=== PATIENT | male | born 1995 | race African-American/Black ===

== ENCOUNTER 2016-09-28 08:32 | Emergency (ER) | payer MEDICAID ==
[~2016-09-28] VITALS: Ht 177.8 cm; Wt 63.5 kg
[~2016-09-28 08:32] MED LIST: CARI-316 PO; HYDROCODONE/ACETAMINOPHEN PO; RANI-229 PO; TRAZ150T79 PO
[2016-09-28] MEDS ORDERED: SODIUM CHLORIDE 0.9% 1,000 ML IVB ONE (09:19)
[2016-09-28] MEDS ORDERED: MORPHINE SULF INJ 2 MG/ML SYRINGE 1ML IV PRN (09:30)
[2016-09-28] MEDS ORDERED: ONDANSETRON HCL 4 MG/2 ML VIAL IV ONE (09:30)
[2016-09-28] MEDS ORDERED: KETOROLAC TROMETH 30 MG/ML 1ML VIAL IV ONE (09:30)
[2016-09-28 09:36] LABS: Basophils # (auto) 0 uL; Basophils % (auto) 0.4 % (0.0-2.0); CONDITION Y; Eosinophils # (auto) 0.1 uL; Eosinophils % (auto) 1.9 % (0.0-7.0); Hematocrit 43.4 % (41.0-53.0); Hemoglobin 14.5 g/dL (13.5-17.5); Lymphocytes # (auto) 1.7 uL; Lymphocytes % (auto) 37.2 % (10.0-50.0); Mean Corpuscular Hemoglobin 30.6 pg (28.0-32.0); Mean Corpuscular Hgb Conc. 33.4 g/dL (32.0-36.0); Mean Corpuscular Volume 91.8 fL (80.0-100.0); Mean Platelet Volume 7.5 fL (7.4-10.4); Monocytes # (auto) 0.3 uL; Monocytes % (auto) 7.1 % (0.0-12.0); Neutrophils # (auto) 2.5 uL; Neutrophils % (auto) 53.4 % (37.0-80.0); Platelet Count (auto) 260 10^3/uL (140-450); Red Cell Distribution Width 13.4 % (11.6-16.0); White Blood Cell 4.7 10^3/uL (4.4-10.8)
[2016-09-28 09:50] VITALS: BP 144/63
[2016-09-28 10:04] LABS: Albumin 4.1 g/dL (3.4-5.0); BUN/Creatinine Ratio 9.8; Bilirubin, Total 1.5 mg/dL (0.2-1.0); Calcium 8.8 mg/dL (8.5-10.1); Potassium 3.7 mmol/L (3.5-5.1); Total Protein 7.4 g/dL (6.4-8.2)
[2016-09-28 10:13] LABS: Urine Bilirubin Negative (Negative); Urine Blood Negative /uL (Negative); Urine Color Yellow (Yellow); Urine Glucose Normal (Normal); Urine Ketone Negative (Negative); Urine Mucus FEW (None Seen); Urine Nitrite Negative (Negative); Urine RBC <1 /hpf (0 - 3); Urine pH 6.5 (5.0-8.0)
[2016-09-28] MEDS ORDERED: HYDROmorphone HCL 2 MG/ML VL IV ONE (10:15)
[2016-09-28] MEDS ORDERED: PANTOPRAZOLE 40 MG/10 ML VIAL IV ONE (11:00)
== END 2016-09-28 12:10 | disposition home or self-care (01) ==
LOC: ER 08:32
DX: R10.9 Unspecified abdominal pain (principal); R11.2 Nausea with vomiting, unspecified; R31.9 Hematuria, unspecified; M19.90 Unspecified osteoarthritis, unspecified site; K21.9 Gastro-esophageal reflux disease without esophagitis; Z79.899 Other long term (current) drug therapy; Z87.442 Personal history of urinary calculi
CPT/HCPCS: 36415; 74176; 80053; 81001; 83690; 85025; 94761; 96361; 96374; 96375; 99285; C9113; J1170; J1885; J2270; J2405; J7030

== ENCOUNTER 2017-04-23 14:49 | Emergency (ER) | payer MEDICAID ==
[~2017-04-23] VITALS: Ht 177.8 cm; Wt 65.8 kg
[2017-04-23] MEDS ORDERED: SODIUM CHLORIDE 0.9% 1,000 ML IV ONE ×2 (15:04)
[2017-04-23] MEDS ORDERED: ONDANSETRON HCL 4 MG/2 ML VIAL IV ONE (15:15)
[2017-04-23 15:20] LABS: Basophils # (auto) 0.1 uL; Basophils % (auto) 0.7 % (0.0-2.0); Eosinophils # (auto) 0 uL; Eosinophils % (auto) 0.3 % (0.0-7.0); Hematocrit 43.7 % (41.0-53.0); Hemoglobin 14.6 g/dL (13.5-17.5); Lymphocytes # (auto) 1.2 uL; Lymphocytes % (auto) 11.8 % (10.0-50.0); Mean Corpuscular Hemoglobin 30.6 pg (28.0-32.0); Mean Corpuscular Hgb Conc. 33.4 g/dL (32.0-36.0); Mean Corpuscular Volume 91.4 fL (80.0-100.0); Monocytes # (auto) 0.4 uL; Monocytes % (auto) 3.9 % (0.0-12.0); Neutrophils # (auto) 8.8 uL; Neutrophils % (auto) 83.3 % (37.0-80.0); Nucleated Red Blood Cells % 0.1 %; Platelet Count (auto) 276 10^3/uL (140-450); Red Blood Cells 4.78 10^6/uL (4.5-5.90); Red Cell Distribution Width 13.7 % (11.8-14.3); White Blood Cell 10.6 10^3/uL (4.4-10.8)
[2017-04-23 15:49] VITALS: BP 141/78
[2017-04-23 16:12] LABS: Alanine Aminotransferase 16 U/L (16-61); Albumin 4.4 g/dL (3.4-5.0); Alkaline Phosphatase 53 U/L (45-117); Anion Gap 11 (5-15); Aspartate Aminotransferase 13 U/L (15-37); BUN/Creatinine Ratio 5.4; Bilirubin, Total 1.4 mg/dL (0.2-1.0); Blood Urea Nitrogen 5 mg/dL (7-18); Calcium 9.2 mg/dL (8.5-10.1); Carbon Dioxide 22 mmol/L (21-32); Chloride 108 mmol/L (98-107); GFR African American 131 mL/min; GFR Non-African American 108 mL/min; Glucose 102 mg/dL (74-106); Potassium 3.9 mmol/L (3.5-5.1); Sodium 141 mmol/L (136-145); Total Protein 8.2 g/dL (6.4-8.2)
[2017-04-23 17:36] LABS: Urine Bacteria NONE SEEN /hpf (None Seen); Urine Blood Negative /uL (Negative); Urine Mucus FEW (None Seen); Urine Specific Gravity 1.018 (1.001-1.035); Urine WBC <1 /hpf (0 - 3)
== END 2017-04-23 17:43 | disposition home or self-care (01) ==
LOC: EDBD 14:49 → ER 14:49
DX: K52.9 Noninfective gastroenteritis and colitis, unspecified (principal); K21.9 Gastro-esophageal reflux disease without esophagitis; Z87.442 Personal history of urinary calculi
CPT/HCPCS: 36415; 74176; 80053; 81001; 84484; 85025; 96361; 96374; 99285; J2405; J7030

== ENCOUNTER 2017-04-25 07:13 | Inpatient (IN) | payer MEDICAID ==
[~2017-04-25] VITALS: Ht 180.3 cm; Wt 62.0 kg
[2017-04-25] MEDS ORDERED: ONDANSETRON HCL 4 MG/2 ML VIAL IV ONE (08:00)
[2017-04-25] MEDS ORDERED: SODIUM CHLORIDE 0.9% 1,000 ML IV ONE ×3 (08:00→08:37)
[2017-04-25] MEDS ORDERED: ONDANSETRON HCL 4 MG/2 ML VIAL ONE (08:01)
[2017-04-25 08:18] LABS: Basophils # (auto) 0.1 uL; Basophils % (auto) 1.2 % (0.0-2.0); Eosinophils # (auto) 0 uL; Eosinophils % (auto) 0.2 % (0.0-7.0); Hematocrit 42.9 % (41.0-53.0); Hemoglobin 14.5 g/dL (13.5-17.5); Lymphocytes % (auto) 12.5 % (10.0-50.0); Mean Corpuscular Hemoglobin 30.6 pg (28.0-32.0); Mean Corpuscular Hgb Conc. 33.7 g/dL (32.0-36.0); Mean Corpuscular Volume 90.9 fL (80.0-100.0); Monocytes # (auto) 0.4 uL; Monocytes % (auto) 4.6 % (0.0-12.0); Neutrophils # (auto) 6.8 uL; Neutrophils % (auto) 81.5 % (37.0-80.0); Nucleated Red Blood Cells % 0.1 %; Platelet Count (auto) 252 10^3/uL (140-450); Red Blood Cells 4.73 10^6/uL (4.5-5.90); Red Cell Distribution Width 13.8 % (11.8-14.3); White Blood Cell 8.3 10^3/uL (4.4-10.8)
[2017-04-25] MEDS ORDERED: PROMETHAZINE HCL 25 MG/ML 1ML ONE (08:20)
[2017-04-25] MEDS ORDERED: PROMETHAZINE HCL 25 MG/ML 1ML IV ONE (08:30)
[2017-04-25 08:32] LABS: Albumin 4.6 g/dL (3.4-5.0); BUN/Creatinine Ratio 5.8; Bilirubin, Total 2.2 mg/dL (0.2-1.0); Calcium 9.3 mg/dL (8.5-10.1); Potassium 3.2 mmol/L (3.5-5.1); Total Protein 8.2 g/dL (6.4-8.2)
[2017-04-25] MEDS ORDERED: DIAZEPAM 5 MG/ML 2ML SYRG IV ONE (08:45)
[2017-04-25] MEDS ORDERED: NITROGLYCERIN 0.4 MG SL TAB SL PRN (11:15)
[2017-04-25] MEDS ORDERED: ACETAMINOPHEN 500 MG TAB PO PRN (11:15)
[2017-04-25] MEDS ORDERED: FAMOTIDINE (10MG/ML) 2ML VL IV SCH (11:15)
[2017-04-25] MEDS ORDERED: TEMAZEPAM 15 MG CAP PO PRN (11:15)
[2017-04-25] MEDS ORDERED: MORPHINE SULFATE 4 MG/ML SYR/VIAL IV PRN (11:15)
[2017-04-25] MEDS ORDERED: LORazepam 0.5 MG TAB PO PRN (11:15)
[2017-04-25] MEDS ORDERED: HYDROcodone-ACET 5/325MG TAB PO PRN (11:15)
[2017-04-25] MEDS ORDERED: GASTROGRAFIN 30 ML SOL ONE (11:22)
[2017-04-25] MEDS: PROMETHAZINE HCL 25 MG/ML 1ML IV PRN ×2 (11:32→20:41)
[2017-04-25 11:46] LABS: Amylase 110 U/L (25-115); Lipase 124 U/L (73-393)
[2017-04-25] MEDS: SOD CHL 0.9%/ KCL 20MEQ 1,000 ML IV SCH ×2 (11:49→20:43)
[2017-04-25 12:54] LABS: Urine Bacteria NONE SEEN /hpf (None Seen); Urine Blood Negative /uL (Negative); Urine Specific Gravity 1.013 (1.001-1.035); Urine WBC <1 /hpf (0 - 3)
[2017-04-25] MEDS ORDERED: IOHEXOL 300 MG/ML 100ML BOTTLE IJ ONE (13:52)
[2017-04-25 16:12] LABS: Alcohol, Urine < 3.0 mg/dL (0-5); Amphetamine Screen, Urine NEGATIVE (NEGATIVE); Barbiturate Scree,Urine NEGATIVE (NEGATIVE); Benzodiazephine Screen, Urine NEGATIVE (NEGATIVE); Cannabinoid Screen, Urine POSITIVE (NEGATIVE); Cocaine Screen, Urine NEGATIVE (NEGATIVE); Opiate Scree,Urine NEGATIVE (NEGATIVE); Phencyclidine Screen, Urine NEGATIVE (NEGATIVE)
[2017-04-25] MEDS: MORPHINE SULFATE 4 MG/ML SYR/VIAL IV PRN (20:42)
[2017-04-25 22:03] VITALS: BP 152/82
[2017-04-25] MEDS: PANTOPRAZOLE 40 MG TAB PO SCH (22:48)
[2017-04-26] MEDS: PROMETHAZINE HCL 25 MG/ML 1ML IV PRN ×3 (00:49→09:25)
[2017-04-26] MEDS: MORPHINE SULFATE 4 MG/ML SYR/VIAL IV PRN ×3 (00:49→09:26)
[2017-04-26] MEDS: SOD CHL 0.9%/ KCL 20MEQ 1,000 ML IV SCH (03:55)
[2017-04-26 05:08] VITALS: BP 133/73
[2017-04-26] MEDS ORDERED: LIDOCAINE VISCOUS 2% 15ML UD ONE (07:52)
[2017-04-26] MEDS ORDERED: diphenhdrAMINE HCL 50 MG/1 ML VL ONE (07:53)
[2017-04-26 08:30] VITALS: BP 131/75
[2017-04-26] MEDS: PANTOPRAZOLE 40 MG TAB PO SCH ×2 (09:32→09:40)
[2017-04-26 09:35] LABS: INR 1.16 (0.9-1.15); Partial Thromboplastin Time 27.5 sec (22.64-33.71); Prothrombin Time 12.7 sec (9.37-12.3)
[2017-04-26 11:47] VITALS: BP 122/70
[2017-04-26] MEDS: MIDAZOLAM HCL 5 MG/ML-1ML VIAL ONE ×2 (12:18→12:21)
[2017-04-26] MEDS: fentaNYL CITRATE 100 MCG/2 ML VL ONE ×2 (12:18→12:21)
[2017-04-26] MEDS ORDERED: PANT40T PO (13:44)
[2017-04-26] MEDS ORDERED: SUCR1TAB38 PO (13:44)
[2017-04-26 16:56] VITALS: BP 129/82
== END 2017-04-26 19:10 | disposition home or self-care (01) | DRG 241 ==
LOC: EDBD 07:13 → ER 07:17 → TELE 07:18 → TELE-EAST 20:00
PROVIDERS: ADMIT Internal Medicine; ATTEND Hospitalist
PROC: 0DB68ZX Excision of Stomach, Via Natural or Artificial Opening Endoscopic, Diagnostic (ICD-10-PCS; principal; 2017-04-26 12:16)
DX: K29.00 Acute gastritis without bleeding (principal); E87.6 Hypokalemia; K52.9 Noninfective gastroenteritis and colitis, unspecified; F12.90 Cannabis use, unspecified, uncomplicated; K21.9 Gastro-esophageal reflux disease without esophagitis; G47.00 Insomnia, unspecified; Z80.9 Family history of malignant neoplasm, unspecified; Z82.49 Family history of ischemic heart disease and other diseases of the circulatory system; Z87.442 Personal history of urinary calculi; Z79.899 Other long term (current) drug therapy; Z71.51 Drug abuse counseling and surveillance of drug abuser
CPT/HCPCS: 36415; 43239; 71045; 74177; 76705; 80053; 80307; 81001; 82150; 83690; 85025; 85610; 85652; 85730; 96361; 96374; 96375; J2250; J2405; J3490

== ENCOUNTER 2018-03-04 15:28 | Emergency (ER) | payer MEDICAID ==
[~2018-03-04] VITALS: Ht 177.8 cm; Wt 63.5 kg
[~2018-03-04 15:28] MED LIST changes: -CARI-316 PO; +CARI350T22 PO; +PANT40T PO; +SUCR1TAB38 PO
[2018-03-04 15:58] LABS: Basophils # (auto) 0 uL; Basophils % (auto) 0.6 % (0.0-2.0); Eosinophils # (auto) 0 uL; Eosinophils % (auto) 0.6 % (0.0-7.0); Hematocrit 44.6 % (41.0-53.0); Hemoglobin 15.2 g/dL (13.5-17.5); Lymphocytes # (auto) 2.1 uL; Lymphocytes % (auto) 32.2 % (10.0-50.0); Mean Corpuscular Hemoglobin 31.6 pg (28.0-32.0); Mean Corpuscular Hgb Conc. 34.1 g/dL (32.0-36.0); Mean Corpuscular Volume 92.7 fL (80.0-100.0); Monocytes # (auto) 0.5 uL; Monocytes % (auto) 7.5 % (0.0-12.0); Neutrophils # (auto) 3.9 uL; Neutrophils % (auto) 59.1 % (37.0-80.0); Platelet Count (auto) 260 10^3/uL (140-450); Red Blood Cells 4.81 10^6/uL (4.5-5.90); Red Cell Distribution Width 14.1 % (11.8-14.3); White Blood Cell 6.7 10^3/uL (4.4-10.8)
[2018-03-04] MEDS ORDERED: ONDANSETRON HCL 4 MG/2 ML VIAL IV ONE (16:00)
[2018-03-04] MEDS ORDERED: SODIUM CHLORIDE 0.9% 1,000 ML IV ONE (16:00)
[2018-03-04] MEDS ORDERED: KETOROLAC TROMETH 30 MG/ML 1ML VIAL IV ONE (16:00)
[2018-03-04 16:12] LABS: Albumin 4.3 g/dL (3.4-5.0); Amylase 110 U/L (25-115); Anion Gap 1 (5-15); Blood Urea Nitrogen 11 mg/dL (7-18); Calcium 8.9 mg/dL (8.5-10.1); Carbon Dioxide 28 mmol/L (21-32); Chloride 109 mmol/L (98-107); Glucose 92 mg/dL (74-106); Lipase 103 U/L (73-393); Potassium 4.5 mmol/L (3.5-5.1); Sodium 138 mmol/L (136-145)
[2018-03-04 16:16] LABS: Alanine Aminotransferase 21 U/L (16-61); Alkaline Phosphatase 60 U/L (45-117); Aspartate Aminotransferase 14 U/L (15-37); BUN/Creatinine Ratio 10.4; Bilirubin, Total 1.4 mg/dL (0.2-1.0); GFR African American > 60 mL/min; GFR Non-African American > 60 mL/min
[2018-03-04] MEDS ORDERED: MORPHINE SULFATE 10 MG/ML INJ 1ML SDV IV ONE (17:30)
[2018-03-04] MEDS ORDERED: PROMETHAZINE HCL 25 MG/ML 1ML IV ONE (17:30)
[2018-03-04 18:42] VITALS: BP 138/85
[2018-03-04 20:39] LABS: Urine Amorphous Crystal FEW /hpf (None Seen); Urine Bacteria NONE SEEN /hpf (None Seen); Urine Blood Negative /uL (Negative); Urine Mucus FEW (None Seen); Urine Specific Gravity 1.023 (1.001-1.035); Urine WBC 3 /hpf (0 - 3)
== END 2018-03-04 21:48 | disposition home or self-care (01) ==
LOC: ER 15:30
DX: R10.31 Right lower quadrant pain (principal); R11.2 Nausea with vomiting, unspecified; J45.909 Unspecified asthma, uncomplicated; F12.90 Cannabis use, unspecified, uncomplicated; Z87.442 Personal history of urinary calculi; Z79.899 Other long term (current) drug therapy
CPT/HCPCS: 36415; 74176; 80053; 81001; 82150; 83690; 83735; 85025; 94761; 96361; 96374; 96375; 99284; J1885; J2270; J2405; J2550; J7030

== ENCOUNTER 2019-02-28 11:08 | Emergency (ER) | payer MEDICAID ==
[~2019-02-28] VITALS: Ht 175.3 cm; Wt 63.5 kg
[2019-02-28 12:38] LABS: Basophils # (auto) 0.1 uL; Basophils % (auto) 0.7 % (0.0-2.0); Eosinophils # (auto) 0.1 uL; Eosinophils % (auto) 0.7 % (0.0-7.0); Hematocrit 47.2 % (41.0-53.0); Hemoglobin 15.7 g/dL (13.5-17.5); Lymphocytes # (auto) 0.9 uL; Lymphocytes % (auto) 7.1 % (10.0-50.0); Mean Corpuscular Hemoglobin 30.6 pg (28.0-32.0); Mean Corpuscular Hgb Conc. 33.3 g/dL (32.0-36.0); Mean Corpuscular Volume 91.8 fL (80.0-100.0); Monocytes # (auto) 0.9 uL; Monocytes % (auto) 6.4 % (0.0-12.0); Neutrophils # (auto) 11.3 uL; Neutrophils % (auto) 85.1 % (37.0-80.0); Platelet Count (auto) 256 10^3/uL (140-450); Red Blood Cells 5.15 10^6/uL (4.5-5.90); Red Cell Distribution Width 14.5 % (11.8-14.3); White Blood Cell 13.3 10^3/uL (4.4-10.8)
[2019-02-28] MEDS ORDERED: MORPHINE SULFATE 4 MG/ML SYR/VIAL IV ONE (12:45)
[2019-02-28] MEDS ORDERED: PROCHLORPERAZINE EDISYLATE 5 MG/ML 2ML VIAL IV ONE (12:45)
[2019-02-28 12:53] VITALS: BP 119/71
[2019-02-28 12:54] LABS: Albumin 4.2 g/dL (3.4-5.0); Calcium 9.3 mg/dL (8.5-10.1); Potassium 4.9 mmol/L (3.5-5.1)
[2019-02-28 12:57] LABS: BUN/Creatinine Ratio 10.9; Bilirubin, Total 1.4 mg/dL (0.2-1.0); Total Protein 8.2 g/dL (6.4-8.2)
[2019-02-28] MEDS ORDERED: IOHEXOL 300 MG/ML 100ML BOTTLE IJ ONE (13:01)
== END 2019-02-28 15:54 | disposition home or self-care (01) ==
LOC: MERGE 11:08 → EDBD 11:08 → ER 11:08
DX: E86.0 Dehydration (principal); D72.829 Elevated white blood cell count, unspecified; J45.909 Unspecified asthma, uncomplicated; K21.9 Gastro-esophageal reflux disease without esophagitis
CPT/HCPCS: 36415; 74177; 80053; 85025; 96374; 96375; 99284; J0780; J2270; J7030; Q9967

== ENCOUNTER 2019-04-13 15:18 | Emergency (ER) | payer MEDICAID ==
[~2019-04-13] VITALS: Ht 180.3 cm; Wt 63.5 kg
[2019-04-13 19:07] VITALS: BP 129/87
[2019-04-13] MEDS ORDERED: cefTRIAXone SOD 1,000 MG VL ONE (19:27)
[2019-04-13] MEDS ORDERED: KETOROLAC TROMETH 60MG/2ML VIAL IM ONE (19:30)
[2019-04-13] MEDS ORDERED: cefTRIAXone W LIDOCAINE 1 GM IM IM ONE (19:30)
[2019-04-13] MEDS ORDERED: LIDOCAINE VISCOUS 2% 15ML UD MT ONE (19:30)
== END 2019-04-13 19:45 | disposition home or self-care (01) ==
LOC: ER 15:24
DX: G89.18 Other acute postprocedural pain (principal); R07.0 Pain in throat; J45.909 Unspecified asthma, uncomplicated; Z90.89 Acquired absence of other organs; Z88.8 Allergy status to other drugs, medicaments and biological substances; Z79.899 Other long term (current) drug therapy
CPT/HCPCS: 96372; 99284; J0696; J1885

== ENCOUNTER 2019-08-27 15:13 | Emergency (ER) | payer MEDICAID ==
[~2019-08-27] VITALS: Ht 177.8 cm; Wt 63.5 kg
[~2019-08-27 15:13] MED LIST changes: -RANI-229 PO; +RANI300T PO
[2019-08-27 17:02] LABS: Basophils # (auto) 0 10 ^3/uL (0-0.2); Basophils % (auto) 0.7 % (0.0-2.0); Eosinophils # (auto) 0 10 ^3/uL (0-0.8); Eosinophils % (auto) 0.6 % (0.0-7.0); Hematocrit 45.6 % (41.0-53.0); Hemoglobin 15.2 g/dL (13.5-17.5); Lymphocytes # (auto) 1.7 10 ^3/uL (0.4-5.4); Lymphocytes % (auto) 28.4 % (10.0-50.0); Mean Corpuscular Hemoglobin 30.4 pg (28.0-32.0); Mean Corpuscular Hgb Conc. 33.3 g/dL (32.0-36.0); Mean Corpuscular Volume 91.2 fL (80.0-100.0); Monocytes # (auto) 0.4 10 ^3/uL (0-1.3); Monocytes % (auto) 6.5 % (0.0-12.0); Neutrophils # (auto) 3.8 10 ^3/uL (1.6-8.6); Neutrophils % (auto) 63.8 % (37.0-80.0); Nucleated Red Blood Cells % 0.1 %; Platelet Count (auto) 253 10^3/uL (140-450)
[2019-08-27] MEDS ORDERED: SODIUM CHLORIDE 0.9% 1,000 ML IV ONE ×2 (17:04)
[2019-08-27 17:11] LABS: Albumin 4.4 g/dL (3.4-5.0); BUN/Creatinine Ratio 8.3; Bilirubin, Total 1.7 mg/dL (0.2-1.0); Calcium 9.6 mg/dL (8.5-10.1); Total Protein 8.3 g/dL (6.4-8.2)
[2019-08-27 18:01] VITALS: BP 145/84
== END 2019-08-27 18:33 | disposition home or self-care (01) ==
LOC: ER 15:13
DX: E86.0 Dehydration (principal); J40 Bronchitis, not specified as acute or chronic; R51 Headache; Z87.442 Personal history of urinary calculi
CPT/HCPCS: 36415; 71045; 80053; 83690; 85025; 93005; 96360; 99285; J7030

== ENCOUNTER 2020-03-14 22:04 | Emergency (ER) | payer MEDICAID ==
[~2020-03-14] VITALS: Ht 177.8 cm; Wt 63.5 kg
[~2020-03-14 22:04] MED LIST changes: +SUCR1TAB22 PO; -SUCR1TAB38 PO; -TRAZ150T79 PO; +TRAZ1TAB12 PO
[2020-03-14 22:18] VITALS: BP 130/84
[2020-03-14] MEDS ORDERED: ACETAMINOPHEN 500 MG TAB PO ONE (23:30)
== END 2020-03-15 00:06 | disposition home or self-care (01) ==
LOC: ER 22:05
DX: J01.90 Acute sinusitis, unspecified (principal); R51.9 Headache, unspecified; J45.909 Unspecified asthma, uncomplicated; Z20.822 Contact with and (suspected) exposure to COVID-19; Z87.442 Personal history of urinary calculi
CPT/HCPCS: 36415; 71046; 87426

== ENCOUNTER 2020-10-18 07:35 | Emergency (ER) | payer MEDICAID ==
[~2020-10-18] VITALS: Ht 177.8 cm; Wt 63.5 kg
[2020-10-18 07:35] VITALS: BP 116/60
[2020-10-18 08:06] LABS: Basophils # (auto) 0.1 10 ^3/uL (0-0.2); Eosinophils # (auto) 0.1 10 ^3/uL (0-0.8); Eosinophils % (auto) 1.8 % (0.0-7.0); Hematocrit 41.5 % (41.0-53.0); Hemoglobin 14.4 g/dL (13.5-17.5); Lymphocytes # (auto) 1.9 10 ^3/uL (0.4-5.4); Mean Corpuscular Hemoglobin 31.4 pg (28.0-32.0); Mean Corpuscular Hgb Conc. 34.7 g/dL (32.0-36.0); Mean Corpuscular Volume 90.4 fL (80.0-100.0); Monocytes # (auto) 0.5 10 ^3/uL (0-1.3); Monocytes % (auto) 8.4 % (0.0-12.0); Neutrophils # (auto) 3.8 10 ^3/uL (1.6-8.6); Neutrophils % (auto) 59.8 % (37.0-80.0); Nucleated Red Blood Cells % 0.1 %; Red Blood Cells 4.59 10^6/uL (4.5-5.90); Red Cell Distribution Width 13.7 % (11.8-14.3); White Blood Cell 6.4 10^3/uL (4.4-10.8)
[2020-10-18] MEDS ORDERED: ONDANSETRON HCL 4 MG/2 ML VIAL IV ONE (08:15)
[2020-10-18] MEDS ORDERED: SODIUM CHLORIDE 0.9% 1,000 ML IV ONE (08:15)
[2020-10-18 08:29] LABS: Calcium 8.9 mg/dL (8.5-10.1); Potassium 3.7 mmol/L (3.5-5.1)
[2020-10-18 08:33] LABS: BUN/Creatinine Ratio 8.2; Bilirubin, Total 1.6 mg/dL (0.2-1.0); Total Protein 7.6 g/dL (6.4-8.2)
== END 2020-10-18 09:07 | disposition left against medical advice (07) ==
LOC: ER 07:35
DX: R10.10 Upper abdominal pain, unspecified (principal); R11.2 Nausea with vomiting, unspecified; K21.9 Gastro-esophageal reflux disease without esophagitis; Z53.21 Procedure and treatment not carried out due to patient leaving prior to being seen by health care provider
CPT/HCPCS: 36415; 80053; 85025; J2405

== ENCOUNTER 2020-10-21 10:06 | Emergency (ER) | payer MEDICAID ==
[~2020-10-21] VITALS: Ht 177.8 cm; Wt 63.5 kg
[2020-10-21] MEDS ORDERED: SODIUM CHLORIDE 0.9% 1,000 ML IV ONE (10:30)
[2020-10-21] MEDS ORDERED: KETOROLAC TROMETH 30 MG/ML 1ML VIAL IV ONE (10:30)
[2020-10-21 10:57] VITALS: BP 131/71
[2020-10-21 11:35] LABS: Basophils # (auto) 0.1 10 ^3/uL (0-0.2); Basophils % (auto) 0.7 % (0.0-2.0); Eosinophils # (auto) 0 10 ^3/uL (0-0.8); Eosinophils % (auto) 0.1 % (0.0-7.0); Hematocrit 43.2 % (41.0-53.0); Lymphocytes # (auto) 1.7 10 ^3/uL (0.4-5.4); Lymphocytes % (auto) 24.4 % (10.0-50.0); Mean Corpuscular Hemoglobin 31.5 pg (28.0-32.0); Mean Corpuscular Hgb Conc. 34.7 g/dL (32.0-36.0); Mean Corpuscular Volume 90.7 fL (80.0-100.0); Monocytes # (auto) 0.5 10 ^3/uL (0-1.3); Neutrophils # (auto) 4.6 10 ^3/uL (1.6-8.6); Neutrophils % (auto) 66.8 % (37.0-80.0); Red Blood Cells 4.77 10^6/uL (4.5-5.90); Red Cell Distribution Width 13.4 % (11.8-14.3); White Blood Cell 6.8 10^3/uL (4.4-10.8)
[2020-10-21 12:18] LABS: Potassium 3.5 mmol/L (3.5-5.1); Sodium 135 mmol/L (136-145)
[2020-10-21 12:19] LABS: Alanine Aminotransferase 20 U/L (16-61); Alkaline Phosphatase 45 U/L (45-117); Anion Gap 9 (5-15); Aspartate Aminotransferase 14 U/L (15-37); BUN/Creatinine Ratio 11.5; Blood Urea Nitrogen 14 mg/dL (7-18); Calcium 8.9 mg/dL (8.5-10.1); Carbon Dioxide 21 mmol/L (21-32); Chloride 105 mmol/L (98-107); GFR African American 92 mL/min; GFR Non-African American 76 mL/min; Glucose 113 mg/dL (74-106)
[2020-10-21 12:20] LABS: Albumin 3.8 g/dL (3.4-5.0); Amylase 86 U/L (25-115); Bilirubin, Total 2.3 mg/dL (0.2-1.0); Lipase 130 U/L (73-393); Total Protein 7.6 g/dL (6.4-8.2)
== END 2020-10-21 13:23 | disposition home or self-care (01) ==
LOC: ER 10:06
DX: R10.84 Generalized abdominal pain (principal); R11.2 Nausea with vomiting, unspecified; J45.909 Unspecified asthma, uncomplicated; F12.10 Cannabis abuse, uncomplicated; Z87.442 Personal history of urinary calculi
CPT/HCPCS: 36415; 74176; 80053; 82150; 83690; 85025; 96361; 96374; 99284; J1885; J7030

== ENCOUNTER 2021-07-29 06:45 | Emergency (ER) | payer MEDICAID ==
[~2021-07-29] VITALS: Ht 177.8 cm; Wt 63.5 kg
[2021-07-29] MEDS ORDERED: PROCHLORPERAZINE EDISYLATE 5 MG/ML 2ML VIAL IV ONE (08:15)
[2021-07-29] MEDS ORDERED: ALUM & MAG HYDROX-SIMETH LIQ(MAALOX) 30 ML PO ONE (08:15)
[2021-07-29] MEDS ORDERED: SODIUM CHLORIDE 0.9% 500 ML IVB ONE (08:15)
[2021-07-29] MEDS ORDERED: PANTOPRAZOLE 40 MG TAB PO ONE (08:15)
[2021-07-29] MEDS ORDERED: SODIUM CHLORIDE 0.9% 1,000 ML IV ONE (08:15)
[2021-07-29] MEDS ORDERED: DONNATAL 5ml ORAL Elix (BELLADONNA ALK-PHENOBARB) PO ONE (08:15)
[2021-07-29 08:21] LABS: Basophils # (auto) 0 10 ^3/uL (0-0.2); Basophils % (auto) 0.7 % (0.0-2.0); Eosinophils # (auto) 0 10 ^3/uL (0-0.8); Eosinophils % (auto) 0.4 % (0.0-7.0); Hematocrit 40.3 % (41.0-53.0); Hemoglobin 13.9 g/dL (13.5-17.5); Lymphocytes # (auto) 1.5 10 ^3/uL (0.4-5.4); Lymphocytes % (auto) 22.5 % (10.0-50.0); Mean Corpuscular Hemoglobin 31.1 pg (28.0-32.0); Mean Corpuscular Hgb Conc. 34.6 g/dL (32.0-36.0); Monocytes # (auto) 0.6 10 ^3/uL (0-1.3); Neutrophils # (auto) 4.4 10 ^3/uL (1.6-8.6); Neutrophils % (auto) 67.4 % (37.0-80.0); Nucleated Red Blood Cells % 0.2 %; Red Blood Cells 4.48 10^6/uL (4.5-5.90); Red Cell Distribution Width 13.3 % (11.8-14.3); White Blood Cell 6.6 10^3/uL (4.4-10.8)
[2021-07-29 08:40] LABS: Albumin 3.8 g/dL (3.4-5.0); Calcium 8.5 mg/dL (8.5-10.1); Potassium 3.4 mmol/L (3.5-5.1)
[2021-07-29 08:40] LABS: Urine Bacteria NONE SEEN /hpf (None Seen); Urine Blood Negative /uL (Negative); Urine Mucus FEW (None Seen); Urine Specific Gravity 1.019 (1.001-1.035); Urine WBC 4 /hpf (0 - 3)
[2021-07-29 08:45] LABS: BUN/Creatinine Ratio 13.5; Bilirubin, Total 2.2 mg/dL (0.2-1.0)
[2021-07-29 08:50] LABS: Magnesium 2.2 mg/dL (1.6-2.6)
[2021-07-29 08:52] LABS: Benzodiazephine Screen, Urine NEGATIVE (NEGATIVE)
[2021-07-29 09:14] LABS: Alcohol, Urine < 3.0 mg/dL (0-10); Amphetamine Screen, Urine NEGATIVE (NEGATIVE); Barbiturate Scree,Urine NEGATIVE (NEGATIVE); Cannabinoid Screen, Urine POSITIVE (NEGATIVE); Cocaine Screen, Urine NEGATIVE (NEGATIVE); Opiate Scree,Urine NEGATIVE (NEGATIVE); Phencyclidine Screen, Urine NEGATIVE (NEGATIVE)
[2021-07-29 09:36] VITALS: BP 123/78
[2021-07-29] MEDS ORDERED: diphenhdrAMINE HCL 25 MG CAP PO ONE (10:00)
[2021-07-29] MEDS ORDERED: POTASSIUM EFFERVESENT TAB 25 MEQ PO ONE (10:15)
[2021-07-29] MEDS ORDERED: PANT40TA2 PO (11:00)
== END 2021-07-29 11:12 | disposition home or self-care (01) ==
LOC: ER 06:45 → EDBD 06:45 → ER 11:12
DX: R11.2 Nausea with vomiting, unspecified (principal); E87.6 Hypokalemia; E80.6 Other disorders of bilirubin metabolism; F12.10 Cannabis abuse, uncomplicated; J45.909 Unspecified asthma, uncomplicated; K21.9 Gastro-esophageal reflux disease without esophagitis; Z90.89 Acquired absence of other organs; Z79.899 Other long term (current) drug therapy; Z88.8 Allergy status to other drugs, medicaments and biological substances
CPT/HCPCS: 36415; 80053; 80307; 81001; 83690; 83735; 85025; 96361; 96374; 99284; J0780; J7030

== ENCOUNTER 2023-05-13 07:17 | Emergency (ER) | payer MEDICAID ==
[~2023-05-13] VITALS: Ht 177.8 cm; Wt 58.8 kg
[~2023-05-13 07:17] MED LIST changes: +CARI-578 PO; -CARI350T22 PO; +PANT40TA2 PO; -SUCR1TAB22 PO; +SUCR1TAB31 PO
[2023-05-13 07:30] VITALS: PULSE 86; RESP 19; TEMP 97.8; O2SAT 96
[2023-05-13 08:16] LABS: Basophils # (auto) 0.1 10 ^3/uL (0-0.2); Basophils % (auto) 0.6 % (0.0-2.0); Eosinophils # (auto) 0 10 ^3/uL (0-0.8); Eosinophils % (auto) 0.3 % (0.0-7.0); Hematocrit 47.8 % (41.0-53.0); Hemoglobin 16.2 g/dL (13.5-17.5); Lymphocytes # (auto) 1.8 10 ^3/uL (0.4-5.4); Lymphocytes % (auto) 22.2 % (10.0-50.0); Mean Corpuscular Hemoglobin 31.4 pg (28.0-32.0); Mean Corpuscular Hgb Conc. 33.8 g/dL (32.0-36.0); Mean Corpuscular Volume 92.9 fL (80.0-100.0); Monocytes # (auto) 0.9 10 ^3/uL (0-1.3); Monocytes % (auto) 11.8 % (0.0-12.0); Neutrophils # (auto) 5.2 10 ^3/uL (1.6-8.6); Neutrophils % (auto) 65.1 % (37.0-80.0); Nucleated Red Blood Cells % 0.4 %; Red Blood Cells 5.15 10^6/uL (4.5-5.90); Red Cell Distribution Width 13.2 % (11.8-14.3)
[2023-05-13 08:23] LABS: Alanine Aminotransferase 15 U/L (7-40); Albumin 5.2 g/dL (3.2-4.8); Alkaline Phosphatase 55 U/L (46-116); Anion Gap 9 (5-15); Aspartate Aminotransferase 12 U/L (13-40); Blood Urea Nitrogen 19 mg/dL (9-23); Calcium 10.3 mg/dL (8.5-10.1); Carbon Dioxide 27 mmol/L (20-30); Chloride 97 mmol/L (98-107); Glucose 132 mg/dL (74-106); Potassium 3.6 mmol/L (3.5-5.1); Sodium 133 mmol/L (136-145)
[2023-05-13 08:24] LABS: Bilirubin, Total 1.6 mg/dL (0.2-1.0); Total Protein 8.3 g/dL (5.7-8.2)
[2023-05-13] MEDS: ONDANSETRON HCL 4 MG/2 ML VIAL IV ONE (08:35)
[2023-05-13] MEDS: SODIUM CHLORIDE 0.9% 1,000 ML IV ONE (08:35)
[2023-05-13 09:16] LABS: Lipase 39 U/L (12-53)
[2023-05-13 10:05] LABS: Urine Bacteria FEW /hpf (None Seen); Urine Blood 1+ /uL (Negative); Urine Clarity Clear (Clear); Urine Color Yellow (Yellow); Urine Hyaline Cast MOD /lpf (0 - 2); Urine Mucus FEW (None Seen); Urine Protein, UAD 1+ (Negative); Urine Specific Gravity 1.028 (1.001-1.035); Urine Urobilinogen Normal (Negative); Urine WBC 8 /hpf (0 - 3)
[2023-05-13 10:23] LABS: Amphetamine Screen, Urine Neg (NEGATIVE)
[2023-05-13 10:24] LABS: Benzodiazephine Screen, Urine Neg (NEGATIVE)
[2023-05-13 10:25] LABS: Barbiturate Scree,Urine Neg (NEGATIVE)
[2023-05-13 10:26] LABS: Cannabinoid Screen, Urine Pos (NEGATIVE); Cocaine Screen, Urine Neg (NEGATIVE); Opiate Scree,Urine Neg (NEGATIVE); Phencyclidine Screen, Urine Neg (NEGATIVE)
[2023-05-13] MEDS: KETOROLAC TROMETH 30 MG/ML 1ML VIAL IV ONE (11:28)
[2023-05-13] MEDS ORDERED: BACDST PO (11:39)
[2023-05-13] MEDS ORDERED: ZOFR4T PO (11:39)
[2023-05-13] MEDS: cefTRIAXone 1GM/50ML D5W 50 ML IV ONE (11:54)
[2023-05-13 12:40] VITALS: BP 104/67; PULSE 80; RESP 17; O2SAT 97
== END 2023-05-13 12:44 | disposition home or self-care (01) ==
LOC: ER 07:17
DX: R11.2 Nausea with vomiting, unspecified (principal); F12.10 Cannabis abuse, uncomplicated; R19.7 Diarrhea, unspecified; R10.84 Generalized abdominal pain; K21.9 Gastro-esophageal reflux disease without esophagitis; J45.909 Unspecified asthma, uncomplicated; Z90.89 Acquired absence of other organs; Z79.899 Other long term (current) drug therapy; Z88.8 Allergy status to other drugs, medicaments and biological substances
CPT/HCPCS: 36415; 80053; 80307; 81001; 82962; 83690; 85025; 96361; 96365; 96375; 99285; J0696; J1885; J2405; J7030

== ENCOUNTER 2023-08-02 14:21 | Emergency (ER) | payer MEDICAID, OTHER ==
[~2023-08-02] VITALS: Ht 177.8 cm; Wt 61.1 kg
[~2023-08-02 14:21] MED LIST changes: +BACDST PO; +ZOFR4T PO
[2023-08-02] MEDS: PANTOPRAZOLE 40 MG/10 ML VIAL INJ IV ONE (15:05)
[2023-08-02] MEDS: PROCHLORPERAZINE EDISYLATE 5 MG/ML 2ML VIAL IV ONE (15:05)
[2023-08-02 15:08] VITALS: TEMP 98.4; O2SAT 98
[2023-08-02] MEDS: MORPHINE SULFATE 4 MG/ML SYR/VIAL IV ONE (15:09)
[2023-08-02] MEDS: SODIUM CHLORIDE 0.9% 1,000 ML IVB ONE (15:11)
[2023-08-02 15:39] VITALS: BP 126/76; PULSE 70; RESP 18
[2023-08-02 15:43] LABS: Basophils # (auto) 0.1 10 ^3/uL (0-0.2); Basophils % (auto) 0.8 % (0.0-2.0); Eosinophils # (auto) 0.1 10 ^3/uL (0-0.8); Lymphocytes # (auto) 1.4 10 ^3/uL (0.4-5.4); Monocytes # (auto) 0.8 10 ^3/uL (0-1.3); Nucleated Red Blood Cells % 0.1 %; Red Blood Cells 4.66 10^6/uL (4.5-5.90); White Blood Cell 11.2 10^3/uL (4.4-10.8)
[2023-08-02 15:45] LABS: Eosinophils % (auto) 0.5 % (0.0-7.0); Hematocrit 41.9 % (41.0-53.0); Hemoglobin 14.7 g/dL (13.5-17.5); Lymphocytes % (auto) 12.7 % (10.0-50.0); Mean Corpuscular Hemoglobin 31.5 pg (28.0-32.0); Mean Corpuscular Hgb Conc. 35.1 g/dL (32.0-36.0); Mean Corpuscular Volume 89.8 fL (80.0-100.0); Monocytes % (auto) 6.9 % (0.0-12.0); Neutrophils # (auto) 8.9 10 ^3/uL (1.6-8.6); Neutrophils % (auto) 79.1 % (37.0-80.0); Red Cell Distribution Width 13.1 % (11.8-14.3)
[2023-08-02 15:50] LABS: Alanine Aminotransferase 16 U/L (7-40); Albumin 4.7 g/dL (3.2-4.8); Alkaline Phosphatase 82 U/L (46-116); Anion Gap 8 (5-15); Aspartate Aminotransferase 14 U/L (13-40); Blood Urea Nitrogen 8 mg/dL (9-23); Calcium 10.1 mg/dL (8.7-10.4); Carbon Dioxide 23 mmol/L (20-30); Chloride 106 mmol/L (98-107); Glucose 107 mg/dL (74-106); Lipase 35 U/L (12-53); Sodium 137 mmol/L (136-145)
[2023-08-02 15:51] LABS: Bilirubin, Total 1.2 mg/dL (0.2-1.0); Total Protein 8.4 g/dL (5.7-8.2)
== END 2023-08-02 15:54 | disposition left against medical advice (07) ==
LOC: ER 14:22
DX: F12.188 Cannabis abuse with other cannabis-induced disorder (principal); J45.909 Unspecified asthma, uncomplicated; K21.9 Gastro-esophageal reflux disease without esophagitis; Z87.442 Personal history of urinary calculi
CPT/HCPCS: 36415; 80053; 83690; 85025; 96361; 96374; 96375; 99284; C9113; J0780; J2270; J7030

== ENCOUNTER 2023-09-01 01:27 | Inpatient (IN) | payer MEDICAID, OTHER ==
[~2023-09-01] VITALS: Ht 177.8 cm; Wt 69.3 kg
[2023-09-01] MEDS: SODIUM CHLORIDE 0.9% 1,000 ML IVB ONE (02:30)
[2023-09-01] MEDS: ONDANSETRON HCL 4 MG/2 ML VIAL IV ONE ×2 (02:55→05:36)
[2023-09-01] MEDS: PANTOPRAZOLE 40 MG/10 ML VIAL INJ IV ONE (02:55)
[2023-09-01 02:56] LABS: Basophils # (auto) 0.1 10 ^3/uL (0-0.2); Basophils % (auto) 0.7 % (0.0-2.0); Eosinophils # (auto) 0 10 ^3/uL (0-0.8); Eosinophils % (auto) 0.1 % (0.0-7.0)
[2023-09-01 02:57] LABS: Hematocrit 43.6 % (41.0-53.0); Hemoglobin 14.7 g/dL (13.5-17.5); Lymphocytes % (auto) 6.3 % (10.0-50.0); Mean Corpuscular Hemoglobin 30.5 pg (28.0-32.0); Mean Corpuscular Hgb Conc. 33.6 g/dL (32.0-36.0); Mean Corpuscular Volume 90.7 fL (80.0-100.0); Monocytes # (auto) 0.7 10 ^3/uL (0-1.3); Monocytes % (auto) 4.4 % (0.0-12.0); Neutrophils # (auto) 13.8 10 ^3/uL (1.6-8.6); Neutrophils % (auto) 88.5 % (37.0-80.0); Red Blood Cells 4.81 10^6/uL (4.5-5.90); Red Cell Distribution Width 14.6 % (11.8-14.3); White Blood Cell 15.5 10^3/uL (4.4-10.8)
[2023-09-01 03:09] LABS: Alanine Aminotransferase 59 U/L (7-40); Albumin 4.3 g/dL (3.2-4.8); Alkaline Phosphatase 173 U/L (46-116); Anion Gap 9 (5-15); Aspartate Aminotransferase 30 U/L (13-40); BUN/Creatinine Ratio 9.4 (10.0-20.0); Bilirubin, Total 1.3 mg/dL (0.2-1.0); Blood Urea Nitrogen 10 mg/dL (9-23); Calcium 10.4 mg/dL (8.7-10.4); Carbon Dioxide 24 mmol/L (20-30); Chloride 108 mmol/L (98-107); Glucose 146 mg/dL (74-106); Lipase 23 U/L (12-53); Potassium 4.2 mmol/L (3.5-5.1); Sodium 141 mmol/L (136-145); Total Protein 8.1 g/dL (5.7-8.2)
[2023-09-01] MEDS ORDERED: ZOFR4T PO (05:27)
[2023-09-01] MEDS: KETOROLAC TROMETH 30 MG/ML 1ML VIAL IV ONE (05:36)
[2023-09-01] MEDS: SODIUM CHLORIDE 0.9% 1,000 ML IV ONE (05:36)
[2023-09-01] MEDS: IOHEXOL 300 MG/ML 100ML BOTTLE IJ ONE (06:13)
[2023-09-01] MEDS: SODIUM CHLORIDE 0.9% 1,000 ML IV SCH ×2 (06:30→08:30)
[2023-09-01 06:36] LABS: Chloride 111 mmol/L (98-107); Potassium 4.5 mmol/L (3.5-5.1); Sodium 141 mmol/L (136-145)
[2023-09-01 06:37] LABS: Anion Gap 5 (5-15); Calcium 8.9 mg/dL (8.7-10.4); Carbon Dioxide 25 mmol/L (20-30)
[2023-09-01 06:38] LABS: Basophils # (auto) 0.1 10 ^3/uL (0-0.2); Basophils % (auto) 0.3 % (0.0-2.0); Eosinophils # (auto) 0 10 ^3/uL (0-0.8); Hematocrit 38.1 % (41.0-53.0); Hemoglobin 12.6 g/dL (13.5-17.5); Lymphocytes # (auto) 0.6 10 ^3/uL (0.4-5.4); Lymphocytes % (auto) 3.2 % (10.0-50.0); Mean Corpuscular Hemoglobin 30.2 pg (28.0-32.0); Mean Corpuscular Hgb Conc. 33.2 g/dL (32.0-36.0); Monocytes # (auto) 0.4 10 ^3/uL (0-1.3); Monocytes % (auto) 2.1 % (0.0-12.0); Neutrophils # (auto) 18.5 10 ^3/uL (1.6-8.6); Neutrophils % (auto) 94.4 % (37.0-80.0); Red Blood Cells 4.19 10^6/uL (4.5-5.90); Red Cell Distribution Width 14.3 % (11.8-14.3); White Blood Cell 19.6 10^3/uL (4.4-10.8)
[2023-09-01 06:42] LABS: Glucose 129 mg/dL (74-106)
[2023-09-01 07:01] LABS: BUN/Creatinine Ratio 14.4 (10.0-20.0); Blood Urea Nitrogen 13 mg/dL (9-23)
[2023-09-01 07:34] VITALS: PULSE 78
[2023-09-01] MEDS: PROCHLORPERAZINE EDISYLATE 5 MG/ML 2ML VIAL IV ONE (09:01)
[2023-09-01] MEDS: PANTOPRAZOLE 40 MG/10 ML VIAL INJ IV SCH (09:03)
[2023-09-01] MEDS: PIPERACILLIN-TAZOB 3.375GM 100 ML IV SCH (12:34)
[2023-09-01] MEDS: ONDANSETRON HCL 4 MG/2 ML VIAL IV PRN (12:35)
[2023-09-01] MEDS: VANCOMYCIN HCL 125 MG CAP PO SCH (14:00)
[2023-09-01 20:00] VITALS: PULSE 68; RESP 17
[2023-09-01 22:00] VITALS: BP 113/64; PULSE 68; RESP 17; TEMP 99.3; O2SAT 97
[2023-09-02] MEDS ORDERED: HYDROcodone-ACET 5/325MG TAB PO PRN (00:15)
[2023-09-02] MEDS ORDERED: ACETAMINOPHEN 325 MG TAB PO PRN (00:15)
[2023-09-02] MEDS: MORPHINE SULFATE INJ 2 MG/ml SYRG IV PRN (01:58)
[2023-09-02 04:19] LABS: Basophils # (auto) 0 10 ^3/uL (0-0.2); Basophils % (auto) 0.3 % (0.0-2.0); Eosinophils # (auto) 0 10 ^3/uL (0-0.8); Eosinophils % (auto) 0.1 % (0.0-7.0); Hematocrit 34.1 % (41.0-53.0); Hemoglobin 11.5 g/dL (13.5-17.5); Lymphocytes # (auto) 1.2 10 ^3/uL (0.4-5.4); Lymphocytes % (auto) 12.2 % (10.0-50.0); Mean Corpuscular Hemoglobin 30.8 pg (28.0-32.0); Mean Corpuscular Hgb Conc. 33.9 g/dL (32.0-36.0); Mean Corpuscular Volume 90.8 fL (80.0-100.0); Monocytes # (auto) 0.7 10 ^3/uL (0-1.3); Monocytes % (auto) 7.6 % (0.0-12.0); Neutrophils # (auto) 7.7 10 ^3/uL (1.6-8.6); Neutrophils % (auto) 79.8 % (37.0-80.0); Red Blood Cells 3.75 10^6/uL (4.5-5.90); Red Cell Distribution Width 14.6 % (11.8-14.3); White Blood Cell 9.6 10^3/uL (4.4-10.8)
[2023-09-02 04:38] LABS: Alanine Aminotransferase 37 U/L (7-40); Albumin 3.4 g/dL (3.2-4.8); Alkaline Phosphatase 118 U/L (46-116); Anion Gap 6 (5-15); Aspartate Aminotransferase 15 U/L (13-40); BUN/Creatinine Ratio 12.2 (10.0-20.0); Bilirubin, Total 1.4 mg/dL (0.2-1.0); Blood Urea Nitrogen 10 mg/dL (9-23); Calcium 8.6 mg/dL (8.7-10.4); Carbon Dioxide 24 mmol/L (20-30); Chloride 109 mmol/L (98-107); Glucose 99 mg/dL (74-106); Potassium 3.6 mmol/L (3.5-5.1); Sodium 139 mmol/L (136-145); Total Protein 6.1 g/dL (5.7-8.2)
[2023-09-02] MEDS: PROCHLORPERAZINE EDISYLATE 5 MG/ML 2ML VIAL IV ONE (06:30)
[2023-09-02 07:40] VITALS: PULSE 76; RESP 16; O2SAT 97
[2023-09-02] MEDS: METOCLOPRAMIDE HCL 5MG/ml INJ 2ml VIAL IV PRN (13:52)
[2023-09-02] MEDS: HYDROmorphone HCL 2 MG/ML VL/or syr IV PRN (13:52)
[2023-09-02] MEDS: SUCRALFATE 1 GM/10 ML ORAL SUSP PO ONE (13:58)
[2023-09-02 20:00] VITALS: BP 112/62; PULSE 57; PULSE 68; RESP 18; TEMP 98.2; O2SAT 98
[2023-09-03 00:38] VITALS: BP 112/63; PULSE 65; RESP 19; TEMP 98; O2SAT 96
[2023-09-03 04:00] VITALS: BP 118/64; PULSE 68; RESP 16; TEMP 98; O2SAT 98
[2023-09-03 07:46] LABS: Basophils # (auto) 0.1 10 ^3/uL (0-0.2); Basophils % (auto) 1.4 % (0.0-2.0); Eosinophils # (auto) 0.1 10 ^3/uL (0-0.8); Eosinophils % (auto) 1.6 % (0.0-7.0); Hematocrit 31.4 % (41.0-53.0); Hemoglobin 10.6 g/dL (13.5-17.5); Lymphocytes # (auto) 1.6 10 ^3/uL (0.4-5.4); Lymphocytes % (auto) 28.3 % (10.0-50.0); Mean Corpuscular Hemoglobin 30.6 pg (28.0-32.0); Mean Corpuscular Hgb Conc. 33.7 g/dL (32.0-36.0); Mean Corpuscular Volume 90.8 fL (80.0-100.0); Monocytes # (auto) 0.6 10 ^3/uL (0-1.3); Monocytes % (auto) 9.9 % (0.0-12.0); Neutrophils # (auto) 3.3 10 ^3/uL (1.6-8.6); Neutrophils % (auto) 58.8 % (37.0-80.0); Red Blood Cells 3.46 10^6/uL (4.5-5.90); Red Cell Distribution Width 14.4 % (11.8-14.3); White Blood Cell 5.7 10^3/uL (4.4-10.8)
[2023-09-03 07:58] VITALS: PULSE 57; RESP 16; O2SAT 96
[2023-09-03 08:04] LABS: Calcium 8.2 mg/dL (8.7-10.4); Chloride 108 mmol/L (98-107); Potassium 3.4 mmol/L (3.5-5.1); Sodium 138 mmol/L (136-145)
[2023-09-03 08:05] LABS: Anion Gap 5 (5-15); Carbon Dioxide 25 mmol/L (20-30)
[2023-09-03 08:10] LABS: BUN/Creatinine Ratio 8.1 (10.0-20.0); Blood Urea Nitrogen 6 mg/dL (9-23); Glucose 90 mg/dL (74-106)
[2023-09-03] MEDS: SUCRALFATE 1 GM TAB PO SCH (17:21)
[2023-09-03 20:00] VITALS: BP 124/76; PULSE 54; RESP 17; TEMP 98.6; O2SAT 97
[2023-09-03 23:17] VITALS: BP 113/86; PULSE 58; RESP 20; TEMP 98.5; O2SAT 98
[2023-09-04] VITALS (10 sets, daily range): BP systolic 113–145; BP diastolic 60–86; PULSE 53–70; RESP 12–22; TEMP 98.3–99.5; O2SAT 95–100
[2023-09-04] MEDS ORDERED: SODIUM CHLORIDE LOCK 10 ML ONE (11:44)
[2023-09-04] MEDS: LIDOCAINE VISCOUS 2% 15ML UD ONE (12:36)
[2023-09-04] MEDS: diphenhdrAMINE HCL 50 MG/1 ML VL ONE (12:39)
[2023-09-04] MEDS: fentaNYL CITRATE 100 MCG/2 ML VL ONE (12:39)
[2023-09-04] MEDS: MIDAZOLAM HCL 5 MG/ML-1ML VIAL ONE (12:39)
[2023-09-04] MEDS: PANTOPRAZOLE 40 MG TAB PO SCH (17:59)
[2023-09-05 01:00] VITALS: BP 134/89; PULSE 69; RESP 20; TEMP 98.9; O2SAT 95
[2023-09-05 05:00] VITALS: BP 129/78; PULSE 63; RESP 20; TEMP 98.2; O2SAT 96
[2023-09-05 08:00] VITALS: PULSE 64; RESP 18; O2SAT 99
[2023-09-05 09:00] VITALS: BP 145/75; PULSE 64; RESP 18; TEMP 97.9; O2SAT 99
[2023-09-05 13:00] VITALS: BP 130/66; PULSE 69; RESP 18; TEMP 98.2; O2SAT 99
[2023-09-05] MEDS ORDERED: SUCR1TAB31 PO (15:42)
[2023-09-05] MEDS ORDERED: PANT40TA2 PO (15:42)
[2023-09-05 15:46] VITALS: BP 130/66; PULSE 69; RESP 18; TEMP 98.2; O2SAT 99
== END 2023-09-05 16:10 | disposition home or self-care (01) | DRG 241 ==
LOC: EDBD 01:27 → ER 01:27 → OVERFLOW 06:27 → OBSVTOIN 09-03 08:51 → WEST WING 09-03 23:04
PROVIDERS: ADMIT Nurse Practitioner Family; ATTEND Nurse Practitioner Family
PROC: 0DB68ZX Excision of Stomach, Via Natural or Artificial Opening Endoscopic, Diagnostic (ICD-10-PCS; 2023-09-04)
PROC: 0DB98ZX Excision of Duodenum, Via Natural or Artificial Opening Endoscopic, Diagnostic (ICD-10-PCS; principal; 2023-09-04 12:28)
DX: K29.90 Gastroduodenitis, unspecified, without bleeding (principal); D64.9 Anemia, unspecified; K29.70 Gastritis, unspecified, without bleeding; K31.9 Disease of stomach and duodenum, unspecified; E86.0 Dehydration; J45.909 Unspecified asthma, uncomplicated; F12.90 Cannabis use, unspecified, uncomplicated; K21.9 Gastro-esophageal reflux disease without esophagitis; K44.9 Diaphragmatic hernia without obstruction or gangrene; Z87.442 Personal history of urinary calculi; Z88.8 Allergy status to other drugs, medicaments and biological substances; Z79.899 Other long term (current) drug therapy; Z82.49 Family history of ischemic heart disease and other diseases of the circulatory system
CPT/HCPCS: 36415; 43239; 74018; 74177; 76700; 80048; 80053; 82150; 83605; 83690; 85025; 85048; 87040; 87045; 87427; 87493; 96374; 96375; 96376; G0378; J1885; J2250; J2405; J2470; J2543

== ENCOUNTER 2023-09-09 12:46 | Inpatient (IN) | payer MEDICAID ==
[~2023-09-09] VITALS: Ht 177.8 cm; Wt 63.5 kg
[~2023-09-09 12:46] MED LIST changes: -BACDST PO; -RANI300T PO
[2023-09-09 14:39] LABS: Basophils # (auto) 0 10 ^3/uL (0-0.2); Basophils % (auto) 0.4 % (0.0-2.0); Eosinophils # (auto) 0.1 10 ^3/uL (0-0.8); Eosinophils % (auto) 0.8 % (0.0-7.0); Hematocrit 42.9 % (41.0-53.0); Hemoglobin 14.3 g/dL (13.5-17.5); Lymphocytes # (auto) 0.9 10 ^3/uL (0.4-5.4); Lymphocytes % (auto) 8.7 % (10.0-50.0); Mean Corpuscular Hemoglobin 30.9 pg (28.0-32.0); Mean Corpuscular Hgb Conc. 33.3 g/dL (32.0-36.0); Mean Corpuscular Volume 92.6 fL (80.0-100.0); Monocytes # (auto) 0.6 10 ^3/uL (0-1.3); Monocytes % (auto) 5.6 % (0.0-12.0); Neutrophils # (auto) 8.8 10 ^3/uL (1.6-8.6); Neutrophils % (auto) 84.5 % (37.0-80.0); Red Blood Cells 4.64 10^6/uL (4.5-5.90); Red Cell Distribution Width 15.1 % (11.8-14.3); White Blood Cell 10.4 10^3/uL (4.4-10.8)
[2023-09-09] MEDS: FAMOTIDINE (10MG/ML) 2ML VL IV ONE (14:39)
[2023-09-09] MEDS: LORazepam 2MG/ML-1ML VIAL IV ONE (14:39)
[2023-09-09] MEDS: METOCLOPRAMIDE HCL 5MG/ml INJ 2ml VIAL IV ONE (14:39)
[2023-09-09 14:57] LABS: Alanine Aminotransferase 25 U/L (7-40); Albumin 4.3 g/dL (3.2-4.8); Alkaline Phosphatase 102 U/L (46-116); Anion Gap 5 (5-15); Aspartate Aminotransferase 19 U/L (13-40); BUN/Creatinine Ratio 6.3 (10.0-20.0); Bilirubin, Total 0.9 mg/dL (0.2-1.0); Blood Urea Nitrogen 5 mg/dL (9-23); Calcium 9.6 mg/dL (8.7-10.4); Carbon Dioxide 26 mmol/L (20-30); Chloride 110 mmol/L (98-107); Glucose 102 mg/dL (74-106); Lipase 34 U/L (12-53); Potassium 4.2 mmol/L (3.5-5.1); Sodium 141 mmol/L (136-145); Total Protein 7.6 g/dL (5.7-8.2)
[2023-09-09] MEDS: SODIUM CHLORIDE 0.9% 1,000 ML IV SCH (21:16)
[2023-09-09] MEDS: SUCRALFATE 1 GM/10 ML ORAL SUSP PO SCH (22:25)
[2023-09-09] MEDS: PANTOPRAZOLE 40 MG/10 ML VIAL INJ IV SCH (22:25)
[2023-09-10] MEDS: ONDANSETRON HCL 4 MG/2 ML VIAL IV PRN (00:14)
[2023-09-10] MEDS: METOCLOPRAMIDE HCL 5MG/ml INJ 2ml VIAL IV ONE (01:42)
[2023-09-10 06:20] LABS: Alanine Aminotransferase 21 U/L (7-40); Albumin 3.8 g/dL (3.2-4.8); Alkaline Phosphatase 87 U/L (46-116); Anion Gap 6 (5-15); Aspartate Aminotransferase 14 U/L (13-40); BUN/Creatinine Ratio 11.8 (10.0-20.0); Blood Urea Nitrogen 8 mg/dL (9-23); Calcium 9.1 mg/dL (8.7-10.4); Carbon Dioxide 25 mmol/L (20-30); Chloride 108 mmol/L (98-107); Glucose 100 mg/dL (74-106); Potassium 3.5 mmol/L (3.5-5.1); Sodium 139 mmol/L (136-145)
[2023-09-10 06:21] LABS: Bilirubin, Total 1.2 mg/dL (0.2-1.0); Total Protein 6.5 g/dL (5.7-8.2)
[2023-09-10 08:16] VITALS: BP 105/70; PULSE 89; RESP 16; TEMP 98; O2SAT 97
[2023-09-10] MEDS: ACETAMINOPHEN 325 MG TAB PO PRN (10:22)
[2023-09-10 12:00] VITALS: BP 100/66; PULSE 69; RESP 16; TEMP 98.7; O2SAT 97
[2023-09-10] MEDS: MORPHINE SULFATE INJ 2 MG/ml SYRG IV PRN (15:57)
[2023-09-10 16:00] VITALS: BP 128/68; PULSE 68; RESP 18; TEMP 98.9; O2SAT 98
[2023-09-10 20:00] VITALS: RESP 19; O2SAT 97
[2023-09-10 21:00] VITALS: BP_SYST 128; BP_SYST 96; BP_DIAS 55; BP_DIAS 72; PULSE 82; RESP 16; RESP 19; TEMP 98.3; TEMP 99.7; O2SAT 92; O2SAT 97
[2023-09-10] MEDS: traZODone HCL 50 MG TAB PO PRN (22:10)
[2023-09-11] VITALS (7 sets, daily range): BP systolic 98–143; BP diastolic 43–73; PULSE 60–102; RESP 16–20; TEMP 97.4–99.6; O2SAT 91–98
[2023-09-11 06:16] LABS: Alanine Aminotransferase 24 U/L (7-40); Albumin 3.7 g/dL (3.2-4.8); Alkaline Phosphatase 83 U/L (46-116); Chloride 105 mmol/L (98-107)
[2023-09-11 06:17] LABS: Anion Gap 8 (5-15); Aspartate Aminotransferase 15 U/L (13-40); BUN/Creatinine Ratio 9.5 (10.0-20.0); Blood Urea Nitrogen 6 mg/dL (9-23); Carbon Dioxide 23 mmol/L (20-30); Glucose 107 mg/dL (74-106); Potassium 3.4 mmol/L (3.5-5.1); Sodium 136 mmol/L (136-145); Total Protein 6.2 g/dL (5.7-8.2)
[2023-09-11 09:51] LABS: Urine Bacteria FEW /hpf (None Seen); Urine Blood Negative /uL (Negative); Urine Clarity Turbid (Clear); Urine Color Colorless (Yellow); Urine Mucus FEW (None Seen); Urine Protein, UAD Negative (Negative); Urine Specific Gravity 1.017 (1.001-1.035); Urine Urobilinogen 2 mg/dL (Negative); Urine WBC 2 /hpf (0 - 3)
[2023-09-11 10:01] LABS: Amphetamine Screen, Urine Neg (NEGATIVE); Barbiturate Scree,Urine Neg (NEGATIVE); Benzodiazephine Screen, Urine Neg (NEGATIVE); Cocaine Screen, Urine Neg (NEGATIVE)
[2023-09-11 10:02] LABS: Cannabinoid Screen, Urine Pos (NEGATIVE); Opiate Scree,Urine Pos (NEGATIVE); Phencyclidine Screen, Urine Neg (NEGATIVE)
[2023-09-11] MEDS: ONDANSETRON HCL 4 MG/2 ML VIAL IV PRN (13:02)
[2023-09-12] VITALS (7 sets, daily range): BP systolic 118–157; BP diastolic 56–78; PULSE 59–71; RESP 16–20; TEMP 98.2–99.3; O2SAT 94–98
[2023-09-12] MEDS: METOCLOPRAMIDE HCL 5MG/ml INJ 2ml VIAL IV SCH ×2 (11:16→21:40)
[2023-09-12] MEDS: SUCRALFATE 1 GM/10 ML ORAL SUSP PO SCH (11:17)
[2023-09-12] MEDS: KETOROLAC TROMETH 30 MG/ML 1ML VIAL IV PRN (15:06)
[2023-09-13 05:00] VITALS: BP 134/70; PULSE 59; RESP 18; TEMP 99.4; O2SAT 94
[2023-09-13 06:18] LABS: Basophils # (auto) 0 10 ^3/uL (0-0.2); Basophils % (auto) 0.5 % (0.0-2.0); Eosinophils # (auto) 0 10 ^3/uL (0-0.8); Eosinophils % (auto) 0.3 % (0.0-7.0); Hematocrit 36.3 % (41.0-53.0); Hemoglobin 12.5 g/dL (13.5-17.5); Lymphocytes # (auto) 1.2 10 ^3/uL (0.4-5.4); Lymphocytes % (auto) 15.5 % (10.0-50.0); Mean Corpuscular Hemoglobin 30.7 pg (28.0-32.0); Mean Corpuscular Hgb Conc. 34.3 g/dL (32.0-36.0); Mean Corpuscular Volume 89.6 fL (80.0-100.0); Monocytes # (auto) 0.9 10 ^3/uL (0-1.3); Monocytes % (auto) 11.5 % (0.0-12.0); Neutrophils # (auto) 5.7 10 ^3/uL (1.6-8.6); Neutrophils % (auto) 72.2 % (37.0-80.0); Red Blood Cells 4.06 10^6/uL (4.5-5.90); Red Cell Distribution Width 14.4 % (11.8-14.3); White Blood Cell 7.9 10^3/uL (4.4-10.8)
[2023-09-13 06:34] LABS: Alanine Aminotransferase 14 U/L (7-40); Albumin 3.6 g/dL (3.2-4.8); Alkaline Phosphatase 75 U/L (46-116); Anion Gap 8 (5-15); Aspartate Aminotransferase < 8 U/L (13-40); BUN/Creatinine Ratio 11.5 (10.0-20.0); Bilirubin, Total 2.6 mg/dL (0.2-1.0); Blood Urea Nitrogen 9 mg/dL (9-23); CRP High Sensitivity < 0.02 mg/dL (<1.0); Calcium 8.8 mg/dL (8.7-10.4); Carbon Dioxide 24 mmol/L (20-30); Chloride 105 mmol/L (98-107); Glucose 90 mg/dL (74-106); Potassium 3.1 mmol/L (3.5-5.1); Sodium 137 mmol/L (136-145); Total Protein 6.1 g/dL (5.7-8.2)
[2023-09-13 06:53] LABS: Lipase 23 U/L (12-53)
[2023-09-13 09:00] VITALS: BP 143/78; PULSE 75; RESP 16; TEMP 98.8; O2SAT 96
[2023-09-13] MEDS: SOD CHL 0.45% WITH 20MEQ KCL 1,000 ML IV SCH (12:15)
[2023-09-13 13:00] VITALS: BP 130/61; PULSE 74; RESP 12; TEMP 99.4; O2SAT 95
[2023-09-13] MEDS ORDERED: ONDANSETRON HCL 4 MG/2 ML VIAL IV PRN (16:00)
[2023-09-13] MEDS: POTASSIUM CHL 20MEQ/100ML 100 ML IV SCH (16:57)
[2023-09-13 17:00] VITALS: BP 158/83; PULSE 60; RESP 18; TEMP 98.5; O2SAT 95
[2023-09-13 20:00] VITALS: RESP 18
[2023-09-13 21:00] VITALS: BP 132/76; PULSE 59; RESP 19; TEMP 98.6; O2SAT 96
[2023-09-13] MEDS: BISACODYL 10 MG RECT SUPP PR SCH (21:42)
[2023-09-14 05:00] VITALS: BP 135/86; PULSE 54; RESP 19; TEMP 98.7; O2SAT 95
[2023-09-14 08:00] VITALS: RESP 18
[2023-09-14 09:00] VITALS: BP 137/88; PULSE 71; RESP 20; TEMP 98.6; O2SAT 98
[2023-09-14] MEDS: ENOXAPARIN SOD 40 MG/0.4 ML SYRINGE SC SCH (09:29)
== END 2023-09-14 11:00 | disposition left against medical advice (07) | DRG 241 ==
LOC: ER 12:46 → OVERFLOW 20:24 → CENTRAL 09-10 08:00 → OBSVTOIN 09-11 08:26
PROVIDERS: ADMIT Hospitalist; ATTEND Hospitalist
DX: K29.70 Gastritis, unspecified, without bleeding (principal); E86.0 Dehydration; K29.90 Gastroduodenitis, unspecified, without bleeding; K52.9 Noninfective gastroenteritis and colitis, unspecified; J45.909 Unspecified asthma, uncomplicated; K21.9 Gastro-esophageal reflux disease without esophagitis; F12.10 Cannabis abuse, uncomplicated; Z53.29 Procedure and treatment not carried out because of patient's decision for other reasons; Z87.442 Personal history of urinary calculi; Z82.49 Family history of ischemic heart disease and other diseases of the circulatory system; Z82.61 Family history of arthritis
CPT/HCPCS: 36415; 74022; 74176; 80053; 80307; 81001; 82962; 83605; 83690; 83735; 85025; 86141; 87040; G0378; J1885; J2405; J2470; J3480; J3490

== ENCOUNTER 2023-11-22 13:02 | Emergency (ER) | payer MEDICAID ==
[~2023-11-22] VITALS: Ht 177.8 cm; Wt 50.8 kg
[2023-11-22] MEDS ORDERED: LIDO5CRE14 EX (15:30)
[2023-11-22 15:40] VITALS: BP 131/82; PULSE 64; RESP 17; TEMP 99.3; O2SAT 97
== END 2023-11-22 15:52 | disposition home or self-care (01) ==
LOC: ER 13:02
DX: K60.2 Anal fissure, unspecified (principal); K21.9 Gastro-esophageal reflux disease without esophagitis; J45.909 Unspecified asthma, uncomplicated; F15.90 Other stimulant use, unspecified, uncomplicated; Z90.89 Acquired absence of other organs; Z88.8 Allergy status to other drugs, medicaments and biological substances; Z79.899 Other long term (current) drug therapy

== ENCOUNTER 2024-02-08 19:17 | Emergency (ER) | payer MEDICAID ==
[~2024-02-08] VITALS: Ht 182.9 cm; Wt 63.0 kg
[~2024-02-08 19:17] MED LIST changes: +LIDO5CRE14 EX
--- NOTE | 2024-02-08 19:31 | ED.PDOC ---
GI ASSESSMENT HPI Comments HPI: Poor Historian. 28-year-old male brought in by ambulance from home after mother called 911. Patient has been doing fine all day but he started developing bilateral temporal throbbing headache which gave him the urge to vomit. He vomit food content at that time. Patient then later vomit again what he suspects to be blood because his tasted like blood to him. His mother was concerned and called 911. Pre- hospital course vital signs were stable. Patient did not take any medicine at home to help with the symptoms. Initial Vital Signs: Temp : 98.3 F BP: 134/87 HR: 83 RR: 16 SpO2: 98% Past Medcial History: GERD, anxiety, migraine Past Surgical History: Tonsillectomy REVIEW OF SYSTEMS: CONSTITUTIONAL: Denies acute: fever, diaphoresis, chills, HEAD: Denies acute: headache, photophobia Eyes: Denies acute: Double vision, vision loss, eye pain, eye discharge. EARS: Denies acute: tinnitus, hearing loss, ear discharge, ear pain, THROAT: Denies acute: sore throat, swelling, difficulty swallowing , pain with swallowing, change in voice. NECK: Denies acute: neck pain, neck swelling, stiff neck. HEART: Denies acute : chest pain, palpitations, LUNGS: Denies acute: SOB, wheezing, cough, hemoptysis ABDOMEN: Denies acute: abdominal pain, diarrhea, melena , hematochezia SKIN: Denies acute: rash, redness, lesions, itchiness. EXTREMITIES: Denies acute: calf pain, numbness, tingling, weakness, denies pain in extremity. Denies acute: Low back pain. Neuro: Denies acute: focal neurological deficit, motor or sensory focal neurological deficit, tremors, seizure like activity, confusion, dizziness, change in mental status, loss of bowel or bladder function, cauda equina like symptoms. : Denies acute: dysuria, hematuria, flank pain, increase in urinary frequency. PSYCH: Denies acute: hallucination, suicidal ideation, homicidal ideation. PHYSICAL EXAM: General: no acute distress, awake and alert. Head: normocephalic, atraumatic. Neck: supple, trachea is midline, no swelling. Throat: Normal phonation. Eyes:, no erythema, no purulent discharge, no proptosis, no icterus. Heart: regular rate, regular rhythm, no significant murmur appreciated. Lungs: no apparent respiratory distress, Able to speak in full sentences. No wheezing, no rhonchi, no crackles. No stridors Clear to auscultation bilaterally. Abdomen: Generalized mild tender to palpation, non distended, soft, no guarding, no rebound, + bowel sounds. Neuro: Awake, Alert, oriented to name, self, situation, follows commands GCS=15. Speech is normal. Skin: no petechia, no purpura, no cyanosis, non-pale, not jaundice. Lower extremities: --no - Pitting edema no deformity, no focal swelling, no calf TTP. Makes eye contact. moves all four extremities. Face: no apparent facial droop. Chief Complaint: Headache Time Seen by MD: 19:25 Primary Care Provider: Kemar Reviewed Notes: Nurses Notes, Medications, Allergies Allergies: Coded Allergies: Fentanyl (Verified Allergy, Severe, 04/13/19) Home Meds Active Scripts Lidocaine (Anorectal) (Lidocaine 5%) 5 % Cre, 5 % EX DAILY, #30 CRE Prov:JASMINA MANZO 11/22/23 Pantoprazole Sodium Sesquihydr (Protonix) 40 Mg Tab, 40 MG PO BID for 30 Days, #60 TAB Prov:GUNNAR JOHNSON MD 09/05/23 Sucralfate (CARAFATE) 1 Gm Tab, 1 GM PO BIDAC, #120 TAB Prov:GUNNAR JOHNSON MD 09/05/23 Ondansetron Odt 4MG Tab (ZOFRAN PO) 4 Mg Tb, 4 MG PO TID PRN for 4 Days, #12 TAB ODT TAB-DISSOLVE IN MOUTH, THEN SWALLOW Prov:KALPANA MARTINEZ MD 09/01/23 Ondansetron Odt 4MG Tab (ZOFRAN PO) 4 Mg Tb, 4 MG PO DAILY for 7 Days, #7 TAB ODT TAB-DISSOLVE IN MOUTH, THEN SWALLOW Prov:LORIE JENSEN MD 05/13/23 Pantoprazole Sodium Sesquihydr (Pantoprazole Sodium) 40 Mg Tab, 40 MG PO BID, #100 TAB Prov:LUCILA ALMANZAR MD 04/26/17 Reported Medications [Hydrocodone/Acetaminophen] 7.5/325MG No Conflict Check, PO Q4HPRN PRN for MODERATE PAIN, #60 07/24/14 Trazodone Hcl (Trazodone Hcl) 150 Mg Tab, 150 MG PO QHSP PRN for FOR INSOMNIA, #30 07/24/14 Carisoprodol (Carisoprodol) 350 Mg Tab, 350 MG PO TID, #90 07/24/14 Information Source: Patient, Emergency Med Personnel Past Medical History PAST MEDICAL HISTORY: Asthma, GERD, Kidney Stones Surgical History: Tonsillectomy Family History Family History: Reviewed,noncontributory to illness Social History Smoker: Non-Smoker Alcohol: Denies ETOH Use Drugs: Marijuana Lives In: Home X-Ray, Labs, Meds, VS Vital Signs Date Time Temp Pulse Resp B/P (MAP) Pulse Ox O2 Delivery O2 Flow Rate FiO2 02/08/24 21:03 97.8 65 18 128/78 (95) 99 97.8 02/08/24 21:03 65 18 99 Room Air* 0 21 02/08/24 19:17 98.3 83 16 134/87 (103) 98 Lab Test 02/08/24 21:10 02/08/24 21:08 02/08/24 19:57 Range/Units Troponin I High Sensitivity 3 L 3 L </=54 ng/L Influenza Type A Antigen Negative Negative Influenza Type B Antigen Negative Negative SARS-CoV-2 Antigen (Rapid) Negative NEGATIVE White Blood Count 14.2 H 4.4-10.8 10^3/uL Red Blood Count 4.66 4.5-5.90 10^6/uL Hemoglobin 14.2 13.5-17.5 g/dL Hematocrit 43.3 41.0-53.0 % Mean Corpuscular Volume 92.9 80.0-100.0 fL Mean Corpuscular Hemoglobin 30.5 28.0-32.0 pg Mean Corpuscular Hemoglobin Concent 32.9 32.0-36.0 g/dL Red Cell Distribution Width 15.6 H 11.8-14.3 % Platelet Count 299 140-450 10^3/uL Mean Platelet Volume 6.8 L 6.9-10.8 fL Neutrophils (%) (Auto) 82.8 H 37.0-80.0 % Lymphocytes (%) (Auto) 11.5 10.0-50.0 % Monocytes (%) (Auto) 4.9 0.0-12.0 % Eosinophils (%) (Auto) 0.5 0.0-7.0 % Basophils (%) (Auto) 0.3 0.0-2.0 % Neutrophils # (Auto) 11.7 H 1.6-8.6 10 ^3/uL Lymphocytes # (Auto) 1.6 0.4-5.4 10 ^3/uL Monocytes # (Auto) 0.7 0-1.3 10 ^3/uL Eosinophils # (Auto) 0.1 0-0.8 10 ^3/uL Basophils # (Auto) 0 0-0.2 10 ^3/uL Nucleated Red Blood Cells 0.0 % Sodium Level 144 136-145 mmol/L Potassium Level 4.0 3.5-5.1 mmol/L Chloride Level 109 H 98-107 mmol/L Carbon Dioxide Level 28 20-31 mmol/L Anion Gap 7 5-15 Blood Urea Nitrogen 8 L 9-23 mg/dL Creatinine 0.89 0.700-1.30 mg/dL Glomerular Filtration Rate Calc 118 >90 mL/min BUN/Creatinine Ratio 9.0 L 10.0-20.0 Serum Glucose 95 74-106 mg/dL Lactic Acid Level 1.8 0.4-2.0 mmol/L Calcium Level 10.0 8.7-10.4 mg/dL Magnesium Level 2.1 1.6-2.6 mg/dL Total Bilirubin 0.8 0.2-1.0 mg/dL Aspartate Amino Transferase (AST) 10 L 13-40 U/L Alanine Aminotransferase (ALT) 14 7-40 U/L Alkaline Phosphatase 65 46-116 U/L Total Protein 7.8 5.7-8.2 g/dL Albumin 5.0 H 3.2-4.8 g/dL Lipase 36 12-53 U/L Current Medications Medications (Trade) Dose Ordered Sig/Miller Route Start Time Stop Time Status Last Admin Sodium Chloride 1,000 ml @ 1,000 mls/hr Q1H ONCE IV 02/08/24 19:30 02/08/24 20:29 DC 02/08/24 21:00 Ondansetron HCl (Zofran) 8 mg ONCE ONCE IV 02/08/24 19:30 02/08/24 19:31 DC 02/08/24 21:00 Pantoprazole Sodium (Protonix) 40 mg ONCE ONCE IV 02/08/24 19:30 02/08/24 19:31 DC 02/08/24 21:00 Acetaminophen/ Hydrocodone Bitart ([place] 5/325MG Tab) 1 tab ONCE ONCE PO 02/08/24 21:30 02/08/24 21:31 DC 02/08/24 21:35 [place] [address] Ph: [phone] DIAGNOSTIC IMAGING Diagnostic Imaging Report : [id number] Signed PATIENT: NAEL SILVA ACCT: [id number] UNIT: [id number] : 1995 LOC: ER ROOM / BED: / AGE / SEX: 28 / M ADM STATUS: REG ER SERVICE 25 ORDERING PHYSICIAN: PAULA BARNEY DO PROCEDURE(s): ABPL - CT AB PEL WO CON-NO ORAL OR IV REASON: n/v ORDER NUMBER(s): [id number], ACCESSION NUMBER(s): [id number] Exam: CT CT AB PEL WO CON-NO ORAL OR IV History: n/v Comparison Study: CT CT AB PEL WO CON-NO ORAL OR IV on DOS: 09/09/23, CT CT AB PEL WITH IV CON ONLY on DOS: 09/01/23, CT ABD PELVIS WO CONTRAST on DOS: 10/21/20 Technique: Multidetector spiral CT of the abdomen was performed from lung bases to pubic symphysis. Imaging was performed without IV contrast. Axial, coronal and sagittal multiplanar reformats were obtained from the axial data set by the technologist. Radiation Dose : 1. Abdomen/Pelvis: CTDIvol 5.8 mGy, DLP 357 mGy*cm. Findings: Evaluation of solid organs is limited due to lack of intravenous contrast use. Lung Bases: No acute or significant lung base finding. Normal heart size. No pleural or pericardial effusion. Liver: The liver is normal in size. No focal lesions. Gallbladder and Biliary Tree: Unremarkable Spleen: Unremarkable Pancreas: The pancreas is grossly normal in appearance. Adrenal Glands: Unremarkable Kidneys: Kidneys are grossly normal without calculi or hydronephrosis. Bladder: Grossly unremarkable for degree of distention. Bowel: The stomach is grossly normal in appearance. Mild concentric wall thickening of the descending colon may reflect mild infectious/ inflammatory colitis Normal appendix is visualized in the right lower quadrant without findings of appendicitis. Ascites: Absent Lymphadenopathy: No mesenteric, retroperitoneal or periportal lymphadenopathy. Abdominal Wall and Mesentery: Unremarkable. Vasculature: The visualized abdominal aorta is normal in size and caliber. Evaluation of abdominal and pelvic vessels is limited due to lack of intravenous contrast. Pelvic Organs: Unremarkable Musculoskeletal: No aggressive focal bony lesions, acute fractures or dislocation. IMPRESSION: 1. Mild concentric wall thickening of the descending colon may reflect mild infectious/ inflammatory colitis Radiation optimization: All CT scans at this facility use at least one of these dose optimization techniques: automated exposure control mA and/or kV adjustment per patient size (includes targeted exams where dose is matched to clinical indication) or iterative reconstruction. ATED BY: KENZIE SAUCEDA MD DICTATED DATE/TIME: 02/08/242022 SIGNED BY: KENZIE SAUCEDA MD SIGNED DATE/TIME: 02/08/242022 CC: [place] [address] Ph: [phone] DIAGNOSTIC IMAGING Diagnostic Imaging Report : [id number] Signed PATIENT: NAEL SILVA ACCT: [id number] UNIT: [id number] : 1995 LOC: ER ROOM / BED: / AGE / SEX: 28 / M ADM STATUS: REG ER SERVICE 25 ORDERING PHYSICIAN: PAULA BARNEY DO PROCEDURE(s): CXRP - CHEST PORTABLE REASON: n/v ORDER NUMBER(s): [id number], ACCESSION NUMBER(s): [id number] EXAMINATION: AP portable chest radiograph CLINICAL HISTORY: n/v COMPARISON: CHEST PORTABLE on DOS: 08/27/19 FINDINGS: No dominant consolidation. The costophrenic angles appear clear. No sizable pleural effusions or pneumothorax identified. The cardiomediastinal silhouette appears within normal limits given technique. IMPRESSION: No acute cardiopulmonary findings as visualized. ATED BY: BIMAL PRIETO MD DICTATED DATE/TIME: 02/08/242018 SIGNED BY: BIMAL PRIETO MD SIGNED DATE/TIME: 02/08/242018 CC: Time of 1ST Reevaluation: 20:40 (Patient stated that he is awaiting a colonoscopy because they found something in his colon which is consistent with our CT scan findings today. Patient denies any diarrhea.) Reevaluation 1ST: Improved Time of 2ND Reevaluation: 21:17 (This time patient stated that he is not having any GI symptoms but he is having migraines that is causing him to have nausea and vomiting. He is requesting something for pain for his migraines.) Patient Education/Counseling: Diagnosis, Treatment Family Education/Counseling: No Family Present Comments pt eloped Departure 1 Departure Time of Disposition: 21:29 Impression: Primary Impression: Migraine Additional Impressions: Nausea & vomiting Abnormal finding on CT scan Eloped from emergency department Disposition: 07 LEFT AWOL/ELOPED Condition: Stable Additional Instructions: pt eloped from ED without any discharge instructions or urinalysis provided. Below is a sat of instructions in case he returns to receive them later and get a copy of his CT scan report. Additional discharge instructions: You MUST follow-up with your primary care/family doctor in 1 to 2 days. If you are unable to see your primary care/family doctor, please return to our emergency room for re-assessment and re-evaluation in 1 to 2 days. Return to the emergency room here in our facility or to the nearest ER [facility] if your symptoms change or worsen. CONSULTATIONS: you MUST Follow-up for consultation as soon as possible with: [facility] in 1-2 days. Please call for appointment. You MUST call the consultants office yourself to make an appointment. You may need to arrange that through your insurance and/or your primary/family doctor. If you are unable to see the procurement consultant in 1 to 2 days, you must return to our emergency room (or any other ER of your choice) for re-assessment and re- evaluation. Avoid fatty greasy spicy food. Avoid caffeinated products. Avoid NSAIDs. Adequate fluid hydration. Below is a copy of your radiological report for follow up: [address] [address] Ph: [phone] DIAGNOSTIC IMAGING Diagnostic Imaging Report : [id number] Signed PATIENT: RICARDONAEL J ACCT: [id number] UNIT: [id number] : 1995 LOC: ER ROOM / BED: / AGE / SEX: 28 / M ADM STATUS: REG ER SERVICE 25 ORDERING PHYSICIAN: PAULA BARNEY DO PROCEDURE(s): ABPL - CT AB PEL WO CON-NO ORAL OR IV REASON: n/v ORDER NUMBER(s): [id number], ACCESSION NUMBER(s): [id number] Exam: CT CT AB PEL WO CON-NO ORAL OR IV History: n/v Comparison Study: CT CT AB PEL WO CON-NO ORAL OR IV on DOS: 09/09/23, CT CT AB PEL WITH IV CON ONLY on DOS: 09/01/23, CT ABD PELVIS WO CONTRAST on DOS: 10/21/20 Technique: Multidetector spiral CT of the abdomen was performed from lung bases to pubic symphysis. Imaging was performed without IV contrast. Axial, coronal and sagittal multiplanar reformats were obtained from the axial data set by the technologist. Radiation Dose : 1. Abdomen/Pelvis: CTDIvol 5.8 mGy, DLP 357 mGy*cm. Findings: Evaluation of solid organs is limited due to lack of intravenous contrast use. Lung Bases: No acute or significant lung base finding. Normal heart size. No pleural or pericardial effusion. Liver: The liver is normal in size. No focal lesions. Gallbladder and Biliary Tree: Unremarkable Spleen: Unremarkable Pancreas: The pancreas is grossly normal in appearance. Adrenal Glands: Unremarkable Kidneys: Kidneys are grossly normal without calculi or hydronephrosis. Bladder: Grossly unremarkable for degree of distention. Bowel: The stomach is grossly normal in appearance. Mild concentric wall thickening of the descending colon may reflect mild infectious/ inflammatory colitis Normal appendix is visualized in the right lower quadrant without findings of appendicitis. Ascites: Absent Lymphadenopathy: No mesenteric, retroperitoneal or periportal lymphadenopathy. Abdominal Wall and Mesentery: Unremarkable. Vasculature: The visualized abdominal aorta is normal in size and caliber. Evaluation of abdominal and pelvic vessels is limited due to lack of intravenous contrast. Pelvic Organs: Unremarkable Musculoskeletal: No aggressive focal bony lesions, acute fractures or dislocation. IMPRESSION: 1. Mild concentric wall thickening of the descending colon may reflect mild infectious/ inflammatory colitis Radiation optimization: All CT scans at this facility use at least one of these dose optimization techniques: automated exposure control mA and/or kV adjustment per patient size (includes targeted exams where dose is matched to clinical indication) or iterative reconstruction. ATED BY: KENZIE SAUCEDA MD DICTATED DATE/TIME: 02/08/242022 SIGNED BY: KENZIE SAUCEDA MD SIGNED DATE/TIME: 02/08/242022 CC: Discharged With: Self I personally scribed for PAULA BARNEY DO ([email or web address]) on 02/08/24 at 19:38. Electronically submitted by Wendie Jade ([email or web address]). I personally scribed for PAULA BARNEY DO ([email or web address]) on 02/08/24 at 19:40. Electronically submitted by Wendie Jade ([email or web address]). I personally scribed for PAULA BARNEY DO ([email or web address]) on 02/08/24 at 19:41. Electronically submitted by Wendie Jade ([email or web address]). I personally scribed for PAULA BARNEY DO ([email or web address]) on 02/08/24 at 20:10. Electronically submitted by Wendie Jade ([email or web address]). I personally scribed for PAULA BARNEY DO ([email or web address]) on 02/08/24 at 20:39. Electronically submitted by Wendie Jade ([email or web address]). I personally scribed for PAULA BARNEY DO ([email or web address]) on 02/08/24 at 20:57. Yi ctronically submitted by Wendie Jade ([email or web address]). PAULA BARNEY DO Feb 08, 2024 19:31
[2024-02-08 20:09] LABS: Basophils # (auto) 0 10 ^3/uL (0-0.2); Basophils % (auto) 0.3 % (0.0-2.0); Eosinophils # (auto) 0.1 10 ^3/uL (0-0.8); Eosinophils % (auto) 0.5 % (0.0-7.0); Hematocrit 43.3 % (41.0-53.0); Hemoglobin 14.2 g/dL (13.5-17.5); Lymphocytes # (auto) 1.6 10 ^3/uL (0.4-5.4); Lymphocytes % (auto) 11.5 % (10.0-50.0); Mean Corpuscular Hemoglobin 30.5 pg (28.0-32.0); Mean Corpuscular Hgb Conc. 32.9 g/dL (32.0-36.0); Mean Corpuscular Volume 92.9 fL (80.0-100.0); Monocytes # (auto) 0.7 10 ^3/uL (0-1.3); Monocytes % (auto) 4.9 % (0.0-12.0); Neutrophils # (auto) 11.7 10 ^3/uL (1.6-8.6); Neutrophils % (auto) 82.8 % (37.0-80.0); Platelet Count (auto) 299 10^3/uL (140-450); Red Blood Cells 4.66 10^6/uL (4.5-5.90); Red Cell Distribution Width 15.6 % (11.8-14.3); White Blood Cell 14.2 10^3/uL (4.4-10.8)
--- NOTE | 2024-02-08 20:22 | DVH ---
EXAMINATION: AP portable chest radiograph CLINICAL HISTORY: n/v COMPARISON: CHEST PORTABLE on DOS: 08/27/19 FINDINGS: No dominant consolidation. The costophrenic angles appear clear. No sizable pleural effusions or pne umothorax identified. The cardiomediastinal silhouette appears within normal limits given technique. IMPRESSION: No acute cardiopulmonary findings as visualized.
--- NOTE | 2024-02-08 20:26 | DVH ---
Exam: CT CT AB PEL WO CON-NO ORAL OR IV History: n/v Comparison Study: CT CT AB PEL WO CON-NO ORAL OR IV on DOS: 09/09/23, CT CT AB PEL WITH IV CON ONLY o n DOS: 09/01/23, CT ABD PELVIS WO CONTRAST on DOS: 10/21/20 Technique: Multidetector spiral CT of the abdomen was performed from lung bases to pubic symphysis. Imaging was performed without IV contrast. Axial, coronal and sagittal multiplanar reformats were ob tained from the axial data set by the technologist. Radiation Dose : 1. Abdomen/Pelvis: CTDIvol 5.8 mGy, DLP 357 mGy*cm. Findings: Evaluation of solid organs is limited due to lack of intravenous contrast use. Lung Bases: No acute or significant lung base finding. Normal heart size. No pleural or pericardial effusion. Liver: The liver is normal in size. No focal lesions. Gallbladder and Biliary Tree: Unremarkable Spleen: Unremarkable Pancreas: The pancreas is grossly normal in appearance. Adrenal Glands: Unremarkable Kidneys: Kidneys are grossly normal without calculi or hydronephrosis. Bladder: Grossly unremarkable for degree of distention. Bowel: The stomach is grossly normal in appearance. Mild concentric wall thickening of the descending colon may reflect mild infectious/ inflammatory colitis Normal appendix is visualized in the right lower quadrant without findings of appendicitis. Ascites: Absent Lymphadenopathy: No mesenteric, retroperitoneal or periportal lymphadenopathy. Abdominal Wall and Mesentery: Unremarkable. Vasculature: The visualized abdominal aorta is normal in size and caliber. Evaluation of abdominal a nd pelvic vessels is limited due to lack of intravenous contrast. Pelvic Organs: Unremarkable Musculoskeletal: No aggressive focal bony lesions, acute fractures or dislocation. IMPRESSION: 1. Mild concentric wall thickening of the descending colon may reflect mild infectious/ inflammatory colitis Radiation optimization: All CT scans at this facility use at least one of these dose optimization aga hniques: automated exposure control mA and/or kV adjustment per patient size (includes targeted exam s where dose is matched to clinical indication) or iterative reconstruction.
[2024-02-08 20:30] LABS: Alanine Aminotransferase 14 U/L (7-40); Alkaline Phosphatase 65 U/L (46-116); Anion Gap 7 (5-15); Carbon Dioxide 28 mmol/L (20-31); Glucose 95 mg/dL (74-106); Lipase 36 U/L (12-53); Magnesium 2.1 mg/dL (1.6-2.6); Sodium 144 mmol/L (136-145)
[2024-02-08 20:31] LABS: Bilirubin, Total 0.8 mg/dL (0.2-1.0); Total Protein 7.8 g/dL (5.7-8.2)
[2024-02-08] MEDS: PANTOPRAZOLE 40 MG/10 ML VIAL INJ IV ONE (21:00)
[2024-02-08] MEDS: ONDANSETRON HCL 4 MG/2 ML VIAL IV ONE (21:00)
[2024-02-08] MEDS: SODIUM CHLORIDE 0.9% 1,000 ML IV ONE (21:00)
[2024-02-08 21:01] LABS: Aspartate Aminotransferase 10 U/L (13-40); Blood Urea Nitrogen 8 mg/dL (9-23); Chloride 109 mmol/L (98-107)
[2024-02-08] MEDS: LIDOCAINE VISCOUS 2% 15ML UD PO ONE (21:01)
[2024-02-08 21:03] VITALS: BP 128/78; PULSE 65; RESP 18; TEMP 97.8; O2SAT 99
[2024-02-08] MEDS: HYDROcodone-ACET 5/325MG TAB PO ONE (21:35)
[2024-02-08 21:36] LABS: COVID19 ANTIGEN SOFIA FIA NEGATIVE (NEGATIVE); Rapid Influenza A Negative (Negative); Rapid Influenza B Negative (Negative)
== END 2024-02-08 21:47 | disposition left against medical advice (07) ==
LOC: EDBD 19:17 → EDUNIT# 19:17 → ER 19:17
DX: G43.909 Migraine, unspecified, not intractable, without status migrainosus (principal); F41.9 Anxiety disorder, unspecified; J45.909 Unspecified asthma, uncomplicated; K21.9 Gastro-esophageal reflux disease without esophagitis; R93.89 Abnormal findings on diagnostic imaging of other specified body structures; Z88.5 Allergy status to narcotic agent; Z90.89 Acquired absence of other organs; Z20.822 Contact with and (suspected) exposure to COVID-19; Z79.899 Other long term (current) drug therapy
CPT/HCPCS: 36415; 71045; 74176; 80053; 83605; 83690; 83735; 84484; 85025; 87426; 87804; 96361; 96374; 96375; 99285; J2405; J2470; J7030

== ENCOUNTER 2024-03-25 09:08 | Emergency (ER) | payer MEDICAID ==
[~2024-03-25] VITALS: Ht 177.8 cm; Wt 65.3 kg
--- NOTE | 2024-03-25 09:44 | ED.PDOC ---
History of present illness HPI Comments 28 y/o M, with PMHX of urolithiasis presents to the ED for CC of flank pain. Patient states, that he has been experiencing bilateral lower midback pain x3 days; with associated symptoms of nausea and vomiting. Patient relays, dysuria upon urination. Patient smokes marijuana, denies tobacco usage, or ETOH con sumption. Patient denies hematuria, penile discharge, testicle pain, or testicular swelling. No other symptoms or modifying factors at this time. Chief Complaint: Flank Pain Time Seen by MD: 09:20 Primary Care Provider: Kemar History of present illness: Nurses Notes, Medications, Allergies Allergies: Coded Allergies: Fentanyl (Verified Allergy, Severe, 04/13/19) Home Meds Active Scripts Lidocaine (Anorectal) (Lidocaine 5%) 5 % Cre, 5 % EX DAILY, #30 CRE Prov:JASMINA MANZO 11/22/23 Pantoprazole Sodium Sesquihydr (Protonix) 40 Mg Tab, 40 MG PO BID for 30 Days, #60 TAB Prov:GUNNAR JOHNSON MD 09/05/23 Sucralfate (CARAFATE) 1 Gm Tab, 1 GM PO BIDAC, #120 TAB Prov:GUNNAR JOHNSON MD 09/05/23 Ondansetron Odt 4MG Tab (ZOFRAN PO) 4 Mg Tb, 4 MG PO TID PRN for 4 Days, #12 TAB ODT TAB-DISSOLVE IN MOUTH, THEN SWALLOW Prov:KALPANA MARTINEZ MD 09/01/23 Ondansetron Odt 4MG Tab (ZOFRAN PO) 4 Mg Tb, 4 MG PO DAILY for 7 Days, #7 TAB ODT TAB-DISSOLVE IN MOUTH, THEN SWALLOW Prov:LORIE JENSEN MD 05/13/23 Pantoprazole Sodium Sesquihydr (Pantoprazole Sodium) 40 Mg Tab, 40 MG PO BID, #100 TAB Prov:LUCILA ALMANZAR MD 04/26/17 Reported Medications [Hydrocodone/Acetaminophen] 7.5/325MG No Conflict Check, PO Q4HPRN PRN for MODERATE PAIN, #60 07/24/14 Trazodone Hcl (Trazodone Hcl) 150 Mg Tab, 150 MG PO QHSP PRN for FOR INSOMNIA, #30 07/24/14 Carisoprodol (Carisoprodol) 350 Mg Tab, 350 MG PO TID, #90 07/24/14 Information Source: Patient Mode of Arrival: Ambulatory Timing: Days Duration: Since onset Prehospital treatment: None [place]: None History of: None Associated signs and symptoms: Nausea, Vomiting Past Medical History PAST MEDICAL HISTORY: Asthma, GERD, Kidney Stones Surgical History: Tonsillectomy Family History Family History: Reviewed,noncontributory to illness Social History Smoker: Non-Smoker Alcohol: Denies ETOH Use Drugs: Marijuana Lives In: Home Constitutional: denies: chills, diaphoresis, fatigue, fever, malaise, sweats, weakness, others EENTM: denies: blurred vision, double vision, ear bleeding, ear discharge, ear drainage, ear pain, ear ringing, eye pain, eye redness, hearing loss, mouth pain, mouth swelling, nasal discharge, nose bleeding, nose congestion, nose pain, photophobia, tearing, throat pain, throat swelling, voice changes, others Respiratory: denies: cough, hemoptysis, orthopnea, SOB at rest, shortness of breath, SOB with excertion, stridor, wheezing, others Cardiovascular: denies: chest pain, dizzy spells, diaphoresis, Dyspnea on exertion, edema, irregular heart beat, left arm pain, lightheadedness, pal pitations, PND, syncope, others Gastrointestinal: reports: nausea, vomiting; denies: abdomen distended, abdominal pain, blood streaked bowels, constipated, diarrhea, dysphagia, difficulty swallowing, hematemesis, melena, poor appetite, poor fluid intake, rectal bleeding, rectal pain, others Genitourinary: reports: dysuria, flank pain; denies: burning, frequency, hematuria, incontinence, penile discharge, penile sore, pain, testicle pain, testicle swelling, urgency, others Neurological: denies: dizziness, fainting, headache, left sided numbness, left sided weakness, numbness, paresthesia, pre-existing deficit, right sided numbness, right sided weakness, seizure, speech problems, tingling, tremors, weakness, others Musculoskeletal: reports: back pain; denies: gout, joint pain, joint swelling, muscle pain, muscle stiffness, neck pain, others Integumetry: denies: bruises, change in color, change in hair/nails, dryness, laceration, lesions, lumps, rash, wounds, others Allergic/Immunocompromised: denies: Difficulty Healing, Frequent Infections, Hives, Itching, others Hematologic/Lymphatic: denies: anemia, blood clots, easy bleeding, easy bruising, swollen glands, others Endocrine: denies: excessive hunger, excessive sweating, excessive thirst, excessive urination, flushing, intolerance to cold, intolerance to heat, unexplained weight gain, unexplained weight loss, others Psychiatric: denies: anxiety, bipolar disorder, depression, hopeless, panic disorder, schizophrenia, sleepless, suicidal, others All Other Systems: Reviewed and Negative Physical Exam General Appearance: Moderate Distress HEENT: Normal ENT Inspection, Pharynx Normal, TMs Normal Neck: Full Range of Motion, Non-Tender, Normal, Normal Inspection Respiratory: Chest Non-Tender, Lungs Clear, No Accessory Muscle Use, No Respiratory Distress, Normal Breath Sounds Cardiovascular: No Edema, No JVD, No Murmur, No Gallop, Normal Peripheral Pulses, Regular Rate/Rhythm Breast Exam: Deferred Gastrointestinal: No Organomegaly, Non Tender, No Pulsatile Mass, Normal Bowel Sounds, Soft Genitalia: Deferred Pelvic: Deferred Rectal: Deferred Extremities: No calf tenderness, Normal capillary refill, Normal inspection, Normal range of motion, Non-tender, No pedal edema Musculoskeletal : Apperance: Normal Neurologic: Alert, lieutenant general II-XII nml as Tested, No Motor Deficits, Normal Affect, Normal Mood, No Sensory Deficits Cerebellar Function: Normal Reflexes: Normal Skin: Dry, Normal Color, Warm Peripheral Pulses: 3+ Radial (R), 3+ Radial (L) Lymphatic: No Adenopathy Was a procedure done? Was a procedure done?: No Differential Diagnosis (DM) Differential Diagnosis: Cholecystitis, Dehydration, Pyelonephritis, UTI X-Ray, Labs, Meds, VS Vital Signs Date Time Temp Pulse Resp B/P (MAP) Pulse Ox O2 Delivery O2 Flow Rate FiO2 03/25/24 09:48 99.3 78 20 111/49 (69) 95 Lab Test 03/25/24 09:40 Range/Units Urine Color Light-yellow Yellow Urine Clarity Clear Clear Urine pH 8.0 5.0-9.0 Urine Specific [place] 1.019 1.001-1.035 Urine Protein Negative Negative Urine Ketones Negative Negative Urine Blood Negative Negative /uL Urine Nitrite Negative Negative Urine Bilirubin Negative Negative Urine Urobilinogen Normal Negative mg/dL Urine Leukocyte Esterase Negative Negative /uL Urine RBC 2 0 - 3 /hpf Urine Microscopic WBC 1 0-3 /HPF Urine Squamous Epithelial Cells None seen <5 /hpf Urine Bacteria None seen None Seen /hpf Urine Mucus Few None Seen Urine Glucose Normal Normal mg/dL Patient alert. No sign of distress. Physical examination pristine. Vitals stable. Answering all questions. Ambulating. Good muscle strength. Urinalysis within normal limits. Was told to drink plenty of fluids. Was given prescription of Motrin. Explained to the patient. Was told to follow up with his primary care physician. Was told to come back if there is any problem. Time of 1ST Reevaluation: 09:50 Reevaluation 1ST: Improved Patient Education/Counseling: Diagnosis, Treatment Family Education/Counseling: No Family Present Additional Information I reviewed the following notes from patient's past medical encounters: 02/08/24 DX: MIGRAINE, 11/22/23 DX: ANAL FISSURE The following tests were ordered, and results were reviewed by me: ZIA I discussed treatment and results with medical personnel and: PATIENT Departure 1 Departure Time of Disposition: 12:32 Impression: Primary Impression: Musculoskeletal pain Additional Impression: acute LS strain Disposition: 01 HOME / SELF CARE / HOMELESS Condition: Good e-Prescriptions Ibuprofen Micronized (MOTRIN TABLET) 600 Mg Tb 600 MG PO TID PRN for 3 Days, #9 TAB *Black box warning-NSAIDS can increase risk of MT & hypertension, GI irritation, ulceration, bleed, perferation. Do not use post cardiac surgery. Use short duration/lowest effective dose. Prov: LORIE JENSEN MD 03/25/24 Discharged With: Self Critical Care Note Critical Care Time?: No Stability Stability form required: No Heart Score Heart Score: Heart Score Response (Comments) Value History N/A 0 EKG N/A 0 Age N/A 0 Risk Factors N/A 0 Troponin N/A 0 Total 0 I personally scribed for LORIE JENSEN MD ([email or web address]) on 03/25/24 at 09:44. Electronically submitted by Марина Dubon ([email or web address]). I personally scribed for LORIE JENSEN MD ([email or web address]) on 03/25/24 at 10:17. Electronically submitted by Марина Dubon ([email or web address]). LORIE JENSEN MD Mar 25, 2024 09:44
[2024-03-25 09:49] LABS: Urine Bacteria None Seen /hpf (None Seen)
[2024-03-25 10:11] LABS: Urine Blood Negative /uL (Negative); Urine Clarity Clear (Clear); Urine Color Light-Yellow (Yellow); Urine Mucus FEW (None Seen); Urine Protein, UAD Negative (Negative); Urine Specific Gravity 1.019 (1.001-1.035); Urine Squamous Epithelial Cell None Seen /hpf (<5); Urine Urobilinogen Normal (Negative); Urine WBC 1 /HPF (0-3)
[2024-03-25] MEDS ORDERED: IBU600T PO (12:33)
[2024-03-25 12:49] VITALS: BP 139/79; PULSE 67; RESP 16; TEMP 98.9; O2SAT 99
== END 2024-03-25 12:50 | disposition home or self-care (01) ==
LOC: ER 09:08
DX: S39.012A Strain of muscle, fascia and tendon of lower back, initial encounter (principal); R30.0 Dysuria; R11.2 Nausea with vomiting, unspecified; J45.909 Unspecified asthma, uncomplicated; K21.9 Gastro-esophageal reflux disease without esophagitis; Z79.899 Other long term (current) drug therapy; Z87.442 Personal history of urinary calculi; Z90.89 Acquired absence of other organs; Z88.5 Allergy status to narcotic agent; X58.XXXA Exposure to other specified factors, initial encounter; Y93.89 Activity, other specified; Y92.89 Other specified places as the place of occurrence of the external cause; Y99.8 Other external cause status
CPT/HCPCS: 81001

== ENCOUNTER 2024-04-04 08:31 | Emergency (ER) | payer MEDICAID ==
[~2024-04-04] VITALS: Ht 180.3 cm; Wt 64.4 kg
[~2024-04-04 08:31] MED LIST changes: +IBU600T PO
[2024-04-04 09:07] VITALS: BP 156/85; PULSE 75; RESP 17; TEMP 97.9; O2SAT 98
--- NOTE | 2024-04-04 09:30 | ED.PDOC ---
History of Present Illness HPI Comments A 28 YEAR OLD MALE PRESENTS TO THE ED WITH COMPLAINT OF NOSE PAIN S/P FALL AND N/V. PATIENT STATES HE HAS A HISTORY OF GASTRITIS AND CANNABINOID HYPEREMESIS SYNDROME AND HAS BEEN EXPERIENCING NAUSEA AND VOMITING OFF AND ON FOR THE PAST 1 WEEK. PATIENT REPORTS HE WAS IN THE SHOWER 2 DAYS AGO AND HE ACCIDENTALLY SLIPPED AND FELL AND HIT HIS NOSE ON THE WALL. PATIENT REPORTS HE IS NOW EXPERIENCING NOSE PAIN AND IS CONCERNED HE MAY BE DEHYDRATED DUE TO HIS NAUSEA AND VOMITING. PATIENT NOTES THAT [place] [facility] [place] NAUSEA AND VOMITING WHERE HE RECEIVED IV TREATMENT AND HAD LABS DONE ALL OF WHICH WAS NORMAL. PATIENT DENIES HEAD INJURY, NECK INJURY, LOC, FEVER, CHILLS, SHORTNESS OF BREATH, CHEST PAIN, ABDOMINAL PAIN, HEADACHE, OR OTHER COMPLAINTS. NO OTHER SYMPTOMS OR MODIFYING FACTORS AT THIS TIME. PATIENT IS ALERT, ORIENTED X 4, AND HAS STEADY GAIT. Chief Complaint: Nausea/Vomiting Time Seen by MD: 08:46 Primary Care Provider: charlie Stephen Notes: Nurses Notes, Medications, Allergies Allergies: Coded Allergies: Fentanyl (Verified Allergy, Severe, 04/13/19) Home Meds Active Scripts Metoclopramide Hcl (Reglan) 10 Mg Tab, 10 MG PO BID, #30 TAB Prov:JASMINA MANZO 04/04/24 Acetaminophen (Tylenol Extra Strength Fo) 500 Mg Tab, 1000 MG PO BID, #40 TAB Prov:JASMINA MANZO 04/04/24 Cephalexin Monohydrate (Cephalexin) 500 Mg Cap, 1 CAP PO QID, #40 CAP Prov:JASMINA MANZO 04/04/24 Ibuprofen Micronized (MOTRIN TABLET) 600 Mg Tb, 600 MG PO TID PRN for 3 Days, #9 TAB *Black box warning-NSAIDS can increase risk of MD & hypertension, GI irritation, ulceration, bleed, perferation. Do not use post cardiac surgery. Use short duration/lowest effective dose. Prov:LORIE JENSEN MD 03/25/24 Lidocaine (Anorectal) (Lidocaine 5%) 5 % Cre, 5 % EX DAILY, #30 CRE Prov:JASMINA MANZO 11/22/23 Pantoprazole Sodium Sesquihydr (Protonix) 40 Mg Tab, 40 MG PO BID for 30 Days, #60 TAB Prov:GUNNAR JOHNSON MD 09/05/23 Sucralfate (CARAFATE) 1 Gm Tab, 1 GM PO BIDAC, #120 TAB Prov:GUNNAR JOHNSON MD 09/05/23 Ondansetron Odt 4MG Tab (ZOFRAN PO) 4 Mg Tb, 4 MG PO TID PRN for 4 Days, #12 TAB ODT TAB-DISSOLVE IN MOUTH, THEN SWALLOW Prov:KALPANA MARTINEZ MD 09/01/23 Ondansetron Odt 4MG Tab (ZOFRAN PO) 4 Mg Tb, 4 MG PO DAILY for 7 Days, #7 TAB ODT TAB-DISSOLVE IN MOUTH, THEN SWALLOW Prov:LORIE JENSEN MD 05/13/23 Pantoprazole Sodium Sesquihydr (Pantoprazole Sodium) 40 Mg Tab, 40 MG PO BID, #100 TAB Prov:LUCILA ALMANZAR MD 04/26/17 Reported Medications [Hydrocodone/Acetaminophen] 7.5/325MG No Conflict Check, PO Q4HPRN PRN for MODERATE PAIN, #60 07/24/14 Trazodone Hcl (Trazodone Hcl) 150 Mg Tab, 150 MG PO QHSP PRN for FOR INSOMNIA, #30 07/24/14 Carisoprodol (Carisoprodol) 350 Mg Tab, 350 MG PO TID, #90 07/24/14 Information Source: Patient Mode of Arrival: Ambulatory Severity: Moderate Timing: Days Duration: Since onset, Days Prehospital treatment: None Medication Refill: For: Other (NOSE PAIN, NAUSEA, AND VOMITING) Past Medical History PAST MEDICAL HISTORY: Asthma, GERD, Kidney Stones Past Medical History (Other): CANNABINOID HYPEREMESIS SYNDROME Surgical History: Tonsillectomy Family History Family History: Reviewed,noncontributory to illness Social History Smoker: Non-Smoker Alcohol: Denies ETOH Use Drugs: Marijuana Lives In: Home Constitutional: denies: chills, diaphoresis, fatigue, fever, malaise, sweats, weakness, others EENTM: reports: nose pain; denies: blurred vision, double vision, ear bleeding, ear discharge, ear drainage, ear pain, ear ringing, eye pain, eye redness, hearing loss, mouth pain, mouth swelling, nasal discharge, nose bleeding, nose congestion, photophobia, tearing, throat pain, throat swelling, voice changes, others Respiratory: denies: cough, hemoptysis, orthopnea, SOB at rest, shortness of breath, SOB with excertion, stridor, wheezing, others Cardiovascular: denies: chest pain, dizzy spells, diaphoresis, Dyspnea on exertion, edema, irregular heart beat, left arm pain, lightheadedness, palpitations, PND, syncope, others Gastrointestinal: reports: nausea, vomiting; denies: abdomen distended, abdominal pain, blood streaked bowels, constipated, diarrhea, dysphagia, difficulty swallowing, hematemesis, melena, poor appetite, poor fluid intake, rectal bleeding, rectal pain, others Genitourinary: denies: burning, dysuria, flank pain, frequency, hematuria, incontinence, penile discharge, penile sore, pain, testicle pain, testicle swelling, urgency, others Neurological: denies: dizziness, fainting, headache, left sided numbness, left sided weakness, numbness, paresthesia, pre-existing deficit, right sided numbness, right sided weakness, seizure, speech problems, tingling, tremors, weakness, others Musculoskeletal: denies: back pain, gout, joint pain, joint swelling, muscle pain, muscle stiffness, neck pain, others Integumetry: reports: bruises (NOSE ); denies: change in color, change in hair/nails, dryness, laceration, lesions, lumps, rash, wounds, others Allergic/Immunocompromised: denies: Difficulty Healing, Frequent Infections, Hives, Itching, others Hematologic/Lymphatic: denies: anemia, blood clots, easy bleeding, easy bruising, swollen glands, others Endocrine: denies: excessive hunger, excessive sweating, excessive thirst, excessive urination, flushing, intolerance to cold, intolerance to heat, unexplained weight gain, unexplained weight loss, others Psychiatric: denies: anxiety, bipolar disorder, depression, hopeless, panic disorder, schizophrenia, sleepless, suicidal, others All Other Systems: Reviewed and Negative Physical Exam General Appearance: No Apparent Distress, Normal HEENT: PERRL/EOMI, Pharynx Normal, TMs Normal, Other (BONY TENDERNESS AND SWELLING ON NOSE, NO DEFORMITY AND NOSE BLEEDING. ) Neck: Full Range of Motion, Non-Tender, Normal, Normal Inspection Respiratory: Chest Non-Tender, Lungs Clear, No Accessory Muscle Use, No Respiratory Distress, Normal Breath Sounds Cardiovascular: No Edema, No JVD, No Murmur, No Gallop, Normal Peripheral Pulses, Regular Rate/Rhythm Breast Exam: Deferred Gastrointestinal: Epigastric, No Organomegaly, No Pulsatile Mass, Normal Bowel Sounds, Soft, Tenderness (MILD TENDERNESS EPIGASTRIC, NO GUARDING AND REBOUND TENDERNESS. ) Genitalia: Deferred Pelvic: Deferred Rectal: Deferred Extremities: No calf tenderness, Normal capillary refill, Normal inspection, Normal range of motion, Non-tender, No pedal edema Musculoskeletal : Apperance: Normal Neurologic: Alert, groutman II-XII nml as Tested, No Motor Deficits, Normal Affect, Normal Mood, No Sensory Deficits Cerebellar Function: Normal Reflexes: Normal Skin: Dry, Normal Color, Warm Peripheral Pulses: 2+ carotid (R), 2+ carotid (L) Lymphatic: No Adenopathy Was a procedure done? Was a procedure done?: No Differential Dx Considerations may include: CANNABIS ABUSE, DEHYDRATION, ELECTROLYTE IMBALANCE, NASAL BONE CONTUSION, NASAL BONE FRACTURE X-Ray, Labs, Meds, VS Vital Signs Date Time Temp Pulse Resp B/P (MAP) Pulse Ox O2 Delivery O2 Flow Rate FiO2 04/04/24 09:07 75 17 98 Room Air 04/04/24 09:07 97.9 75 17 156/85 (108) 98 97.9 04/04/24 08:42 98.8 74 16 120/71 (87) 98 Lab Test 04/04/24 09:40 04/04/24 08:41 Range/Units White Blood Count 8.4 4.4-10.8 10^3/uL Red Blood Count 4.87 4.5-5.90 10^6/uL Hemoglobin 15.1 13.5-17.5 g/dL Hematocrit 45.3 41.0-53.0 % Mean Corpuscular Volume 93.0 80.0-100.0 fL Mean Corpuscular Hemoglobin 31.1 28.0-32.0 pg Mean Corpuscular Hemoglobin Concent 33.4 32.0-36.0 g/dL Red Cell Distribution Width 13.6 11.8-14.3 % Platelet Count 300 140-450 10^3/uL Mean Platelet Volume 6.8 L 6.9-10.8 fL Neutrophils (%) (Auto) 59.3 37.0-80.0 % Lymphocytes (%) (Auto) 29.4 10.0-50.0 % Monocytes (%) (Auto) 9.1 0.0-12.0 % Eosinophils (%) (Auto) 1.5 0.0-7.0 % Basophils (%) (Auto) 0.7 0.0-2.0 % Neutrophils # (Auto) 5.0 1.6-8.6 10 ^3/uL Lymphocytes # (Auto) 2.5 0.4-5.4 10 ^3/uL Monocytes # (Auto) 0.8 0-1.3 10 ^3/uL Eosinophils # (Auto) 0.1 0-0.8 10 ^3/uL Basophils # (Auto) 0.1 0-0.2 10 ^3/uL Nucleated Red Blood Cells 0.1 % Sodium Level 138 136-145 mmol/L Potassium Level 3.5 3.5-5.1 mmol/L Chloride Level 101 98-107 mmol/L Carbon Dioxide Level 28 20-31 mmol/L Anion Gap 9 5-15 Blood Urea Nitrogen 13 9-23 mg/dL Creatinine 0.95 0.700-1.30 mg/dL Glomerular Filtration Rate Calc 110 >90 mL/min BUN/Creatinine Ratio 13.7 10.0-20.0 Serum Glucose 93 74-106 mg/dL Calcium Level 9.9 8.7-10.4 mg/dL Urine Opiates Screen Neg NEGATIVE Urine Fentanyl Screen Neg NEGATIVE Urine Barbiturates Screen Neg NEGATIVE Urine Phencyclidine Screen Neg NEGATIVE Urine Amphetamines Screen Neg NEGATIVE Urine Benzodiazepines Screen Neg NEGATIVE Urine Cocaine Screen Neg NEGATIVE Urine Cannabinoids Screen Pos NEGATIVE Current Medications Medications (Trade) Dose Ordered Sig/Miller Route Start Time Stop Time Status Last Admin Sodium Chloride 1,000 ml @ 1,000 mls/hr Q1H ONCE IV 04/04/24 09:30 04/04/24 10:29 DC 04/04/24 09:47 Metoclopramide HCl (Reglan Injection) 10 mg ONCE ONCE IV 04/04/24 09:30 04/04/24 09:31 DC 04/04/24 09:49 Ketorolac Tromethamine (Toradol Injection) 30 mg ONCE ONCE IV 04/04/24 10:00 04/04/24 10:01 DC 04/04/24 10:19 Famotidine (Pepcid Injection) 20 mg ONCE ONCE IV 04/04/24 10:00 04/04/24 10:01 DC 04/04/24 10:19 CLINICAL HISTORY: 28 years old, Male; fall injury. TECHNIQUE: 3 views of the nasal bones were obtained. COMPARISON: None FINDINGS: Deformities of the nasal maxillary sutures involving the adamaris culations between the nasal bones and frontal processes of maxilla bilaterally consistent with bilateral fractures, of uncertain chronicity with associated angulation. [id number] nasal septal deviation to the left IMPRESSION: Bilateral nasal bone fractures as described above. ATED BY: WENCESLAO HYLTON DO DICTATED DATE/TIME: 04/04/24946 SIGNED BY: WENCESLAO HYLTON DO SIGNED DATE/TIME: 04/04/24946 CC: X-Ray, Labs, Meds, VS Comment EXTERNAL MEDICAL RECORDS REVIEWED: [NONE] INDEPENDENT HISTORIANS: [NONE] SOCIAL DETERMINANTS OF HEALTH: [NONE] LABS ORDERED: CBC, BMP, UA, UDS REVIEWED AND INTERPRETED RESULTS: CANNABIS POSITIVE IMAGING ORDERED: XR NASAL BONES TREATMENTS ORDERED: NS 1 L IV, REGLAN 10 MG IV, PEPCID 20 MG IV TORADOL 30 MG IV PROCEDURES PERFORMED: NONE CRITICAL CARE TIME: NONE I HAVE DISCUSSED THE PATIENT WITH THE ATTENDING PHYSICIAN DR. HANSEN AND HE AGREES WITH THE PATIENT'S PLAN OF CARE AND DISPOSITION. BASED ON HISTORY OF PRESENT ILLNESS, AND PHYSICAL EXAM, PATIENT WILL BE DISCHARGED HOME. SHARED DECISION MAKING: PATIENT INSTRUCTED TO FOLLOW UP WITH PRIMARY CARE PROVIDER IN 1-2 DAYS FOR RE-EVALUATION OF SYMPTOMS. PATIENT VERBALIZES UNDERSTANDING TO RETURN TO ED FOR NEW OR WORSENING SYMPTOMS OR IF FOLLOW UP WITH PCP CANNOT BE OBTAINED. PATIENT FEELS COMFORTABLE GOING HOME AT THIS TIME. ALL QUESTIONS ADDRESSED AT TIME OF DISCHARGE. Images Reviewed?: Images reviewed and evaluated by me Time of 1ST Reevaluation: 11:31 Reevaluation 1ST: Improved Patient Education/Counseling: Diagnosis, Treatment, Need For Follow Up Family Education/Counseling: Diagnosis, Treatment, Need For Follow Up Medical Screening: No EMC Exist At This Time Departure 1 Departure Time of Disposition: 11:31 Impression: Primary Impression: Cannabinoid hyperemesis syndrome Additional Impression: Nasal bone fractures Qualified Codes: S02.2XXA - Fracture of nasal bones, initial encounter for closed fracture Disposition: 01 HOME / SELF CARE / HOMELESS Condition: Stable Additional Instructions: FOLLOW-UP WITH PCP IN 1 TO 2 DAYS. TAKE MEDICATIONS PRESCRIBED. RETURN TO ED FOR ANY NEW OR WORSENING SYMPTOMS. e-Prescriptions Metoclopramide Hcl (Reglan) 10 Mg Tab 10 MG PO BID, #30 TAB Prov: JASMINA MANZO 04/04/24 Acetaminophen (Tylenol Extra Strength Fo) 500 Mg Tab 1000 MG PO BID, #40 TAB Prov: JASMINA MANZO 04/04/24 Cephalexin Monohydrate (Cephalexin) 500 Mg Cap 1 CAP PO QID, #40 CAP Prov: JASMINA MANZO 04/04/24 Discharged With: Self Critical Care Note Critical Care Time?: No Stability Stability form required: No I personally scribed for JASMINA MANZO ([email or web address]) on 04/04/24 at 09:30. Electronically submitted by Tano Ibrahim ([facility] [employer]). I personally scribed for JASMINA MANZO ([email or web address]) on 04/04/24 at 10:12. Electronically submitted by Tano Ibrahim ([email or web address]). JASMINA MANZO Apr 04, 2024 09:30
[2024-04-04] MEDS: SODIUM CHLORIDE 0.9% 1,000 ML IV ONE (09:47)
[2024-04-04] MEDS: METOCLOPRAMIDE HCL 5MG/ml INJ 2ml VIAL IV ONE (09:49)
--- NOTE | 2024-04-04 09:50 | DVH ---
CLINICAL HISTORY: 28 years old, Male; fall injury. TECHNIQUE: 3 views of the nasal bones were obtained. COMPARISON: None FINDINGS: Deformities of the nasal maxillary sutures involving the articulations between the nasal b ones and frontal processes of maxilla bilaterally consistent with bilateral fractures, of uncertain c hronicity with associated angulation. [id number] nasal septal deviation to the left IMPRESSION: Bilateral nasal bone fractures as described above.
[2024-04-04 09:55] LABS: Basophils # (auto) 0.1 10 ^3/uL (0-0.2); Basophils % (auto) 0.7 % (0.0-2.0); Eosinophils # (auto) 0.1 10 ^3/uL (0-0.8); Eosinophils % (auto) 1.5 % (0.0-7.0); Hematocrit 45.3 % (41.0-53.0); Hemoglobin 15.1 g/dL (13.5-17.5); Lymphocytes # (auto) 2.5 10 ^3/uL (0.4-5.4); Lymphocytes % (auto) 29.4 % (10.0-50.0); Mean Corpuscular Hemoglobin 31.1 pg (28.0-32.0); Mean Corpuscular Hgb Conc. 33.4 g/dL (32.0-36.0); Monocytes # (auto) 0.8 10 ^3/uL (0-1.3); Monocytes % (auto) 9.1 % (0.0-12.0); Neutrophils % (auto) 59.3 % (37.0-80.0); Nucleated Red Blood Cells % 0.1 %; Platelet Count (auto) 300 10^3/uL (140-450); Red Blood Cells 4.87 10^6/uL (4.5-5.90); Red Cell Distribution Width 13.6 % (11.8-14.3); White Blood Cell 8.4 10^3/uL (4.4-10.8)
[2024-04-04 09:58] LABS: Chloride 101 mmol/L (98-107); Sodium 138 mmol/L (136-145)
[2024-04-04 09:59] LABS: Anion Gap 9 (5-15); Carbon Dioxide 28 mmol/L (20-31)
[2024-04-04 10:00] LABS: Calcium 9.9 mg/dL (8.7-10.4)
[2024-04-04 10:04] LABS: BUN/Creatinine Ratio 13.7 (10.0-20.0); Blood Urea Nitrogen 13 mg/dL (9-23); Glucose 93 mg/dL (74-106)
[2024-04-04 10:05] LABS: Cannabinoid Screen, Urine Pos (NEGATIVE)
[2024-04-04 10:07] LABS: Amphetamine Screen, Urine Neg (NEGATIVE); Barbiturate Scree,Urine Neg (NEGATIVE); Benzodiazephine Screen, Urine Neg (NEGATIVE); Cocaine Screen, Urine Neg (NEGATIVE); Opiate Scree,Urine Neg (NEGATIVE); Phencyclidine Screen, Urine Neg (NEGATIVE)
[2024-04-04 10:07] LABS: Potassium 3.5 mmol/L (3.5-5.1)
[2024-04-04] MEDS: KETOROLAC TROMETH 30 MG/ML 1ML VIAL IV ONE (10:19)
[2024-04-04] MEDS: FAMOTIDINE (10MG/ML) 2ML VL IV ONE (10:19)
[2024-04-04] MEDS ORDERED: CEPH500C PO (11:27)
[2024-04-04] MEDS ORDERED: METO-281 PO (11:27)
[2024-04-04] MEDS ORDERED: ACET-1304 PO (11:27)
== END 2024-04-04 16:53 | disposition home or self-care (01) ==
LOC: ER 08:31
DX: S02.2XXA Fracture of nasal bones, initial encounter for closed fracture (principal); R11.2 Nausea with vomiting, unspecified; J45.909 Unspecified asthma, uncomplicated; K21.9 Gastro-esophageal reflux disease without esophagitis; Z87.442 Personal history of urinary calculi; Z88.5 Allergy status to narcotic agent; W01.0XXA Fall on same level from slipping, tripping and stumbling without subsequent striking against object, initial encounter; Y93.89 Activity, other specified; Y92.89 Other specified places as the place of occurrence of the external cause; Y99.8 Other external cause status
CPT/HCPCS: 36415; 70160; 80048; 80307; 85025; 96361; 96374; 96375; 99284; J1885; J2765; J3490; J7030

== ENCOUNTER 2024-08-27 14:23 | Inpatient (IN) | payer MEDICAID ==
[~2024-08-27] VITALS: Ht 177.8 cm; Wt 69.2 kg
[~2024-08-27 14:23] MED LIST changes: +ACET-1304 PO; +CEPH500C PO; +METO-281 PO
--- NOTE | 2024-08-27 14:32 | ED.PDOC ---
GI ASSESSMENT HPI Comments HPI: This is a 29 year old male DEREK presenting to the ED with chief complaint of abdominal pain. Patient reports that he has been experiencing periumbilical abdominal pain with associated nausea and vomiting nonbilious nonbloody for the past 3 days. Patient relays that he has had similar pain in the past, being diagnosed with gastritis during that time. Patient states that he was seen at urgent care today where he received a Zofran injection and was also diagnosed with gastritis. Patient denies any diarrhea, hematemesis, melena, SOB, chest pain, fever, or chills. Initial Vitals BP: HR: RR: O2 Sat: Temp: Past Medical history: GERD, Asthma, Kidney Stones Past Surgical history: Tonsillectomy Medications: None Social History: Denies smoking and ETOH. Marijuana use. Allergies: Fentanyl HPI: Poor Historian. REVIEW OF SYSTEMS: CONSTITUTIONAL: Denies acute: fever, diaphoresis, chills, generalized weakness. HEAD: Denies acute: headache, photophobia Eyes: Denies acute: Double vision, vision loss, eye pain, eye discharge. EARS: Denies acute: tinnitus, hearing loss, ear discharge, ear pain, THROAT: Denies acute: sore throat, swelling, difficulty swallowing , pain with swallowing, change in voice. NECK: Denies acute: neck pain, neck swelling, stiff neck. HEART: Denies acute : chest pain, palpitations, LUNGS: Denies acute: SOB, wheezing, cough, hemoptysis ABDOMEN: Denies acute: diarrhea, melena , hematemesis, hematochezia SKIN: Denies acute: rash, redness, lesions, itchiness. EXTREMITIES: Denies acute: calf pain, numbness, tingling, weakness, denies pain in extremity. Denies acute: Low back pain. Neuro: Denies acute: focal neurological deficit, motor or sensory focal neurological deficit, tremors, seizure like activity, confusion, dizziness, change in mental status, loss of bowel or bladder function, cauda equina like symptoms. : Denies acute: dysuria, hematuria, flank pain, increase in urinary frequency. PSYCH: Denies acute: hallucination, suicidal ideation, homicidal ideation. PHYSICAL EXAM: General: ---[id number]-----acute distress, awake and alert. Head: normocephalic, atraumatic. Neck: supple, trachea is midline, no swelling. Throat: Normal phonation. Eyes:, no erythema, no purulent discharge, no proptosis, no icterus. Heart: regular rate, regular rhythm, no significant murmur appreciated. Lungs: no apparent respiratory distress, Able to speak in full sentences. No wheezing, no rhonchi, no crackles. No stridors Clear to auscultation bilaterally. Abdomen: Epigastric tender to palpation, non distended, soft, no guarding, no rebound, + bowel sounds. Neuro: Awake, Alert, oriented to name, self, situation, follows commands GCS=15. Speech is normal. Skin: no petechia, no purpura, no cyanosis, non-pale, not jaundice. Lower extremities: --no - Pitting edema no deformity, no focal swelling, no calf TTP. Makes eye contact. moves all four extremities. Face: no apparent facial droop. ED COURSE: DISCLAIMER: This medical document was created using an electronic medical record system with voice recognition software and computerized dictation system. Although this document has been carefully reviewed, there might still be some phonetic and typographical errors. Occasional wrong-word or "sound-alike" substitutions may have occurred due to the inherent limitations of voice recognition software. These areas are purely typographical due to imperfections of the software programs and do not reflect any compromise in the patient's medical care. Please read the chart carefully and recognize, using context, where these substitutions have occurred. Time Seen by MD: 14:29 Primary Care Provider: charlie Reviewed Notes: Medications, Allergies Allergies: Coded Allergies: Fentanyl (Verified Allergy, Severe, 04/13/19) Home Meds Active Scripts Azithromycin (Azithromycin) 250 Mg Tab, 250 MG PO DAILY MDD 500 for 3 Days, #3 TAB 0 Refills 2 TABLETS ORALLY ON DAY ONE, THEN 1 TABLET ORALLY DAILY FOR 4 DAYS Prov:ESSENCE PRITCHARD RESIDENT 09/01/24 Ondansetron Odt 4MG Tab (ZOFRAN PO) 4 Mg Tb, 4 MG PO BID PRN for 10 Days, #20 TAB ODT TAB-DISSOLVE IN MOUTH, THEN SWALLOW Prov:ESSENCE PRITCHARD 08/31/24 Amoxicillin & Pot Clavulanate (AUGMENTIN TABLET) 875 Mg Tb, 875 MG PO BID for 5 Days, #10 TAB Prov:ESSENCE PRITCHARD RESIDENT 08/31/24 Metoclopramide Hcl (Reglan) 10 Mg Tab, 10 MG PO BID, #30 TAB Prov:JASMINA MANZO 04/04/24 Acetaminophen (Tylenol Extra Strength Fo) 500 Mg Tab, 1000 MG PO BID, #40 TAB Prov:JASMINA MANZO 04/04/24 Ibuprofen Micronized (MOTRIN TABLET) 600 Mg Tb, 600 MG PO TID PRN for 3 Days, #9 TAB *Black box warning-NSAIDS can increase risk of TX & hypertension, GI irritation, ulceration, bleed, perferation. Do not use post cardiac surgery. Use short duration/lowest effective dose. Prov:LORIE JENSEN MD 03/25/24 Lidocaine (Anorectal) (Lidocaine 5%) 5 % Cre, 5 % EX DAILY, #30 CRE Prov:JASMINA MANZO 11/22/23 Pantoprazole Sodium Sesquihydr (Pantoprazole Sodium) 40 Mg Tab, 40 MG PO BID, #100 TAB Prov:LUCILA ALMANZAR MD 04/26/17 Reported Medications Ondansetron HCl (Ondansetron Hydrochloride) 8 Mg Tab, PO PRN for NAUSEA / VOMITING 08/28/24 [Hydrocodone/Acetaminophen] 7.5/325MG No Conflict Check, PO Q4HPRN PRN for MODERATE PAIN, #60 07/24/14 Trazodone Hcl (Trazodone Hcl) 150 Mg Tab, 150 MG PO QHSP PRN for FOR INSOMNIA, # 30 07/24/14 Carisoprodol (Carisoprodol) 350 Mg Tab, 350 MG PO TID, #90 07/24/14 Information Source: Patient, Emergency Med Personnel Mode of Arrival: EMS Was a procedure done? Was a procedure done?: No GI differential Dx Differential Diagnosis: Bowel Obstruction, Gastritis/PUD, Gastroenteritis, Pancreatitis, Dehydration, Electrolyte Imbalance, Food Poisoning, Bacterial, Viral, Other (DDX include but not limited to diverticulitis, colitis, gastroenteritis, acute abdomen, SBO, enteritis, constipation, volvulus, appendicitis, Gallbladder disease, choledocolithiasis, ascending cholangitis, pancreatitis, intraAbdominal mass/neoplasm, hepatitis, UTI, pylonephritis, kidney stone, aneurysm, dissection, Inflammatory bowel disease, gastroparesis, ischemic bowel.) X-Ray, Labs, Meds, VS Vital Signs Date Time Temp Pulse Resp B/P (MAP) Pulse Ox O2 Delivery O2 Flow Rate FiO2 08/27/24 21:00 106/50 (68) 08/27/24 20:32 97.1 89 117/67 (84) 96 97.1 08/27/24 17:00 59 20 117/70 (86) 96 08/27/24 15:00 98.4 57 20 125/61 (82) 96 98.4 08/27/24 15:00 Room Air* 0 21 08/27/24 14:47 98.3 103 22 145/81 (102) 98 98.3 Lab Test 08/27/24 17:24 08/27/24 15:21 08/27/24 15:00 Range/Units Lactic Acid Level 3.5 *H 2.3 *H 0.4-2.0 mmol/L White Blood Count 14.4 H 4.4-10.8 10^3/uL Red Blood Count 4.77 4.5-5.90 10^6/uL Hemoglobin 14.9 13.5-17.5 g/dL Hematocrit 44.6 41.0-53.0 % Mean Corpuscular Volume 93.6 80.0-100.0 fL Mean Corpuscular Hemoglobin 31.2 28.0-32.0 pg Mean Corpuscular Hemoglobin Concent 33.3 32.0-36.0 g/dL Red Cell Distribution Width 13.7 11.8-14.3 % Platelet Count 271 140-450 10^3/uL Mean Platelet Volume 7.1 6.9-10.8 fL Neutrophils (%) (Auto) 86.2 H 37.0-80.0 % Lymphocytes (%) (Auto) 8.1 L 10.0-50.0 % Monocytes (%) (Auto) 5.3 0.0-12.0 % Eosinophils (%) (Auto) 0.1 0.0-7.0 % Basophils (%) (Auto) 0.3 0.0-2.0 % Neutrophils # (Auto) 12.4 H 1.6-8.6 10 ^3/uL Lymphocytes # (Auto) 1.2 0.4-5.4 10 ^3/uL Monocytes # (Auto) 0.8 0-1.3 10 ^3/uL Eosinophils # (Auto) 0 0-0.8 10 ^3/uL Basophils # (Auto) 0 0-0.2 10 ^3/uL Nucleated Red Blood Cells 0.0 % Sodium Level 145 136-145 mmol/L Potassium Level 4.3 3.5-5.1 mmol/L Chloride Level 112 H 98-107 mmol/L Carbon Dioxide Level 23 20-31 mmol/L Anion Gap 10 5-15 Blood Urea Nitrogen 10 9-23 mg/dL Creatinine 1.05 0.700-1.30 mg/dL Glomerular Filtration Rate Calc 97 >90 mL/min BUN/Creatinine Ratio 9.5 L 10.0-20.0 Serum Glucose 126 H 74-106 mg/dL Calcium Level 10.2 8.7-10.4 mg/dL Total Bilirubin 1.6 H 0.2-1.0 mg/dL Aspartate Amino Transferase (AST) 21 13-40 U/L Alanine Aminotransferase (ALT) 22 7-40 U/L Alkaline Phosphatase 70 46-116 U/L Troponin I High Sensitivity < 3 L </=54 ng/L Total Protein 7.8 5.7-8.2 g/dL Albumin 5.2 H 3.2-4.8 g/dL Lipase 27 12-53 U/L Atypical p-ANCA <1:20 Neg:<1:20 titer Saccharomyces cerevisiae IgG Ab <20.0 0.0-24.9 Units Saccharomyces cerevisiae IgA Ab <20.0 0.0-24.9 Units Urine Color Yellow Yellow Urine Clarity Clear Clear Urine pH 7.5 5.0-9.0 Urine Specific [place] 1.044 H 1.001-1.035 Urine Protein 1+ H Negative Urine Ketones 1+ H Negative Urine Blood Trace H Negative /uL Urine Nitrite Negative Negative Urine Bilirubin Negative Negative Urine Urobilinogen 2 H Negative mg/dL Urine Leukocyte Esterase Negative Negative /uL Urine RBC 22 0 - 3 /hpf Urine Microscopic WBC 3 0-3 /HPF Urine Squamous Epithelial Cells None seen <5 /hpf Urine Bacteria None seen None Seen /hpf Urine Mucus Few None Seen Urine Glucose Normal Normal mg/dL Urine Opiates Screen Neg NEGATIVE Urine Fentanyl Screen Neg NEGATIVE Urine Barbiturates Screen Neg NEGATIVE Urine Phencyclidine Screen Neg NEGATIVE Urine Amphetamines Screen Neg NEGATIVE Urine Benzodiazepines Screen Neg NEGATIVE Urine Cocaine Screen Neg NEGATIVE Urine Cannabinoids Screen Pos NEGATIVE [facility] [id number] [facility] [id number] Ph: [phone] DIAGNOSTIC IMAGING Diagnostic Imaging Report : [id number] Signed PATIENT: NAEL SLIVAACCT: [id number] UNIT: [id number] : 1995 LOC: ER ROOM / BED: / AGE / SEX: 29 / M ADM STATUS: REG ER SERVICE [id number] ORDERING PHYSICIAN: PAULA BARNEY DO PROCEDURE(s): ABPL - CT AB PEL WO CON-NO ORAL OR IV REASON: epig pain ORDER NUMBER(s): [id number], ACCESSION NUMBER(s): [id number] Exam: CT CT AB PEL WO CON-NO ORAL OR IV History: epig pain Comparison Study: CT CT AB PEL WO CON-NO ORAL OR IV on DOS: 02/08/24, CT CT AB PEL WO CON-NO ORAL OR IV on DOS: 09/09/23, CT ABD PELVIS WO CONTRAST on DOS: 10/21/20 Technique: Multidetector spiral CT of the abdomen was performed from lung bases to pubic symphysis. Imaging was performed without IV contrast. Axial, coronal and sagittal multiplanar reformats were obtained from the axial data set by the technologist. Radiation Dose : 1. Abdomen/Pelvis: CTDIvol 5.1 mGy, DLP 272 mGy*cm. Findings: Evaluation of solid organs is limited due to lack of intravenous contrast use. Lung Bases: No acute or significant lung base finding. Normal heart size. No pleural or pericardial effusion. Liver: The liver is normal in size. No focal lesions. Gallbladder and Biliary Tree: Unremarkable Spleen: Unremarkable Pancreas: The pancreas is grossly normal in appearance. Adrenal Glands: Unremarkable Kidneys: Kidneys are grossly normal without calculi or hydronephrosis. Bladder: Grossly unremarkable for degree of distention. Bowel: The stomach is grossly normal in appearance. No evidence of bowel obstruction. Concentric wall thickening throughout the colon suggestive of infectious/inflammatory colitis. The appendix is not visualized; however, no secondary findings of acute appendicitis identified. Ascites: Absent Lymphadenopathy: No mesenteric, retroperitoneal or periportal lymphadenopathy. Abdominal Wall and Mesentery: Unremarkable. Vasculature: The visualized abdominal aorta is normal in size and caliber. Evaluation of abdominal and pelvic vessels is limited due to lack of intravenous contrast. Pelvic Organs: Unremarkable Musculoskeletal: No aggressive focal bony lesions, acute fractures or di slocation. IMPRESSION: 1. Concentric wall thickening throughout the colon, suggestive of infectious/inflammatory colitis. Radiation optimization: All CT scans at this facility use at least one of these dose optimization techniques: automated exposure control mA and/or kV adjustment per patient size (includes targeted exams where dose is matched to clinical indication) or iterative reconstruction. ATED BY: KENZIE SAUCEDA MD DICTATED DATE/TIME: 08/27/241516 SIGNED BY: KENZIE SAUCEDA MD SIGNED DATE/TIME: 08/27/241516 CC: Time of 1ST Reevaluation: 15:29 Reevaluation 1ST: Unchanged Patient Education/Counseling: Diagnosis, Treatment Family Education/Counseling: No Family Present Comments MDM: patient presented with the above HPI.----abdominal pain--workup was initiated. patient was found with the above mentioned diagnosis. the following medications were ordered: please refer to order lists of meds and tests obtained by myself Dr. Barney. Patient ED course and VS have been stabilized. Patient has been reassessed in the ED and remained in a stable condition. Pertinent incidental findings were discussed with the patient and/or family. Patient/family voices understanding and is agreeable with plan. Patient has been observed in the ED adequate length of time to insure improvement/stability. Escalation of care considered: Consideration of escalation to observation or admission Patient was given GI cocktail, Cipro and Flagyl, fluids. Nausea medications. Patient was ADMITTED to the medicine team for further evaluation and treatment of their presentation. All the reports of any imaging studies that were ordered by myself were reviewed by myself. Departure 1 Departure Time of Disposition: 15:39 Impression: Primary Impression: Colitis Disposition: ADMITTED INPATIENT Admit to: Tele Condition: Guarded e-Prescriptions Azithromycin (Azithromycin) 250 Mg Tab 250 MG PO DAILY MDD 500 for 3 Days, #3 TAB 0 Refills 2 TABLETS ORALLY ON DAY ONE, THEN 1 TABLET ORALLY DAILY FOR 4 DAYS Prov: ESSENCE PRITCHARD RESIDENT 09/01/24 Ondansetron Odt 4MG Tab (ZOFRAN PO) 4 Mg Tb 4 MG PO BID PRN for 10 Days, #20 TAB ODT TAB-DISSOLVE IN MOUTH, THEN SWALLOW Prov: ESSENCE PRITCHARD RESIDENT 08/31/24 Amoxicillin & Pot Clavulanate (AUGMENTIN TABLET) 875 Mg Tb 875 MG PO BID for 5 Days, #10 TAB Prov: ESSENCE PRITCHARD RESIDENT 08/31/24 Discharged With: Self Critical Care Note Critical Care Time?: Yes (30 min-critical care time only) I personally scribed for PAULA BARNEY DO ([email or web address]) on 08/27/24 at 14:32. Electronically submitted by Fox Ontiveros ([email or web address]). I personally scribed for PAULA BARNEY DO ([email or web address]) on 08/27/24 at 15:41. Electronically submitted by Fox Ontiveros ([email or web address]). PAULA BARNEY DO Aug 27, 2024 14:32
--- NOTE | 2024-08-27 15:19 | DVH ---
Exam: CT CT AB PEL WO CON-NO ORAL OR IV History: epig pain Comparison Study: CT CT AB PEL WO CON-NO ORAL OR IV on DOS: 02/08/24, CT CT AB PEL WO CON-NO ORAL OR IV on DOS: 09/09/23, CT ABD PELVIS WO CONTRAST on DOS: 10/21/20 Technique: Multidetector spiral CT of the abdomen was performed from lung bases to pubic symphysis. Imaging was performed without IV contrast. Axial, coronal and sagittal multiplanar reformats were ob tained from the axial data set by the technologist. Radiation Dose : 1. Abdomen/Pelvis: CTDIvol 5.1 mGy, DLP 272 mGy*cm. Findings: Evaluation of solid organs is limited due to lack of intravenous contrast use. Lung Bases: No acute or significant lung base finding. Normal heart size. No pleural or pericardial effusion. Liver: The liver is normal in size. No focal lesions. Gallbladder and Biliary Tree: Unremarkable Spleen: Unremarkable Pancreas: The pancreas is grossly normal in appearance. Adrenal Glands: Unremarkable Kidneys: Kidneys are grossly normal without calculi or hydronephrosis. Bladder: Grossly unremarkable for degree of distention. Bowel: The stomach is grossly normal in appearance. No evidence of bowel obstruction. Concentric wall thickening throughout the colon suggestive of infectious/inflammatory colitis. The appendix is not visualized; however, no secondary findings of acute appendicitis identified. Ascites: Absent Lymphadenopathy: No mesenteric, retroperitoneal or periportal lymphadenopathy. Abdominal Wall and Mesentery: Unremarkable. Vasculature: The visualized abdominal aorta is normal in size and caliber. Evaluation of abdominal a nd pelvic vessels is limited due to lack of intravenous contrast. Pelvic Organs: Unremarkable Musculoskeletal: No aggressive focal bony lesions, acute fractures or dislocation. IMPRESSION: 1. Concentric wall thickening throughout the colon, suggestive of infectious/inflammatory colitis. Radiation optimization: All CT scans at this facility use at least one of these dose optimization aga hniques: automated exposure control mA and/or kV adjustment per patient size (includes targeted exam s where dose is matched to clinical indication) or iterative reconstruction.
[2024-08-27 15:33] LABS: Hematocrit 44.6 % (41.0-53.0); Hemoglobin 14.9 g/dL (13.5-17.5); Mean Corpuscular Hemoglobin 31.2 pg (28.0-32.0); Mean Corpuscular Volume 93.6 fL (80.0-100.0); Nucleated Red Blood Cells % 0.0 %
[2024-08-27] MEDS: SODIUM CHLORIDE 0.9% 1,000 ML IV ONE ×2 (15:38→19:31)
[2024-08-27] MEDS: ONDANSETRON HCL 4 MG/2 ML VIAL IV ONE ×2 (15:38→20:20)
[2024-08-27 15:49] LABS: Alanine Aminotransferase 22 U/L (7-40); Alkaline Phosphatase 70 U/L (46-116); Anion Gap 10 (5-15); BUN/Creatinine Ratio 9.5 (10.0-20.0); Blood Urea Nitrogen 10 mg/dL (9-23); Calcium 10.2 mg/dL (8.7-10.4); Carbon Dioxide 23 mmol/L (20-31); Lipase 27 U/L (12-53); Potassium 4.3 mmol/L (3.5-5.1); Sodium 145 mmol/L (136-145); Total Protein 7.8 g/dL (5.7-8.2)
[2024-08-27 15:50] LABS: Albumin 5.2 g/dL (3.2-4.8); Chloride 112 mmol/L (98-107); Glucose 126 mg/dL (74-106)
[2024-08-27 15:51] LABS: Bilirubin, Total 1.6 mg/dL (0.2-1.0)
[2024-08-27 15:53] LABS: Lactic Acid w/Reflex 2.3 mmol/L (0.4-2.0)
[2024-08-27] MEDS: METOCLOPRAMIDE HCL 5MG/ml INJ 2ml VIAL IV ONE (16:26)
[2024-08-27 17:00] LABS: Urine Protein, UAD 1+ (Negative)
[2024-08-27 17:10] LABS: Cocaine Screen, Urine Neg (NEGATIVE)
[2024-08-27 17:11] LABS: Amphetamine Screen, Urine Neg (NEGATIVE); Barbiturate Scree,Urine Neg (NEGATIVE); Benzodiazephine Screen, Urine Neg (NEGATIVE); Cannabinoid Screen, Urine Pos (NEGATIVE); Opiate Scree,Urine Neg (NEGATIVE); Phencyclidine Screen, Urine Neg (NEGATIVE)
[2024-08-27] MEDS: LIDOCAINE VISCOUS 2% 15ML UD PO ONE (17:20)
[2024-08-27] MEDS: PANTOPRAZOLE 40 MG TAB PO ONE (17:21)
[2024-08-27] MEDS: SUCRALFATE 1 GM TAB PO ONE (17:22)
[2024-08-27] MEDS: SODIUM CHLORIDE 0.9% 2,000 ML IV ONE (18:22)
[2024-08-27] MEDS: CIPROFLOXACIN 400MG/200ML 200 ML IV ONE (18:22)
[2024-08-27] MEDS ORDERED: SODIUM CHLORIDE 0.9% 1,000 ML IV ONE (19:15)
[2024-08-27] MEDS ORDERED: NITROGLYCERIN 0.4 MG SL TAB SL PRN (21:30)
[2024-08-27] MEDS: SODIUM CHLORIDE 0.9% 1,000 ML IV SCH (21:45)
--- NOTE | 2024-08-27 21:47 | DVHHP2 ---
History of Present Illness History of Present Illness This is a 29-year-old male with past medical history of GERD, Asthma, kidney stone, substance abuse came to ER with the complain of vomiting for last 3 days which is worsen day by day. The patient tried Zofran and Protonix which is prescribed by GI doctor does not help. Patient also complain of upper abdominal pain which is intermittent, localized, sharp and crampy, 9/10 intensity, worsen with vomiting. He had low-grade fever and diarrhea for 3 days, passage jelly like stool treatment but not mixed with blood. Patient having multiple admissi on with similar symptom and last discharged from [facility] 08/15/2024.EGD (09/04/2023)-1 cm sliding-type hiatal hernia with slightly irregular squamocolumnar junction no significant esophagitis, Mild gastropathy of the proximal stomach,Minimal gastro-duodenitis with improvement in previously noted gastritis. Denies any cough, SOB, headache, dysuria, vertigo. No recent history of sick contact, eat street food or recent travel. Past Medical history: GERD, Asthma, Kidney Stones Past Surgical history: Tonsillectomy Medications: None Social History: Denies smoking and ETOH. Marijuana use. Allergies: Fentanyl Review of Systems Constitutional: Yes: Fever (Low-grade fever); No: Chills, Sweats, Weakness, Malaise, Other Eyes: Pain, Vision change, Conjunctivae inflammation, Eyelid inflammation, Other, Redness ENT: Ear pain, Ear discharge, Nose pain, Nose discharge, Nose congestion, Mouth pain, Mouth swelling, Throat pain, Throat swelling, Other Respiratory: Cough, Dry, Shortness of breath, SOB with excertion, Wheezing, Hemoptysis, Pleuritic Pain, Sputum, Wheezing, Other Cardiovascular: Chest Pain, Palpitations, Orthopnea, Paroxysmal Noc. Dyspnea, Edema, Lt Headedness, Other Gastrointestinal: Nausea, Vomiting, Abdominal Pain, Diarrhea Genitourinary: No Dysuria, No Frequency, No Incontinence, No Hematuria, No Retention, No Other Musculoskeletal: No: other, neck pain, shoulder pain, arm pain, back pain, hand pain, leg pain, foot pain Skin: No: Rash, Lesions, Jaundice, Bruising, Other Neurological: No: Weakness, Numbness, Incoordination, Change in speech, Confusion, Seizures, Other Allergies: Coded Allergies: Fentanyl (Verified Allergy, Severe, 04/13/19) Medications Current Medications Medications Dose Ordered Sig/Miller Route Start Time Stop Time Status Last Admin Dose Admin Nitroglycerin 0.4 mg Q5MINP PRN SL 08/27/24 21:30 UNV Exam Vital Signs Vital Signs Date Time Temp Pulse Resp B/P (MAP) Pulse Ox O2 Delivery O2 Flow Rate FiO2 08/27/24 20:32 97.1 89 117/67 (84) 96 97.1 08/27/24 17:00 20 08/27/24 15:00 Room Air* 0 21 General Appearance: Alert, Oriented X3, Cooperative HEENT: PERRLA, EOMI Respiratory: Clear to auscultation, Normal air movement Cardiovascular: Regular rate, Normal S1, Normal S2 Abdominal: Normal bowel sounds, Soft, No hepatospenomegaly, Other (Tender on deep palpation on epigastric region) Extremities: No clubbing, No cyanosis, No edema, Normal pulses Skin: No significant lesion Neuro: Normal speech, Strength at 5/5 X4 ext Labs/Xrays Labs Test 08/27/24 17:24 08/27/24 15:21 08/27/24 15:00 Range/Units Lactic Acid Level 3.5 *H 0.4-2.0 mmol/L White Blood Count 14.4 H 4.4-10.8 10^3/uL Red Blood Count 4.77 4.5-5.90 10^6/uL Hemoglobin 14.9 13.5-17.5 g/dL Hematocrit 44.6 41.0-53.0 % Mean Corpuscular Volume 93.6 80.0-100.0 fL Mean Corpuscular Hemoglobin 31.2 28.0-32.0 pg Mean Corpuscular Hemoglobin Concent 33.3 32.0-36.0 g/dL Red Cell Distribution Width 13.7 11.8-14.3 % Platelet Count 271 140-450 10^3/uL Mean Platelet Volume 7.1 6.9-10.8 fL Neutrophils (%) (Auto) 86.2 H 37.0-80.0 % Lymphocytes (%) (Auto) 8.1 L 10.0-50.0 % Monocytes (%) (Auto) 5.3 0.0-12.0 % Eosinophils (%) (Auto) 0.1 0.0-7.0 % Basophils (%) (Auto) 0.3 0.0-2.0 % Neutrophils # (Auto) 12.4 H 1.6-8.6 10 ^3/uL Lymphocytes # (Auto) 1.2 0.4-5.4 10 ^3/uL Monocytes # (Auto) 0.8 0-1.3 10 ^3/uL Eosinophils # (Auto) 0 0-0.8 10 ^3/uL Basophils # (Auto) 0 0-0.2 10 ^3/uL Nucleated Red Blood Cells 0.0 % Sodium Level 145 136-145 mmol/L Potassium Level 4.3 3.5-5.1 mmol/L Chloride Level 112 H 98-107 mmol/L Carbon Dioxide Level 23 20-31 mmol/L Anion Gap 10 5-15 Blood Urea Nitrogen 10 9-23 mg/dL Creatinine 1.05 0.700-1.30 mg/dL Glomerular Filtration Rate Calc 97 >90 mL/min BUN/Creatinine Ratio 9.5 L 10.0-20.0 Serum Glucose 126 H 74-106 mg/dL Calcium Level 10.2 8.7-10.4 mg/dL Total Bilirubin 1.6 H 0.2-1.0 mg/dL Aspartate Amino Transferase (AST) 21 13-40 U/L Alanine Aminotransferase (ALT) 22 7-40 U/L Alkaline Phosphatase 70 46-116 U/L Troponin I High Sensitivity < 3 L </=54 ng/L Total Protein 7.8 5.7-8.2 g/dL Albumin 5.2 H 3.2-4.8 g/dL Lipase 27 12-53 U/L Urine Color Yellow Yellow Urine Clarity Clear Clear Urine pH 7.5 5.0-9.0 Urine Specific [place] 1.044 H 1.001-1.035 Urine Protein 1+ H Negative Urine Ketones 1+ H Negative Urine Blood Trace H Negative /uL Urine Nitrite Negative Negative Urine Bilirubin Negative Negative Urine Urobilinogen 2 H Negative mg/dL Urine Leukocyte Esterase Negative Negative /uL Urine RBC 22 0 - 3 /hpf Urine Microscopic WBC 3 0-3 /HPF Urine Squamous Epithelial Cells None seen <5 /hpf Urine Bacteria None seen None Seen /hpf Urine Mucus Few None Seen Urine Glucose Normal Normal mg/dL Urine Opiates Screen Neg NEGATIVE Urine Fentanyl Screen Neg NEGATIVE Urine Barbiturates Screen Neg NEGATIVE Urine Phencyclidine Screen Neg NEGATIVE Urine Amphetamines Screen Neg NEGATIVE Urine Benzodiazepines Screen Neg NEGATIVE Urine Cocaine Screen Neg NEGATIVE Urine Cannabinoids Screen Pos NEGATIVE SEPSIS Sepsis Screen Date sepsis recognized/suspect: Aug 27, 2024 Time Sepsis recognized/suspect: 1429 Recent Procedure: No On Antibiotic Therapy: No Respiratory Rate >20: Yes Heart Rate >90: Yes Temp<36 C (96.8 F) or >38.3 C: No SBP <90 or MAP <65 mmHG: No New Acute Mental Status Change: No Is the patient on CPAP, BIPAP,: No Physician Orders Interactive [employer] Specialist (08/27/24 ) Electrocardigram (08/27/24 14:28) Ct Ab Pel Wo Con-No Oral Or Iv (08/27/24 14:28) Admit (08/27/24 21:28) Nitroglycerin Sublingual (Ntrostat Subli (08/27/24 21:30) Npo (Nothing By Mouth) Diet (08/28/24 Breakfast) Inflammatory Bowel Disease-Ibd (08/27/24 21:40) * Gi Dvh Bundle Wrapper (08/27/24 21:40) NS (08/27/24 21:45) Ciprofloxacin 400mg/200ml (Cipro Iv) (08/27/24 22:00) Metronidazole Ivpb Flagyl (08/27/24 22:00) Pantoprazole (Protonix) (08/28/24 10:00) Ondansetron Hcl (Zofran) (08/28/24 00:00) Metoclopramide Injection (Reglan Injecti (08/27/24 21:45) Vital Signs Date Time Temp Pulse Resp B/P (MAP) Pulse Ox O2 Delivery O2 Flow Rate FiO2 08/27/24 20:32 97.1 89 117/67 (84) 96 97.1 08/27/24 17:00 59 20 117/70 (86) 96 08/27/24 15:00 98.4 57 20 125/61 (82) 96 98.4 08/27/24 15:00 Room Air* 0 21 08/27/24 14:47 98.3 103 22 145/81 (102) 98 98.3 Laboratory Tests Test 08/27/24 15:21 08/27/24 17:24 Lactic Acid Level 2.3 mmol/L (0.4-2.0) *H 3.5 mmol/L (0.4-2.0) *H White Blood Count 14.4 10^3/uL (4.4-10.8) H Medications Medications Dose Ordered Sig/Miller Route Start Time Stop Time Status Last Admin Dose Admin Ciprofloxacin 200 ml @ 200 mls/hr ONCE ONCE IV 08/27/24 15:45 08/27/24 16:44 MS 08/27/24 18:22 200 MLS/HR Lidocaine HCl 10 ml ONCE ONCE PO 08/27/24 14:30 08/27/24 14:31 MS 08/27/24 17:20 10 ML Metoclopramide HCl 5 mg ONCE ONCE IV 08/27/24 16:22 08/27/24 16:23 MS 08/27/24 16:26 5 MG Metronidazole 100 ml @ 100 mls/hr ONCE ONCE IV 08/27/24 15:45 08/27/24 16:44 MS 08/27/24 16:26 100 MLS/HR Ondansetron HCl 8 mg ONCE ONCE IV 08/27/24 14:30 08/27/24 14:31 MS 08/27/24 16:00 8 MG Ondansetron HCl 8 mg ONCE ONCE IV 08/27/24 20:15 08/27/24 20:16 MS 08/27/24 20:20 8 MG Pantoprazole Sodium 40 mg ONCE ONCE PO 08/27/24 14:30 08/27/24 14:31 MS 08/27/24 17:21 40 MG Sodium Chloride 1,000 ml @ 1,000 mls/hr Q1H ONCE IV 08/27/24 14:30 08/27/24 15:29 MS 08/27/24 16:00 1,000 MLS/HR Sodium Chloride 1,000 ml @ 1,000 mls/hr Q1H ONCE IV 08/27/24 19:15 08/27/24 20:14 MS 08/27/24 19:31 1,000 MLS/HR Sodium Chloride 2,000 ml @ 1,000 mls/hr Q2H ONCE IV 08/27/24 18:32 08/27/24 19:10 MS 08/27/24 18:22 1,000 MLS/HR Sucralfate 1 gm ONCE ONCE PO 08/27/24 14:30 08/27/24 14:31 DC 08/27/24 17:22 1 GM Assessment/Plan Assessment/Plan # Sepsis due to colitis -Patient having similar symptoms before and having multiple admission -During admission, HR 103, RR 22, leukocytosis with left shift (WBC 14.9, neutrophil 86.2) -CT abd and plvis w/o contrast: Concentric wall thickening throughout the colon, suggestive of infectious/inflammatory colitis. -EGD (09/04/2023): 1 cm sliding-type hiatal hernia with slightly irregular squamocolumnar junction no significant esophagitis, Mild gastropathy of the proximal stomach Minimal gastro-duodenitis with improvement in previously noted gastritis Pathology report : mild chronic inactive gastritis -Patient received IV ciprofloxacin and metronidazole in ED -TROPONIN <3 -Lipase 27 -Lactic acid 2.3>3.5, we will repeat lactic acid level -NSS IV 150 CC/HOURS -Ciprofloxacin 500 mg IV b.i.d. -Metronidazole 500 mg IV q.8h -Inflammatory bowel disease panel ordered -FOLLOW BLOOD CULTURE AND URINE CULTURE -GI consult # Cannabis induced hyperemesis -Patient came with abdominal pain, nausea, vomiting -Currently use marijuana -UDS-cannabinoids positive -Ondansetron 4 mg iv q.6 -Metoclopramide 10 mg q.6 iv p.r.n. # Lactic acidosis -Lactic acid 2.3>3.5, - repeat lactic acid level -NSS IV 150 CC/HOURS # GERD -PANTOPRAZOLE 40 MG IV DAILY # Substance use disorders -Use marijuana -Counseling done, abstinence from substance use NPO GI prophylaxis: Pantoprazole 40 mg daily VTE prophylaxis: Patient ambulating Goals of care discussions, more than 26 minute spent. Full code status. Case discussed with Dr. Harmon Plan discussed with: Patient, Other (Nurse) My Orders Orders - TAMMY IRIZARRY RESIDENT Procedure Category Date Status Time Admit ADMIT 08/27/24 Transmitted 21:28 Nitroglycerin PHA 08/27/24 Logged Sublingual (Ntrostat 21:30 Npo (Nothing By DIET 08/28/24 Transmitted Mouth) Diet Breakfast Inflammatory Bowel LAB 08/27/24 Transmitted Disease-Ibd 21:40 * Gi Dvh Bundle Wrapper CONS 08/27/24 Transmitted 21:40 NS PHA 08/27/24 Transmitted 21:45 Ciprofloxacin PHA 08/27/24 Transmitted 400mg/200ml (Cipro Iv) 22:00 Metronidazole Ivpb PHA 08/27/24 Transmitted Flagyl 22:00 Pantoprazole PHA 08/28/24 Transmitted (Protonix) 10:00 Ondansetron Hcl PHA 08/28/24 Transmitted (Zofran) 00:00 Metoclopramide PHA 08/27/24 Transmitted Injection (Reglan 21:45 Date of Service: Aug 27, 2024 Billing Provider: LAMBERTO HARMON MD Common Visit Codes: [id number] INP/OBS CARE (HIGH) Secondary Visit Codes: [id number] CARE PLAN 30 MINUTES TAMMY IRIZARRY RESIDENT Aug 27, 2024 21:47
[2024-08-27] MEDS: METOCLOPRAMIDE HCL 5MG/ml INJ 2ml VIAL IV PRN (23:47)
[2024-08-27 23:50] VITALS: PULSE 87; O2SAT 97
[2024-08-28] VITALS (8 sets, daily range): BP systolic 125–149; BP diastolic 67–90; PULSE 63–93; RESP 18–22; TEMP 97.8–99.8; O2SAT 97–98
[2024-08-28] MEDS: ONDANSETRON HCL 4 MG/2 ML VIAL IV SCH (00:35)
[2024-08-28] MEDS ORDERED: ONDA-180 PO (03:53)
[2024-08-28] MEDS: CIPROFLOXACIN 400MG/200ML 200 ML IV SCH (04:24)
[2024-08-28 07:31] LABS: Alanine Aminotransferase 18 U/L (7-40); Albumin 4.4 g/dL (3.2-4.8); Alkaline Phosphatase 54 U/L (46-116); Anion Gap 12 (5-15); BUN/Creatinine Ratio 11.8 (10.0-20.0); Blood Urea Nitrogen 10 mg/dL (9-23); Calcium 9.0 mg/dL (8.7-10.4); Carbon Dioxide 22 mmol/L (20-31); Sodium 142 mmol/L (136-145); Total Protein 6.5 g/dL (5.7-8.2)
[2024-08-28 07:35] LABS: Bilirubin, Total 2.0 mg/dL (0.2-1.0); Chloride 108 mmol/L (98-107); Glucose 109 mg/dL (74-106); Potassium 3.4 mmol/L (3.5-5.1)
[2024-08-28] MEDS: LORazepam 2MG/ML-1ML VIAL IV ONE (10:15)
[2024-08-28] MEDS: D5W/SOD CHL 0.45% 1,000 ML IV SCH (10:35)
[2024-08-28] MEDS: PANTOPRAZOLE 40 MG/10 ML VIAL INJ IV SCH (10:35)
--- NOTE | 2024-08-28 11:14 | DVHPNRES ---
Progress Note Date Seen: Aug 28, 2024 Resident Creating Document: REKHA MELGAR RESIDENT Has the PT tested + for MRSA If YES, has PT been informed?: No Medical Necessity Reason Pt with a Central, PICC or Fol: No Subjective Review of Systems This is a 29-year-old male with past medical history of Anxiety, GERD, Asthma, kidney stone, substance abuse came to ER with the complain of vomiting for last 3 days which is worsen day by day. The patient tried Zofran and Protonix which is prescribed by GI doctor does not help. Patient also complain of upper abdominal pain which is intermittent, localized, sharp and crampy, 9/10 intensity, worsen with vomiting. He had low-grade fever and diarrhea for 3 days, passage jelly like stool treatment but not mixed with blood. Patient having multiple admission with similar symptom and last discharged from [facility] 08/15/2024. EGD (09/04/2023)-1 cm sliding-type hiatal hernia with slightly irregular squamocolumnar junction no significant esophagitis, Mild gastropathy of the proximal stomach,Minimal gastro-duodenitis with improvement in previously noted gastritis. Denies any cough, SOB, headache, dysuria, vertigo. No recent history of sick contact, eat street food or recent travel. 08/28/24. The patient was examined at bedside today, vital signs were reviewed, the patient complains of nausea, vomit#3, diarrhea #2, epigastric abdominal pain and, anxiety. FOTB, C. Diff culture was ordered, also antiemetics. Patient will continue NPO, we will follow up closely. ROS: Constitutional: Yes: Fever (Low-grade fever); No: Chills, Sweats, Weakness, Malaise, Other Eyes: No Pain, Vision change, Conjunctivae inflammation, Eyelid inflammation, Other, Redness ENT: No Ear pain, Ear discharge, Nose pain, Nose discharge, Nose congestion, Mouth pain, Mouth swelling, Throat pain, Throat swelling, Other Respiratory: No Cough, Dry, Shortness of breath, SOB with excertion, Wheezing, Hemoptysis, Pleuritic Pain, Sputum, Wheezing, Other Cardiovascular: No Chest Pain, Palpitations, Orthopnea, Paroxysmal Noc. Dyspnea, Edema, Lt Headedness, Other Gastrointestinal: Nausea, Vomiting, Abdominal Pain, Diarrhea Genitourinary: No Dysuria, No Frequency, No Incontinence, No Hematuria, No Retention, No Other Musculoskeletal: No: other, neck pain, shoulder pain, arm pain, back pain, hand pain, leg pain, foot pain Skin: No: Rash, Lesions, Jaundice, Bruising, Other Neurological: No: Weakness, Numbness, Incoordination, Change in speech, Confusion, Seizures, Other Allergies: Fentanyl (Verified Allergy, Severe, 04/13/19) Objective vital signs Vital Sign Date Time Temp Pulse Resp B/P (MAP) Pulse Ox O2 Delivery O2 Flow Rate FiO2 08/28/24 09:00 98.3 63 18 125/67 (86) 98 98.3 08/28/24 03:22 Room Air* 0 21 Total Intake and Output 08/27/24 08/27/24 08/28/24 15:00 23:00 07:00 Intake Total 1150 ml 800 ml Balance 1150 ml 800 ml medications Current Medications Medications Dose Ordered Sig/Miller Route Start Time Stop Time Status Last Admin Dose Admin Nitroglycerin 0.4 mg Q5MINP PRN SL 08/27/24 21:30 Ciprofloxacin 200 ml @ 200 mls/hr Q12HR IV 08/28/24 06:00 08/28/24 10:35 200 MLS/HR Metronidazole 100 ml @ 100 mls/hr Q8HR IV 08/28/24 00:00 08/28/24 05:45 100 MLS/HR Pantoprazole Sodium 40 mg DAILY IV 08/28/24 10:00 08/28/24 10:35 40 MG Ondansetron HCl 4 mg Q6HR IV 08/28/24 00:00 08/28/24 05:44 4 MG Metoclopramide HCl 10 mg Q6HPRN PRN IV 08/27/24 21:45 08/28/24 03:36 10 MG Trazodone HCl 50 mg HS PO 08/28/24 22:00 Dextrose/Sodium Chloride 1,000 ml @ 100 mls/hr Q10H IV 08/28/24 08:45 08/28/24 10:35 100 MLS/HR Examination Physical Exam General Appearance: anxious Alert, Oriented X3, Cooperative HEENT: PERRLA, EOMI Respiratory: Clear to auscultation, Normal air movement Cardiovascular: Regular rate, Normal S1, Normal S2 Abdominal: Tender on deep palpation on epigastric region, no rebound, no rigidity. Extremities: No clubbing, No cyanosis, No edema, Normal pulses Skin: No significant lesion Neuro: Normal speech, Strength at 5/5 X4 ext laboratory and microbiology Laboratory Tests 08/28/24 06:38 08/27/24 15:21 Test 08/28/24 06:38 Range/Units Serum Glucose 109 H 74-106 mg/dL Problem List/Assessment/Plan Problem List/Assessment/Plan # Sepsis due to colitis -During admission, HR 103, RR 22, leukocytosis with left shift (WBC 14.9, neutrophil 86.2) -CT abd and plvis w/o contrast: Concentric wall thickening throughout the colon, suggestive of infectious/inflammatory colitis. -EGD (09/04/2023): 1 cm sliding-type hiatal hernia with slightly irregular squamocolumnar junction no significant esophagitis, Mild gastropathy of the proximal stomach Minimal gastro-duodenitis with improvement in previously noted gastritis Pathology report : mild chronic inactive gastritis -Patient received IV ciprofloxacin and metronidazole in ED -TROPONIN <3 -Lipase 27 -Lactic acid 2.3>3.5, we will repeat lactic acid level -NSS IV 150 CC/HOURS -Ciprofloxacin 500 mg IV b.i.d. -Metronidazole 500 mg IV q.8h -Inflammatory bowel disease panel ordered -FOLLOW BLOOD CULTURE AND URINE CULTURE -GI consult -SBOT # Cannabis induced hyperemesis -Patient came with abdominal pain, nausea, vomiting -Currently use marijuana -UDS-cannabinoids positive -Ondansetron 4 mg iv q.6 -Metoclopramide 10 mg q.6 iv p.r.n. #Gastroenteritis -Diarrhrea -IV fluids D5W/NS 100cc -Metronidazole 500mg/100ml IV -Ciprofloxacin 400mg/200ml # Lactic acidosis -Lactic acid 2.3>3.5, - repeat lactic acid level -NSS IV 150 CC/HOURS # GERD -PANTOPRAZOLE 40 MG IV DAILY # Substance use disorders -Use marijuana -Counseling done, abstinence from substance use #NPO GI prophylaxis: Pantoprazole 40 mg daily VTE prophylaxis: Patient ambulating Goals of care discussions, more than 35minute spent. Code Status: Full code. Case discussed with Plan discussed with: Patient, Other (Nurse) My Orders Plan discussed with: Patient Date of Service: Aug 28, 2024 Billing Provider: BRIA BECKHAM MD Common Visit Codes: [id number] INP/OBS CARE(HIGH) REKHA MELGAR RESIDENT Aug 28, 2024 11:14 BRIA BECKHAM MD Aug 31, 2024 00:11
--- NOTE | 2024-08-28 13:18 | DVHINCON2 ---
GI Consult Consult Note GI consult note Date of Consultation: 08/28/2024 Chief Complaint: Colitis Referring Physician: Dr. Rodriguez H&P: 29-year-old male with past medical history of GERD, asthma, kidney stone, subsequently use admitted to hospital with complains of nausea and vomiting for three days. Patient denies hematemesis. Also complaining of loose stool for the past three days, patient admits to having episodes 3-4 times of loose stool. No melena or red blood in stool. Patient has upper abdominal pain which is worse when he is throwing up Status post EGD DATE OF OPERATION: 09/04/23 PROCEDURE: Upper Endoscopy with biopsy. PREOPERATIVE INDICATION: The patient is a 28 -year-old male undergoing endoscopy for epigastric pain nausea and vomiting POSTOPERATIVE DIAGNOSES: 1. 1 cm sliding-type hiatal hernia with slightly irregular squamocolumnar junction no significant esophagitis 2. Mild gastropathy of the proximal stomach 3. Minimal gastroduodenitis with improvement in previously noted gastritis Pathology shows mild chronic inactive gastritis Status post colonoscopy gastro group three weeks ago within normal limits per patient Past Medical History: GERD, Asthma, Kidney Stones Past Surgical History: Tonsillectomy Social History: NO smoking, drinking ETOH Positive marijuana use Family History: Noncontributory Review of Systems: Constitutional: no fever, chill, weight loss HEENT: no eye pain, no hearing loss, no oral lesion, no scleral icterus Heart: no chest pain, no chest pressure Lung: no cough, no dyspnea with exertion Abdomen: see HPI Physical exam: General: NAD, AAOX3 Chest: lung chris clear to auscultation Heart: RRR, no murmur Abdomen: non-distended, no tenderness to palpation, +BS Labs: Labs Test 08/28/24 06:38 08/27/24 15:21 08/27/24 15:00 Range/Units Sodium Level 142 136-145 mmol/L Potassium Level 3.4 L 3.5-5.1 mmol/L Chloride Level 108 H 98-107 mmol/L Carbon Dioxide Level 22 20-31 mmol/L Anion Gap 12 5-15 Blood Urea Nitrogen 10 9-23 mg/dL Creatinine 0.85 0.700-1.30 mg/dL Glomerular Filtration Rate Calc 119 >90 mL/min BUN/Creatinine Ratio 11.8 10.0-20.0 Serum Glucose 109 H 74-106 mg/dL Hemoglobin A1c 4.9 <5.7 % A1C Lactic Acid Level 1.5 0.4-2.0 mmol/L Calcium Level 9.0 8.7-10.4 mg/dL Total Bilirubin 2.0 H 0.2-1.0 mg/dL Aspartate Amino Transferase (AST) 19 13-40 U/L Alanine Aminotransferase (ALT) 18 7-40 U/L Alkaline Phosphatase 54 46-116 U/L Total Protein 6.5 5.7-8.2 g/dL Albumin 4.4 3.2-4.8 g/dL Thyroid Stimulating Hormone (TSH) 0.59 0.55-4.78 uIU/mL White Blood Count 14.4 H 4.4-10.8 10^3/uL Red Blood Count 4.77 4.5-5.90 10^6/uL Hemoglobin 14.9 13.5-17.5 g/dL Hematocrit 44.6 41.0-53.0 % Mean Corpuscular Volume 93.6 80.0-100.0 fL Mean Corpuscular Hemoglobin 31.2 28.0-32.0 pg Mean Corpuscular Hemoglobin Concent 33.3 32.0-36.0 g/dL Red Cell Distribution Width 13.7 11.8-14.3 % Platelet Count 271 140-450 10^3/uL Mean Platelet Volume 7.1 6.9-10.8 fL Neutrophils (%) (Auto) 86.2 H 37.0-80.0 % Lymphocytes (%) (Auto) 8.1 L 10.0-50.0 % Monocytes (%) (Auto) 5.3 0.0-12.0 % Eosinophils (%) (Auto) 0.1 0.0-7.0 % Basophils (%) (Auto) 0.3 0.0-2.0 % Neutrophils # (Auto) 12.4 H 1.6-8.6 10 ^3/uL Lymphocytes # (Auto) 1.2 0.4-5.4 10 ^3/uL Monocytes # (Auto) 0.8 0-1.3 10 ^3/uL Eosinophils # (Auto) 0 0-0.8 10 ^3/uL Basophils # (Auto) 0 0-0.2 10 ^3/uL Nucleated Red Blood Cells 0.0 % Troponin I High Sensitivity < 3 L </=54 ng/L Lipase 27 12-53 U/L Urine Color Yellow Yellow Urine Clarity Clear Clear Urine pH 7.5 5.0-9.0 Urine Specific [place] 1.044 H 1.001-1.035 Urine Protein 1+ H Negative Urine Ketones 1+ H Negative Urine Blood Trace H Negative /uL Urine Nitrite Negative Negative Urine Bilirubin Negative Negative Urine Urobilinogen 2 H Negative mg/dL Urine Leukocyte Esterase Negative Negative /uL Urine RBC 22 0 - 3 /hpf Urine Microscopic WBC 3 0-3 /HPF Urine Squamous Epithelial Cells None seen <5 /hpf Urine Bacteria None seen None Seen /hpf Urine Mucus Few None Seen Urine Glucose Normal Normal mg/dL Urine Opiates Screen Neg NEGATIVE Urine Fentanyl Screen Neg NEGATIVE Urine Barbiturates Screen Neg NEGATIVE Urine Phencyclidine Screen Neg NEGATIVE Urine Amphetamines Screen Neg NEGATIVE Urine Benzodiazepines Screen Neg NEGATIVE Urine Cocaine Screen Neg NEGATIVE Urine Cannabinoids Screen Pos NEGATIVE Imaging: CT abdomen pelvis IMPRESSION: 1. Concentric wall thickening throughout the colon, suggestive of infectious/inflammatory colitis. Assessment: Abdominal pain Diarrhea Possible colitis Plan: - discussed with Dr. Galarza Stool for bacterial culture and C diff Monitor labs Continue antibiotics Clear liquid diet We will continue to follow patient Thank you for this consult Date of Service: Aug 28, 2024 Billing Provider: OLEG GUEVARA Common Visit Codes: CONSULT ONLY Consultation Codes: [id number] CONSULT <60MIN OLEG GUEVARA Aug 28, 2024 13:18
[2024-08-28] MEDS: PROCHLORPERAZINE EDISYLATE 5 MG/ML 2ML VIAL IV PRN (14:28)
[2024-08-28] MEDS: LORazepam 2MG/ML-1ML VIAL IV SCH (18:16)
[2024-08-29] VITALS (9 sets, daily range): BP systolic 116–149; BP diastolic 50–91; PULSE 53–80; RESP 16–18; TEMP 98.5–100.1; O2SAT 94–99
[2024-08-29 05:58] LABS: Hematocrit 35.6 % (41.0-53.0); Hemoglobin 12.1 g/dL (13.5-17.5); Mean Corpuscular Hemoglobin 31.4 pg (28.0-32.0); Mean Corpuscular Volume 92.3 fL (80.0-100.0); Nucleated Red Blood Cells % 0.1 %
[2024-08-29 06:09] LABS: Alanine Aminotransferase 18 U/L (7-40); Albumin 4.2 g/dL (3.2-4.8); Alkaline Phosphatase 48 U/L (46-116); Anion Gap 9 (5-15); BUN/Creatinine Ratio 11.8 (10.0-20.0); Blood Urea Nitrogen 10 mg/dL (9-23); Calcium 9.6 mg/dL (8.7-10.4); Carbon Dioxide 25 mmol/L (20-31); Chloride 105 mmol/L (98-107); Sodium 139 mmol/L (136-145); Total Protein 6.2 g/dL (5.7-8.2)
[2024-08-29 06:10] LABS: Potassium 3.4 mmol/L (3.5-5.1)
[2024-08-29 06:11] LABS: Bilirubin, Total 1.9 mg/dL (0.2-1.0); Glucose 110 mg/dL (74-106)
[2024-08-29] MEDS: FLORASTOR (S. BOULARDII) 250 MG CAP PO SCH (09:52)
--- NOTE | 2024-08-29 09:58 | DVH ---
Exam: XY KUB ABDOMEN SINGLE VIEW Indication: r/o obstruction, hyperactivr bowel Comparison: XY KUB ABDOMEN SINGLE VIEW on DOS: 09/02/23 Technique: 1 radiographic views of the abdomen. Findings: Nonobstructive bowel gas pattern noted. There is no definite evidence for pneumoperitoneum. No abnormal calcifications noted. Impression: Nonobstructive bowel gas pattern noted.
[2024-08-29] MEDS ORDERED: PPN PER PHARMACY 0 ML IV SCH (12:00)
[2024-08-29] MEDS: cefTRIAXone 1GM/50ML D5W 50 ML IV SCH (12:17)
[2024-08-29 13:52] LABS: Magnesium 1.6 mg/dL (1.6-2.6)
[2024-08-29] MEDS: GASTROGRAFIN 120 ML SOL ONE (14:12)
[2024-08-29] MEDS: METOCLOPRAMIDE HCL 5MG/ml INJ 2ml VIAL IV ONE (14:34)
[2024-08-29] MEDS: POTASSIUM CHL 20MEQ/100ML 100 ML IV ONE (15:26)
[2024-08-29] MEDS ORDERED: MAGNESIUM SULFATE 1GM/100ML 100 ML IV ONE (15:30)
--- NOTE | 2024-08-29 15:55 | DVHPNRES ---
Progress Note Date Seen: Aug 29, 2024 Resident Creating Document: REKHA MELGAR RESIDENT Has the PT tested + for MRSA If YES, has PT been informed?: No Medical Necessity Reason Pt with a Central, PICC or Fol: No Subjective Review of Systems This is a 29-year-old male with past medical history of Anxiety, GERD, Asthma, kidney stone, substance abuse came to ER with the complain of vomiting for last 3 days which is worsen day by day. The patient tried Zofran and Protonix which is prescribed by GI doctor does not help. Patient also complain of upper abdominal pain which is intermittent, localized, sharp and crampy, 9/10 intensity, worsen with vomiting. He had low-grade fever and diarrhea for 3 days, passage jelly like stool treatment but not mixed with blood. Patient having multiple admission with similar symptom and last discharged from [facility] 08/15/2024. EGD (09/04/2023)-1 cm sliding-type hiatal hernia with slightly irregular squamocolumnar junction no significant esophagitis, Mild gastropathy of the proximal stomach,Minimal gastro-duodenitis with improvement in previously noted gastritis. Denies any cough, SOB, headache, dysuria, vertigo. No recent history of sick contact, eat street food or recent travel. 08/28/24. The patient was examined at bedside today, vital signs were reviewed, the patient complains of nausea, vomit#3, diarrhea #2, epigastric abdominal pain and, anxiety. FOTB, C. Diff culture was ordered, also antiemetics. Patient will continue NPO, only medications, we will follow up closely. 08/29/24: The patient was examined at bedside today, vital signs were reviewed, the patient complains of nausea, vomit#2, diarrhea #1, epigastric abdominal pain insomnia and, anxiety. FOTB reports negative for blood, C. Diff test is pending. Patient will continue NPO, only medications. Ciprofloxacin was stopped and ceftriaxone 1gr was started, GI is on board. We will follow up this patient closely. ROS: Constitutional: Yes: Fever (Low-grade fever); No: Chills, Sweats, Weakness, Malaise, Other Eyes: No Pain, Vision change, Conjunctivae inflammation, Eyelid inflammation, Other, Redness ENT: No Ear pain, Ear discharge, Nose pain, Nose discharge, Nose congestion, Mouth pain, Mouth swelling, Throat pain, Throat swelling, Other Respiratory: No Cough, Dry, Shortness of breath, SOB with excertion, Wheezing, Hemoptysis, Pleuritic Pain, Sputum, Wheezing, Other Cardiovascular: No Chest Pain, Palpitations, Orthopnea, Paroxysmal Noc. Dyspnea, Edema, Lt Headedness, Other Gastrointestinal: Nausea, Vomiting, Abdominal Pain, Diarrhea. Genitourinary: No Dysuria, No Frequency, No Incontinence, No Hematuria, No Retention, No Other Musculoskeletal: No: other, neck pain, shoulder pain, arm pain, back pain, hand pain, leg pain, foot pain Skin: No: Rash, Lesions, Jaundice, Bruising, Other Neurological: No: Weakness, Numbness, Incoordination, Change in speech, Confusion, Seizures, Other Allergies: Fentanyl (Verified Allergy, Severe, 04/13/19) Objective vital signs Vital Sign Date Time Temp Pulse Resp B/P (MAP) Pulse Ox O2 Delivery O2 Flow Rate FiO2 08/29/24 12:43 99.0 53 18 149/91 (110) 99 99.0 08/29/24 08:00 Room Air* 0 21 Total Intake and Output 08/28/24 08/28/24 08/29/24 15:00 23:00 07:00 Intake Total 250 ml 1370 ml 700 ml Output Total 300 ml Balance 250 ml 1370 ml 400 ml medications Current Medications Medications Dose Ordered Sig/Miller Route Start Time Stop Time Status Last Admin Dose Admin Nitroglycerin 0.4 mg Q5MINP PRN SL 08/27/24 21:30 Metronidazole 100 ml @ 100 mls/hr Q8HR IV 08/28/24 00:00 08/29/24 05:51 100 MLS/HR Pantoprazole Sodium 40 mg DAILY IV 08/28/24 10:00 08/29/24 09:52 40 MG Ondansetron HCl 4 mg Q6HR IV 08/28/24 00:00 Hold 08/29/24 12:11 4 MG Dextrose/Sodium Chloride 1,000 ml @ 100 mls/hr Q10H IV 08/28/24 08:45 08/29/24 15:26 100 MLS/HR Saccharomyces Boulardii 250 mg DAILY PO 08/29/24 10:00 08/29/24 09:52 250 MG Lorazepam 0.5 mg Q6HP IV 08/28/24 18:00 08/29/24 12:11 0.5 MG Trazodone HCl 100 mg HS PO 08/29/24 22:00 Melatonin 5 mg HS PO 08/29/24 22:00 Amino Acids 0 ml @ 0 mls/hr PER PHARMACY IV 08/29/24 12:00 Metoclopramide HCl 5 mg Q8HR IV 08/29/24 14:00 Hold Ceftriaxone Sodium 50 ml @ 100 mls/hr DAILY@09 IV 08/29/24 12:08 08/29/24 12:17 100 MLS/HR Fat Emulsion Intravenous 50 ml/ Sodium Chloride 10 meq/Potassium Acetate 20 meq/ Multivitamins 10 ml/Amino Acids/ Dextrose/Purified Water 1,072.5 ml @ 44 mls/hr [id number] IV 08/29/24 22:00 08/30/24 21:59 Magnesium Sulfate/ Dextrose 100 ml @ 100 mls/hr Q1HR IV 08/29/24 16:00 08/29/24 17:59 Examination Physical Exam General Appearance: Anxious, alert, Oriented X3, Cooperative HEENT: PERRLA, EOMI Respiratory: Clear to auscultation, Normal air movement Cardiovascular: Regular rate, Normal S1, Normal S2 Abdominal: Tender on deep palpation on epigastric region, no rebound, no rigidity. Extremities: No clubbing, No cyanosis, No edema, Normal pulses Skin: No significant lesion Neuro: Normal speech, Strength at 5/5 X4 ext laboratory and microbiology Laboratory Tests 08/29/24 05:05 Test 08/29/24 05:05 Range/Units Serum Glucose 110 H 74-106 mg/dL Problem List/Assessment/Plan Problem List/Assessment/Plan # Sepsis due to colitis -During admission, HR 103, RR 22, leukocytosis with left shift (WBC 14.9, neutrophil 86.2) -CT abd and plvis w/o contrast: Concentric wall thickening throughout the colon, suggestive of infectious/inflammatory colitis. -EGD (09/04/2023): 1 cm sliding-type hiatal hernia with slightly irregular squamocolumnar junction no significant esophagitis, Mild gastropathy of the proximal stomach Minimal gastro-duodenitis with improvement in previously noted gastritis Pathology report : mild chronic inactive gastritis -Patient received IV ciprofloxacin and metronidazole in ED -TROPONIN <3 -Lipase 27 -Lactic acid 2.3>3.5, we will repeat lactic acid level -NSS IV 150 CC/HOURS -Ciprofloxacin 500 mg IV b.i.d. -Metronidazole 500 mg IV q.8h -Inflammatory bowel disease panel ordered -FOLLOW BLOOD CULTURE AND URINE CULTURE -GI consult -SBOT # Cannabis induced hyperemesis -Patient came with abdominal pain, nausea, vomiting -Currently use marijuana -UDS-cannabinoids positive -Ondansetron 4 mg iv q.6 -Metoclopramide 10 mg q.6 iv p.r.n. #Gastroenteritis -Diarrhrea -IV fluids D5W/NS 100cc -Metronidazole 500mg/100ml IV -Ciprofloxacin 400mg/200ml # Lactic acidosis -Lactic acid 2.3>3.5, - repeat lactic acid level -NSS IV 150 CC/HOURS # GERD -PANTOPRAZOLE 40 MG IV DAILY # Substance use disorders -Use marijuana -Counseling done, abstinence from substance use #NPO GI prophylaxis: Pantoprazole 40 mg daily VTE prophylaxis: Patient ambulating #Anxiety disorder #Insomnia -Mirtazapin 15mg -trazodone 5mg -melatonin 5mg Goals of care discussions, more than 35minute spent. Code Status: Full code. Case discussed with Plan discussed with: Patient, patient agrees with the plan. Plan discussed with: Patient My Orders My Orders Orders - REKHA MELGAR RESIDENT Procedure Category Date Status Time Npo (Nothing By DIET 08/29/24 Transmitted Mouth) Diet Lunch Magnesium LAB 08/30/24 Verified 04:00 Complete Blood Count LAB 08/30/24 Verified 04:00 Comprehensive LAB 08/30/24 Verified Metabolic Panel 04:00 Ceftriaxone 1gm/50ml PHA 08/29/24 In Process D5w (Rocephin) 12:08 Stool Bacterial CHIDI 08/29/24 Logged Culture 15:35 Date of Service: Aug 29, 2024 Billing Provider: BRIA BECKHAM MD Common Visit Codes: [id number] INP/OBS CARE(HIGH) REKHA MELGAR RESIDENT Aug 29, 2024 15:55 BRIA BECKHAM MD Aug 31, 2024 00:33
[2024-08-29] MEDS: MAGNESIUM SULFATE 1GM/100ML 100 ML IV SCH (17:40)
--- NOTE | 2024-08-29 18:01 | DVH ---
Procedure: XY SMALL BOWEL SERIES-W GASTROGRA Reason for study/Clinical History: no flatus, N, V Comparison Study: None Technique: Single contrast small bowel series performed. FINDINGS/IMPRESSION: Initial environmental technology professor view of the abdomen and pelvis appears demonstrates no acute process. Contrast is identified within the colon by 30 minutess. This represents a normal small bowel transit time.
[2024-08-29] MEDS: MELATONIN 5 MG TAB PO SCH (21:19)
--- NOTE | 2024-08-29 22:22 | DVHPN2 ---
Progress Note - Dictate Date Seen: Aug 29, 2024 (Late entryPatient seen at bedside at 10:00 a.m.) Has the PT tested + for MRSA If YES, has PT been informed?: No Medical Necessity Reason Pt with a Central, PICC or Fol: No Subjective Patient seen at bedside resting comfortably Complains of mild abdominal pain and some diarrhea Patient had a colonoscopy at the gastro [facility] about two weeks ago and apparently some small bnign colon polyps were removed Patient was questioning if he was going to have another procedure at this time vital signs Vital Sign Date Time Temp Pulse Resp B/P (MAP) Pulse Ox O2 Delivery O2 Flow Rate FiO2 08/29/24 21:00 100.1 68 17 116/78 (91) 96 100.1 08/29/24 20:11 Room Air* 0 21 Total Intake and Output 08/28/24 08/28/24 08/29/24 15:00 23:00 07:00 Intake Total 250 ml 1370 ml 700 ml Output Total 300 ml Balance 250 ml 1370 ml 400 ml medications Current Medications Medications Dose Ordered Sig/Miller Route Start Time Stop Time Status Last Admin Dose Admin Nitroglycerin 0.4 mg Q5MINP PRN SL 08/27/24 21:30 Metronidazole 100 ml @ 100 mls/hr Q8HR IV 08/28/24 00:00 08/29/24 21:19 100 MLS/HR Pantoprazole Sodium 40 mg DAILY IV 08/28/24 10:00 08/29/24 09:52 40 MG Dextrose/Sodium Chloride 1,000 ml @ 100 mls/hr Q10H IV 08/28/24 08:45 08/29/24 15:26 100 MLS/HR Saccharomyces Boulardii 250 mg DAILY PO 08/29/24 10:00 08/29/24 09:52 250 MG Lorazepam 0.5 mg Q6HP IV 08/28/24 18:00 08/29/24 17:40 0.5 MG Trazodone HCl 100 mg HS PO 08/29/24 22:00 Melatonin 5 mg HS PO 08/29/24 22:00 08/29/24 21:19 5 MG Amino Acids 0 ml @ 0 mls/hr PER PHARMACY IV 08/29/24 12:00 Metoclopramide HCl 5 mg Q8HR IV 08/29/24 14:00 Ceftriaxone Sodium 50 ml @ 100 mls/hr DAILY@09 IV 08/29/24 12:08 08/29/24 12:17 100 MLS/HR Fat Emulsion Intravenous 50 ml/ Sodium Chloride 10 meq/Potassium Acetate 20 meq/ Multivitamins 10 ml/Amino Acids/ Dextrose/Purified Water 1,072.5 ml @ 44 mls/hr [id number] IV 08/29/24 22:00 08/30/24 21:59 Ondansetron HCl 4 mg Q6HR PRN IV 08/29/24 16:00 objective General: NAD, AAOX3 Chest: lung chris clear to auscultation Heart: RRR, no murmur Abdomen: non-distended, no tenderness to palpation, +BS laboratory and microbiology Laboratory Tests 08/29/24 05:05 Test 08/29/24 05:05 Range/Units Serum Glucose 110 H 74-106 mg/dL Problems(with codes): (1) Cannabinoid hyperemesis syndrome (2) Colitis (3) Abnormal finding on CT scan Prognosis Assessment and plan Patient has lactic acidosis has improved Stool for WBCs negative and stool for occult blood was negative and CRP is normal which points against active colitis Patient's CT findings are likely related to recent bowel prep and colonoscopy Advance diet as tolerated Continue supportive care Ppi for chronic inactive gastritis DC aspirin NSAIDs smoking alcohol Patient was counseled against marijuana use Dietary Evaluation Review Recommendations by RD: Increase Calorie Intake Comments: 1) Increase TPN rate to meet at least 75% of estimated daily needs 2) Advance to low-fat diet when medically feasible, pending ST approval 3) Follow-up with gastroenterology 4) Continue to monitor I&O, labs, and skin integrity Expected Outcomes/Goals: 1) TPN to meet at least 75% of estimated daily needs 2) diet to advance 3) labs to improve 4) GI symptoms to resolve 5) f/u in 2-3 days Plan discussed with: Patient, Other (Tawana Baker) JETT MURO MD Aug 29, 2024 22:22
[2024-08-29] MEDS: METOCLOPRAMIDE HCL 5MG/ml INJ 2ml VIAL IV SCH (22:58)
[2024-08-29] MEDS: MIRTAZAPINE 30 MG TAB PO ONE (22:58)
[2024-08-29] MEDS: [UNRECOGNIZED DRUG - OTHER] IV NR (23:03)
[2024-08-29] MEDS: FAT EMULSION IV NR (23:03)
[2024-08-29] MEDS: POTASSIUM ACETATE IV NR (23:03)
[2024-08-29] MEDS: SODIUM CHLORIDE IV NR (23:03)
[2024-08-30] VITALS (8 sets, daily range): BP systolic 124–140; BP diastolic 78–95; PULSE 51–79; RESP 17–20; TEMP 98.2–101; O2SAT 96–98
[2024-08-30] MEDS: ONDANSETRON HCL 4 MG/2 ML VIAL IV PRN (03:29)
[2024-08-30 06:09] LABS: Hematocrit 36.6 % (41.0-53.0); Hemoglobin 12.6 g/dL (13.5-17.5); Mean Corpuscular Hemoglobin 31.9 pg (28.0-32.0); Mean Corpuscular Volume 92.9 fL (80.0-100.0); Nucleated Red Blood Cells % 0.0 %
[2024-08-30 06:33] LABS: Alanine Aminotransferase 17 U/L (7-40); Albumin 4.3 g/dL (3.2-4.8); Alkaline Phosphatase 47 U/L (46-116); BUN/Creatinine Ratio 14.3 (10.0-20.0); Blood Urea Nitrogen 11 mg/dL (9-23); Calcium 8.9 mg/dL (8.7-10.4); Chloride 104 mmol/L (98-107); Glucose 100 mg/dL (74-106); Magnesium 2.0 mg/dL (1.6-2.6); Sodium 137 mmol/L (136-145); Total Protein 6.4 g/dL (5.7-8.2)
[2024-08-30 06:34] LABS: Bilirubin, Total 2.2 mg/dL (0.2-1.0); Potassium 3.2 mmol/L (3.5-5.1)
[2024-08-30 06:43] LABS: Anion Gap 7 (5-15); Carbon Dioxide 26 mmol/L (20-31)
[2024-08-30] MEDS: POTASSIUM CHL 20MEQ/100ML 100 ML IV ONE (08:53)
[2024-08-30] MEDS ORDERED: DEXTROSE (50%) 50ML SYRG IV SCH (12:00)
[2024-08-30] MEDS: InsuLIN REG 1unit/0.01ml Soln (100units/ml) SC SCH (12:00)
[2024-08-30] MEDS: ACCU-CHEK COMFORT CURVE STRIP VI SCH (12:06)
[2024-08-30] MEDS: LACTATED RINGER'S 1,000 ML IV SCH (13:09)
--- NOTE | 2024-08-30 16:25 | DVHPNRES ---
Progress Note Date Seen: Aug 30, 2024 Resident Creating Document: EMMANUELLE RODRIGUEZ RESIDENT Has the PT tested + for MRSA If YES, has PT been informed?: No Medical Necessity Reason Pt with a Central, PICC or Fol: No Subjective Review of Systems Ángel Miguelito Gregg is a 29-year-old male with past medical history of Anxiety, GERD, Asthma, kidney stone, substance abuse came to ER with the complain of vomiting for last 3 days which is worsen day by day. The patient tried Zofran and Protonix which is prescribed by GI doctor does not help. Patient also complain of upper abdominal pain which is intermittent, localized, sharp and crampy, 9/10 intensity, worsen with vomiting. He had low-grade fever and diarrhea for 3 days, passage jelly like stool treatment but not mixed with blood. Patient having multiple admission with similar symptom and last discharged from [facility] 08/15/2024. EGD (09/04/2023)-1 cm sliding-type hiatal hernia with slightly irregular squamocolumnar junction no significant esophagitis, Mild gastropathy of the proximal stomach,Minimal gastro-duodenitis with improvement in previously noted gastritis. Denies any cough, SOB, headache, dysuria, vertigo. No recent history of sick contact, eat street food or recent travel. 08/28/24. Vital signs were reviewed, the patient complains of nausea, vomit#3, diarrhea #2, epigastric abdominal pain and, anxiety. FOTB, C. Diff culture was ordered, also antiemetics. Patient will continue NPO, only medications, we will follow up closely. 08/29/24: Vital signs were reviewed, the patient complains of nausea, vomit#2, diarrhea #1, epigastric abdominal pain insomnia and, anxiety. FOTB reports negative for blood, C. Diff test is pending. Patient will continue NPO, only medications. Ciprofloxacin was stopped and ceftriaxone 1gr was started, GI is on board. We will follow up this patient closely. 08/30/24: Patient was examined at bedside today. Complains of abdominal pain 7 on 10. Continues to complain of mild nausea; No vomiting or diarrhea today. Stool from previous diarrheal episodes looked fatty, foul-smelling. Will do ova and parasite exam. His labs show decreased hemoglobin, hypokalemia, increased T bili. CT abdomen is positive for colitis. He underwent EGD today showing 1 cm sliding hernia with irregular squamocolumnar junction, Mild gastropathy, Minimum gastroduodenitis. We will do a trial of clear liquid diet today. The trial fails we might have to consider switching from PPN to TPN. Continue course, continue monitoring and managing. ROS: Constitutional: Yes: Fever (Low-grade fever); No: Chills, Sweats, Weakness, Malaise, Other Eyes: No Pain, Vision change, Conjunctivae inflammation, Eyelid inflammation, Other, Redness ENT: No Ear pain, Ear discharge, Nose pain, Nose discharge, Nose congestion, Mouth pain, Mouth swelling, Throat pain, Throat swelling, Other Respiratory: No Cough, Dry, Shortness of breath, SOB with excertion, Wheezing, Hemoptysis, Pleuritic Pain, Sputum, Wheezing, Other Cardiovascular: No Chest Pain, Palpitations, Orthopnea, Paroxysmal Noc. Dyspnea, Edema, Lt Headedness, Other Gastrointestinal: Nausea, Vomiting, Abdominal Pain, Diarrhea. Genitourinary: No Dysuria, No Frequency, No Incontinence, No Hematuria, No Retention, No Other Musculoskeletal: No: other, neck pain, shoulder pain, arm pain, back pain, hand pain, leg pain, foot pain Skin: No: Rash, Lesions, Jaundice, Bruising, Other Neurological: No: Weakness, Numbness, Incoordination, Change in speech, Confusion, Seizures, Other Allergies: Fentanyl (Verified Allergy, Severe, 04/13/19) Objective vital signs Vital Sign Date Time Temp Pulse Resp B/P (MAP) Pulse Ox O2 Delivery O2 Flow Rate FiO2 08/30/24 12:26 98.2 51 20 140/95 (110) 98 98.2 08/30/24 08:00 Room Air* 0 21 Total Intake and Output 08/29/24 08/29/24 08/30/24 15:00 23:00 07:00 Intake Total 50 ml 1550 ml 300 ml Balance 50 ml 1550 ml 300 ml medications Current Medications Medications Dose Ordered Sig/Miller Route Start Time Stop Time Status Last Admin Dose Admin Nitroglycerin 0.4 mg Q5MINP PRN SL 08/27/24 21:30 Metronidazole 100 ml @ 100 mls/hr Q8HR IV 08/28/24 00:00 08/30/24 14:01 100 MLS/HR Pantoprazole Sodium 40 mg DAILY IV 08/28/24 10:00 08/30/24 10:25 40 MG Saccharomyces Boulardii 250 mg DAILY PO 08/29/24 10:00 08/30/24 10:25 250 MG Lorazepam 0.5 mg Q6HP IV 08/28/24 18:00 08/30/24 12:10 0.5 MG Trazodone HCl 100 mg HS PO 08/29/24 22:00 Melatonin 5 mg HS PO 08/29/24 22:00 08/29/24 21:19 5 MG Amino Acids 0 ml @ 0 mls/hr PER PHARMACY IV 08/29/24 12:00 Metoclopramide HCl 5 mg Q8HR IV 08/29/24 14:00 08/30/24 14:03 5 MG Ceftriaxone Sodium 50 ml @ 100 mls/hr DAILY@09 IV 08/29/24 12:08 08/29/24 12:17 100 MLS/HR Fat Emulsion Intravenous 50 ml/ Sodium Chloride 10 meq/Potassium Acetate 20 meq/ Multivitamins 10 ml/Amino Acids/ Dextrose/Purified Water 1,072.5 ml @ 44 mls/hr [id number] IV 08/29/24 22:00 08/30/24 21:59 08/29/24 23:03 44 MLS/HR Ondansetron HCl 4 mg Q6HR PRN IV 08/29/24 16:00 08/30/24 03:29 4 MG Diagnostic Test (Pha) 1 strip Q6HR 08/30/24 12:00 08/30/24 12:06 1 STRIP Insulin Human Regular FOLLOW SLIDING SCALE Q6HR SC 08/30/24 12:00 Dextrose 50 ml UD IV 08/30/24 12:00 Fat Emulsion Intravenous 100 ml/Sodium Chloride 40 meq/ Potassium Acetate 20 meq/Potassium Phosphate 40 meq/ Calcium Gluconate 2.32 meq/ Magnesium Sulfate 8 meq/ Multivitamins 10 ml/Amino Acids/ Dextrose/Purified Water 1,446.0801 ml @ 60 mls/hr [id number] IV 08/30/24 22:00 08/31/24 21:59 Lactated Ringer's 1,000 ml @ 75 mls/hr [id number] IV 08/30/24 12:45 08/30/24 13:09 75 MLS/HR Examination General Appearance: Anxious, alert, Oriented X3, Cooperative HEENT: PERRLA, EOMI Respiratory: Clear to auscultation, Normal air movement Cardiovascular: Regular rate, Normal S1, Normal S2 Abdominal: Tender on deep palpation on epigastric region, no rebound, no rigidity. Extremities: No clubbing, No cyanosis, No edema, Normal pulses Skin: No significant lesion Neuro: Normal speech, Strength at 5/5 X4 ext laboratory and microbiology Laboratory Tests 08/30/24 05:20 Test 08/30/24 05:20 Range/Units Serum Glucose 100 74-106 mg/dL Microbiology Date/Time Source Procedure Growth Status 08/29/24 13:04 Stool Stool Culture - Preliminary Resulted 08/29/24 13:04 Stool Shiga Toxin I & II Pending Resulted Problem List/Assessment/Plan Problem List/Assessment/Plan # Sepsis due to colitis #Leukocytosis #Neutrophilia -During admission, HR 103, RR 22, leukocytosis with left shift (WBC 14.9, neutrophil 86.2) -CT abd and plvis w/o contrast: Concentric wall thickening throughout the colon, suggestive of infectious/inflammatory colitis. -EGD (09/04/2023): 1 cm sliding-type hiatal hernia with slightly irregular squamocolumnar junction no significant esophagitis, Mild gastropathy of the proximal stomach Minimal gastro-duodenitis with improvement in previously noted gastritis Pathology report : mild chronic inactive gastritis -Patient received IV ciprofloxacin and metronidazole in ED -TROPONIN <3 -Lipase 27 -Lactic acid 2.3>3.5, we will repeat lactic acid level -NSS IV 150 CC/HOURS -Ciprofloxacin 500 mg IV b.i.d. -Metronidazole 500 mg IV q.8h -Inflammatory bowel disease panel ordered -FOLLOW BLOOD CULTURE AND URINE CULTURE -GI consult -SBOT # Cannabis induced hyperemesis -Patient came with abdominal pain, nausea, vomiting -Currently use marijuana -UDS-cannabinoids positive -Ondansetron 4 mg iv q.6 -Metoclopramide 10 mg q.6 iv p.r.n. #Intractable abdominal pain, nausea, vomiting, possible gastroenteritis -Diarrhrea -IV fluids D5W/NS switched to lactated ringer. -Metronidazole 500mg/100ml IV -Ciprofloxacin 400mg/200ml -C diff and cultures pending -ON parasite stool exam ordered -we will do a trial of clear liquids today. If the trial fails we might have to consider switching from PPN to TPN. # Lactic acidosis -Lactic acid 2.3>3.5, -Repeat lactic acid level -NSS IV 150 CC/HOURS # GERD -Continue Pantoprazole 40 mg IV daily # Substance use disorders -Use marijuana -Counseling done, abstinence from substance use #NPO GI prophylaxis: Pantoprazole 40 mg daily VTE prophylaxis: Patient ambulating #Anxiety disorder #Insomnia -Mirtazapin 15mg -trazodone 5mg -melatonin 5mg #Normochromic normocytic anemia, unspecified -Hemoglobin 12.6 #Sliding hiatal hernia -EGD shows 1 cm sliding hiatal hernia with irregular squamocolumnar junction. #Gastroduodenitis -Minimal gastroduodenitis seen on EGD #Hypokalemia -Managed with IV 40 mg KCl rider Goals of care discussions, more than 35minute spent. Code Status: Full code. Case discussed with Plan discussed with: Patient Dietary Evaluation Review Recommendations by RD: Increase Calorie Intake Comments: 1) Increase TPN rate to meet at least 75% of estimated daily needs 2) Advance to low-fat diet when medically feasible, pending ST approval 3) Follow-up with gastroenterology 4) Continue to monitor I&O, labs, and skin integrity Expected Outcomes/Goals: 1) TPN to meet at least 75% of estimated daily needs 2) diet to advance 3) labs to improve 4) GI symptoms to resolve 5) f/u in 2-3 days Date of Service: Aug 30, 2024 Billing Provider: BRIA BECKHAM MD Common Visit Codes: [id number] INP/OBS CARE(HIGH) EMMANUELLE RODRIGUEZ RESIDENT Aug 30, 2024 16:25 BRAI BECKHAM MD Aug 31, 2024 01:22
--- NOTE | 2024-08-30 18:08 | DVHPN2 ---
Progress Note - Dictate Date Seen: Aug 30, 2024 Has the PT tested + for MRSA If YES, has PT been informed?: No Medical Necessity Reason Pt with a Central, PICC or Fol: No Subjective Complains of mild abdominal pain and some nausea, no vomiting or diarrhea today Patient had a colonoscopy at the [facility] about two weeks ago and apparently some small bnign colon polyps were removed He underwent EGD in 03/14 today showing 1 cm sliding hernia with irregular squamocolumnar junction, Mild gastropathy, Minimum gastroduodenitis. vital signs Vital Sign Date Time Temp Pulse Resp B/P (MAP) Pulse Ox O2 Delivery O2 Flow Rate FiO2 08/30/24 16:21 98.4 57 17 131/82 (98) 97 98.4 08/30/24 08:00 Room Air* 0 21 Total Intake and Output 08/29/24 08/29/24 08/30/24 15:00 23:00 07:00 Intake Total 50 ml 1550 ml 300 ml Balance 50 ml 1550 ml 300 ml medications Current Medications Medications Dose Ordered Sig/Miller Route Start Time Stop Time Status Last Admin Dose Admin Nitroglycerin 0.4 mg Q5MINP PRN SL 08/27/24 21:30 Metronidazole 100 ml @ 100 mls/hr Q8HR IV 08/28/24 00:00 08/30/24 14:01 100 MLS/HR Pantoprazole Sodium 40 mg DAILY IV 08/28/24 10:00 08/30/24 10:25 40 MG Saccharomyces Boulardii 250 mg DAILY PO 08/29/24 10:00 08/30/24 10:25 250 MG Lorazepam 0.5 mg Q6HP IV 08/28/24 18:00 08/30/24 17:48 0.5 MG Trazodone HCl 100 mg HS PO 08/29/24 22:00 Melatonin 5 mg HS PO 08/29/24 22:00 08/29/24 21:19 5 MG Amino Acids 0 ml @ 0 mls/hr PER PHARMACY IV 08/29/24 12:00 Metoclopramide HCl 5 mg Q8HR IV 08/29/24 14:00 08/30/24 14:03 5 MG Ceftriaxone Sodium 50 ml @ 100 mls/hr DAILY@09 IV 08/29/24 12:08 08/29/24 12:17 100 MLS/HR Fat Emulsion Intravenous 50 ml/ Sodium Chloride 10 meq/Potassium Acetate 20 meq/ Multivitamins 10 ml/Amino Acids/ Dextrose/Purified Water 1,072.5 ml @ 44 mls/hr [id number] IV 08/29/24 22:00 08/30/24 21:59 08/29/24 23:03 44 MLS/HR Ondansetron HCl 4 mg Q6HR PRN IV 08/29/24 16:00 08/30/24 03:29 4 MG Diagnostic Test (Pha) 1 strip Q6HR 08/30/24 12:00 08/30/24 17:24 1 STRIP Insulin Human Regular FOLLOW SLIDING SCALE Q6HR SC 08/30/24 12:00 Dextrose 50 ml UD IV 08/30/24 12:00 Fat Emulsion Intravenous 100 ml/Sodium Chloride 40 meq/ Potassium Acetate 20 meq/Potassium Phosphate 40 meq/ Calcium Gluconate 2.32 meq/ Magnesium Sulfate 8 meq/ Multivitamins 10 ml/Amino Acids/ Dextrose/Purified Water 1,446.0801 ml @ 60 mls/hr [id number] IV 08/30/24 22:00 08/31/24 21:59 Lactated Ringer's 1,000 ml @ 75 mls/hr [id number] IV 08/30/24 12:45 08/30/24 13:09 75 MLS/HR objective General: NAD, AAOX3 Chest: lung chris clear to auscultation Heart: RRR, no murmur Abdomen: non-distended, no tenderness to palpation, +BS laboratory and microbiology Laboratory Tests 08/30/24 05:20 Test 08/30/24 05:20 Range/Units Serum Glucose 100 74-106 mg/dL Problems(with codes): (1) Cannabinoid hyperemesis syndrome (2) Abnormal finding on CT scan (3) Colitis (4) Nausea & vomiting (5) Cannabis hyperemesis syndrome concurrent with and due to cannabis abuse Prognosis Assessment and plan Patient has lactic acidosis has improved Stool for WBCs negative and stool for occult blood was negative and CRP is normal which points against active colitis Patient's CT findings are likely related to recent bowel prep and colonoscopy Stool tests that were ordered showed moderate growth of Gram-positive maida await final sensitivities, patient on IV antibiotics Advance diet as tolerated Continue supportive care ; Ppi for chronic inactive gastritis DC aspirin NSAIDs smoking alcohol Patient was counseled against marijuana use Dietary Evaluation Review Recommendations by RD: Increase Calorie Intake Comments: 1) Increase TPN rate to meet at least 75% of estimated daily needs 2) Advance to low-fat diet when medically feasible, pending ST approval 3) Follow-up with gastroenterology 4) Continue to monitor I&O, labs, and skin integrity Expected Outcomes/Goals: 1) TPN to meet at least 75% of estimated daily needs 2) diet to advance 3) labs to improve 4) GI symptoms to resolve 5) f/u in 2-3 days Plan discussed with: Patient JETT MURO MD Aug 30, 2024 18:08
[2024-08-30] MEDS: FAT EMULSION IV NR (22:38)
[2024-08-30] MEDS: POTASSIUM ACETATE IV NR (22:38)
[2024-08-30] MEDS: SODIUM CHLORIDE IV NR (22:38)
[2024-08-30] MEDS: [UNRECOGNIZED DRUG - OTHER] IV NR (22:38)
[2024-08-31 01:00] VITALS: BP 132/87; PULSE 62; RESP 16; TEMP 98; O2SAT 95
[2024-08-31 05:00] VITALS: BP 121/74; PULSE 57; RESP 18; TEMP 98.4; O2SAT 96
[2024-08-31] MEDS: HYDROcodone-ACET 5/325MG TAB PO ONE (05:03)
[2024-08-31 07:16] LABS: Hematocrit 37.5 % (41.0-53.0); Hemoglobin 12.7 g/dL (13.5-17.5); Mean Corpuscular Hemoglobin 31.0 pg (28.0-32.0); Mean Corpuscular Volume 91.4 fL (80.0-100.0); Nucleated Red Blood Cells % 0.1 %
--- NOTE | 2024-08-31 07:18 | ECG ---
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
[2024-08-31 07:39] LABS: Alanine Aminotransferase 16 U/L (7-40); Albumin 4.1 g/dL (3.2-4.8); Anion Gap 9 (5-15); BUN/Creatinine Ratio 14.8 (10.0-20.0); Blood Urea Nitrogen 12 mg/dL (9-23); Calcium 9.3 mg/dL (8.7-10.4); Carbon Dioxide 26 mmol/L (20-31); Chloride 102 mmol/L (98-107); Glucose 94 mg/dL (74-106); Magnesium 1.9 mg/dL (1.6-2.6); Sodium 137 mmol/L (136-145); Total Protein 6.2 g/dL (5.7-8.2)
[2024-08-31 07:40] LABS: Alkaline Phosphatase 44 U/L (46-116); Potassium 3.1 mmol/L (3.5-5.1)
[2024-08-31 07:42] LABS: Bilirubin, Total 2.1 mg/dL (0.2-1.0)
[2024-08-31 08:00] VITALS: PULSE 53; PULSE 62; RESP 18; O2SAT 96
[2024-08-31 09:03] VITALS: BP 122/84; PULSE 54; RESP 18; TEMP 98.6; O2SAT 96
[2024-08-31] MEDS: ACETAMINOPHEN 325 MG TAB PO ONE (10:17)
[2024-08-31] MEDS: POTASSIUM CHL 20MEQ/100ML 100 ML IV SCH (13:20)
[2024-08-31] MEDS: POTASSIUM CHL 20 Meq TABLET PO ONE (14:53)
[2024-08-31] MEDS ORDERED: AUG875T PO (15:09)
[2024-08-31] MEDS ORDERED: ZOFR4T PO (15:09)
[2024-08-31 15:28] VITALS: BP 124/70; PULSE 60; RESP 16; TEMP 97.8; O2SAT 98
--- NOTE | 2024-08-31 16:17 | DVHDSRES ---
Discharge Summary Date of Admission Resident Creating Document: REKHA MELGAR RESIDENT Aug 27, 2024 at 21:28 Date of Discharge: Aug 31, 2024 Labs/Diagnostic Data: Laboratory Results Test 08/31/24 06:10 08/30/24 05:20 08/29/24 13:04 08/28/24 06:38 White Blood Count 6.8 10^3/uL (4.4-10.8) Red Blood Count 4.10 10^6/uL (4.5-5.90) Hemoglobin 12.7 g/dL (13.5-17.5) Hematocrit 37.5 % (41.0-53.0) Mean Corpuscular Volume 91.4 fL (80.0-100.0) Mean Corpuscular Hemoglobin 31.0 pg (28.0-32.0) Mean Corpuscular Hemoglobin Concent 33.9 g/dL (32.0-36.0) Red Cell Distribution Width 13.0 % (11.8-14.3) Platelet Count 201 10^3/uL (140-450) Mean Platelet Volume 7.4 fL (6.9-10.8) Neutrophils (%) (Auto) 60.3 % (37.0-80.0) Lymphocytes (%) (Auto) 25.6 % (10.0-50.0) Monocytes (%) (Auto) 12.4 % (0.0-12.0) Eosinophils (%) (Auto) 1.4 % (0.0-7.0) Basophils (%) (Auto) 0.3 % (0.0-2.0) Neutrophils # (Auto) 4.1 10 ^3/uL (1.6-8.6) Lymphocytes # (Auto) 1.8 10 ^3/uL (0.4-5.4) Monocytes # (Auto) 0.8 10 ^3/uL (0-1.3) Eosinophils # (Auto) 0.1 10 ^3/uL (0-0.8) Basophils # (Auto) 0 10 ^3/uL (0-0.2) Nucleated Red Blood Cells 0.1 % Sodium Level 137 mmol/L (136-145) Potassium Level 3.1 mmol/L (3.5-5.1) Chloride Level 102 mmol/L (98-107) Carbon Dioxide Level 26 mmol/L (20-31) Anion Gap 9 (5-15) Blood Urea Nitrogen 12 mg/dL (9-23) Creatinine 0.81 mg/dL (0.700-1.30) Glomerular Filtration Rate Calc 121 mL/min (>90) BUN/Creatinine Ratio 14.8 (10.0-20.0) Serum Glucose 94 mg/dL (74-106) Calcium Level 9.3 mg/dL (8.7-10.4) Phosphorus Level 3.1 mg/dL (2.4-5.1) Magnesium Level 1.9 mg/dL (1.6-2.6) Total Bilirubin 2.1 mg/dL (0.2-1.0) Aspartate Amino Transferase (AST) 13 U/L (13-40) Alanine Aminotransferase (ALT) 16 U/L (7-40) Alkaline Phosphatase 44 U/L (46-116) Total Protein 6.2 g/dL (5.7-8.2) Albumin 4.1 g/dL (3.2-4.8) Triglycerides Level 54 mg/dL (< 150) Stool Occult Blood Negative (Negative) Stool Occult Blood Sample #3 (Negative) Stool for White Cells None seen Erythrocyte Sedimentation Rate 1 mm/hr (0-20) Hemoglobin A1c 4.9 % A1C (<5.7) Lactic Acid Level 1.5 mmol/L (0.4-2.0) C-Reactive Protein High Sensitivity 0.18 mg/dL (<1.0) Thyroid Stimulating Hormone (TSH) 0.59 uIU/mL (0.55-4.78) Test 08/27/24 15:21 08/27/24 15:00 Troponin I High Sensitivity < 3 ng/L (</=54) Lipase 27 U/L (12-53) Saccharomyces cerevisiae IgG Ab <20.0 Units (0.0-24.9) Saccharomyces cerevisiae IgA Ab <20.0 Units (0.0-24.9) Urine Color Yellow (Yellow) Urine Clarity Clear (Clear) Urine pH 7.5 (5.0-9.0) Urine Specific [place] 1.044 (1.001-1.035) Urine Protein 1+ (Negative) Urine Ketones 1+ (Negative) Urine Blood Trace /uL (Negative) Urine Nitrite Negative (Negative) Urine Bilirubin Negative (Negative) Urine Urobilinogen 2 mg/dL (Negative) Urine Leukocyte Esterase Negative /uL (Negative) Urine RBC 22 /hpf (0 - 3) Urine Microscopic WBC 3 /HPF (0-3) Urine Squamous Epithelial Cells None seen /hpf (<5) Urine Bacteria None seen /hpf (None Seen) Urine Mucus Few (None Seen) Urine Glucose Normal mg/dL (Normal) Urine Opiates Screen Neg (NEGATIVE) Urine Fentanyl Screen Neg (NEGATIVE) Urine Barbiturates Screen Neg (NEGATIVE) Urine Phencyclidine Screen Neg (NEGATIVE) Urine Amphetamines Screen Neg (NEGATIVE) Urine Benzodiazepines Screen Neg (NEGATIVE) Urine Cocaine Screen Neg (NEGATIVE) Urine Cannabinoids Screen Pos (NEGATIVE) Other Laboratory Tests 08/31/24 06:10 Brief Hx & Hospital Course: Miguelito Neal is a 29-year-old male with past medical history of Anxiety, GERD, Asthma, kidney stone, substance abuse came to ER with the complain of vomiting for last 3 days which is worsen day by day. The patient tried Zofran and Protonix which is prescribed by GI doctor does not help. Patient also complain of upper abdominal pain which is intermittent, localized, sharp and crampy, 9/10 intensity, worsen with vomiting. He had low-grade fever and diarrhea for 3 days, passage jelly like stool treatment but not mixed with blood. Patient having multiple admission with similar symptom and last discharged from [facility] 08/15/2024. EGD (09/04/2023)-1 cm sliding-type hiatal hernia with slightly irregular squamocolumnar junction no significant esophagitis, Mild gastropathy of the proximal stomach,Minimal gastro-duodenitis with improvement in previously noted gastritis. Denies any cough, SOB, headache, dysuria, vertigo. No recent history of sick contact, eat street food or recent travel. 08/28/24. Vital signs were reviewed, the patient complains of nausea, vomit#3, diarrhea #2, epigastric abdominal pain and, anxiety. FOTB, C. Diff culture was ordered, also antiemetics. Patient will continue NPO, only medications, we will follow up closely. 08/29/24: Vital signs were reviewed, the patient complains of nausea, vomit#2, diarrhea #1, epigastric abdominal pain insomnia and, anxiety. FOTB reports negative for blood, C. Diff test is pending. Patient will continue NPO, only medications. Ciprofloxacin was stopped and ceftriaxone 1gr was started, GI is on board. We will follow up this patient closely. 08/30/24: Patient was examined at bedside today. Complains of abdominal pain 7 on 10. Continues to complain of mild nausea; No vomiting or diarrhea today. Stool from previous diarrheal episodes looked fatty, foul-smelling. Will do ova and parasite exam. His labs show decreased hemoglobin, hypokalemia, increased T bili. CT abdomen is positive for colitis. He underwent EGD today showing 1 cm sliding hernia with irregular squamocolumnar junction, Mild gastropathy, Minimum gastroduodenitis. We will do a trial of clear liquid diet today. The trial fails we might have to consider switching from PPN to TPN. Continue course, continue monitoring and managing. 08/31/24: Patient was examined at bedside today. Vital signs are stable, laboratory are not clinical significant. Reports feeling better, nausea and vomit have stopped. He now can tolerated full liquid diet. Stool culture showed normal bacteria. The patient will be discharge home today. He will follow up PCP in one week. ROS: Constitutional: Yes: Fever (Low-grade fever); No: Chills, Sweats, Weakness, Malaise, Other Eyes: No Pain, Vision change, Conjunctivae inflammation, Eyelid inflammation, Other, Redness ENT: No Ear pain, Ear discharge, Nose pain, Nose discharge, Nose congestion, Mouth pain, Mouth swelling, Throat pain, Throat swelling, Other Respiratory: No Cough, Dry, Shortness of breath, SOB with excertion, Wheezing, Hemoptysis, Pleuritic Pain, Sputum, Wheezing, Other Cardiovascular: No Chest Pain, Palpitations, Orthopnea, Paroxysmal Noc. Dyspnea, Edema, Lt Headedness, Other Gastrointestinal: Nausea, Vomiting, Abdominal Pain, Diarrhea. Genitourinary: No Dysuria, No Frequency, No Incontinence, No Hematuria, No Retention, No Other Musculoskeletal: No: other, neck pain, shoulder pain, arm pain, back pain, hand pain, leg pain, foot pain Skin: No: Rash, Lesions, Jaundice, Bruising, Other Neurological: No: Weakness, Numbness, Incoordination, Change in speech, Confusion, Seizures, Other Allergies: Fentanyl (Verified Allergy, Severe, 04/13/19) Physical Exam General Appearance: Anxious, alert, Oriented X3, Cooperative HEENT: PERRLA, EOMI Respiratory: Clear to auscultation, Normal air movement Cardiovascular: Regular rate, Normal S1, Normal S2 Abdominal: Tender on deep palpation on epigastric region, no rebound, no rigidity. Extremities: No clubbing, No cyanosis, No edema, Normal pulses Skin: No significant lesion Neuro: Normal speech, Strength at 5/5 X4 ext Problem List/Assessment/Plan # Sepsis due to colitis #Leukocytosis #Neutrophilia -During admission, HR 103, RR 22, leukocytosis with left shift (WBC 14.9, neutrophil 86.2) -CT abd and plvis w/o contrast: Concentric wall thickening throughout the colon, suggestive of infectious/inflammatory colitis. -EGD (09/04/2023): 1 cm sliding-type hiatal hernia with slightly irregular squamocolumnar junction no significant esophagitis, Mild gastropathy of the proximal stomach Minimal gastro-duodenitis with improvement in previously noted gastritis Pathology report : mild chronic inactive gastritis -Patient received IV ciprofloxacin and metronidazole in ED -TROPONIN <3 -Lipase 27 -Lactic acid 2.3>3.5, we will repeat lactic acid level -NSS IV 150 CC/HOURS -Ciprofloxacin 500 mg IV b.i.d. -Metronidazole 500 mg IV q.8h -Inflammatory bowel disease panel ordered -FOLLOW BLOOD CULTURE AND URINE CULTURE -GI consult -SBOT # Cannabis induced hyperemesis -Patient came with abdominal pain, nausea, vomiting -Currently use marijuana -UDS-cannabinoids positive -Ondansetron 4 mg iv q.6 -Metoclopramide 10 mg q.6 iv p.r.n. #Intractable abdominal pain, nausea, vomiting, possible gastroenteritis -Diarrhrea -IV fluids D5W/NS switched to lactated ringer. -Metronidazole 500mg/100ml IV -Ciprofloxacin 400mg/200ml -C diff and cultures pending -ON parasite stool exam ordered -we will do a trial of clear liquids today. If the trial fails we might have to consider switching from PPN to TPN. # Lactic acidosis -Lactic acid 2.3>3.5, -Repeat lactic acid level -NSS IV 150 CC/HOURS # GERD -Continue Pantoprazole 40 mg IV daily # Substance use disorders -Use marijuana -Counseling done, abstinence from substance use #Anxiety disorder #Insomnia -Mirtazapin 15mg -trazodone 5mg -melatonin 5mg #Normochromic normocytic anemia, unspecified -Hemoglobin 12.6 #Sliding hiatal hernia -EGD shows 1 cm sliding hiatal hernia with irregular squamocolumnar junction. #Gastroduodenitis -Minimal gastroduodenitis seen on EGD #Hypokalemia -Managed with IV 40 mg KCl rider Goals of care discussions, more than 35 minute spent. Code Status: Full code. Case discussed with Plan discussed with: Patient, patient agrees with the discharge plan. Condition at Discharge: Stable Final Diagnosis/Problems List -Sepsis due to colitis -Gastroenteritis -Cannabis induced hyperemesis Discharge Disposition: Home SNF Discharge Will this Physician continue t: No Discharge Instruct/Medications Diet: See Comment Diet comment: Full liquid diet move as tolerable to mechanical soft Activity: No Restrictions, As Tolerated Follow Up/Referral: PCP in one week Medications: -Zofran 4mg po Q6H -Augmentin 875/125 po bid for 5 days Scheduled Acetaminophen (Tylenol Extra Strength Fo), 1,000 MG PO BID Amoxicillin & Pot Clavulanate (Augmentin Tablet), 875 MG PO BID Carisoprodol (Carisoprodol), 350 MG PO TID, (Reported) Lidocaine (Anorectal) (Lidocaine 5%), 5 % EX DAILY Metoclopramide Hcl (Reglan), 10 MG PO BID Pantoprazole Sodium Sesquihydr (Pantoprazole Sodium), 40 MG PO BID Scheduled PRN Ibuprofen Micronized (Motrin Tablet), 600 MG PO TID PRN Ondansetron HCl (Ondansetron Hydrochloride), PO for NAUSEA / VOMITING, (Reported) Ondansetron Odt 4MG Tab (Zofran Po), 4 MG PO BID PRN Trazodone Hcl (Trazodone Hcl), 150 MG PO QHSP PRN for FOR INSOMNIA, (Reported) [Hydrocodone/Acetaminophen], PO Q4HPRN PRN for MODERATE PAIN, (Reported) Discharge Statement: "Patient was advised to return to the ER or call 911 if any headaches, dizziness, shortness of breath, chest pain, abdominal pain, bleeding, fevers, or worsening of medical condition. Patient was counseled about treatment plan, medications, possible side effects, patientverbalized understanding. All questions were answered to the best of my ability. This discharge took greater then 30 minutes in planning, reviewing documentation, counseling the patient, and discussing with other team members." ASSESSMENT ASSESSMENT Assessment -Sepsis due to colitis -Gastroenteritis -Cannabis induced hyperemesis Date of Service: Aug 31, 2024 Billing Provider: BRIA BECKHAM MD Common Visit Codes: 47115-ILL/OBS DISCH DAY >30min REKHA MELGAR Aug 31, 2024 16:17 BRIA BECKHAM MD Aug 31, 2024 21:46
[2024-08-31] MEDS ORDERED: PPN PER PHARMACY IV NR (22:00)
[2024-09-01] MEDS ORDERED: AZIT-43 PO (16:18)
== END 2024-08-31 15:55 | disposition home or self-care (01) | DRG 720 ==
LOC: EDBD 14:23 → ER 14:23 → OVERFLOW 21:28 → EAST 22:08 → TELE-EAST 08-29 12:51
PROVIDERS: ADMIT Student in an Organized Health Care Education/Training Program; ATTEND Student in an Organized Health Care Education/Training Program
DX: A41.9 Sepsis, unspecified organism (principal); E87.20 Acidosis, unspecified; K21.9 Gastro-esophageal reflux disease without esophagitis; A09 Infectious gastroenteritis and colitis, unspecified; K29.50 Unspecified chronic gastritis without bleeding; D64.9 Anemia, unspecified; F12.90 Cannabis use, unspecified, uncomplicated; E87.6 Hypokalemia; J45.909 Unspecified asthma, uncomplicated; K29.90 Gastroduodenitis, unspecified, without bleeding; F41.9 Anxiety disorder, unspecified; K44.9 Diaphragmatic hernia without obstruction or gangrene; G47.00 Insomnia, unspecified; Z79.899 Other long term (current) drug therapy; Z86.0100 Personal history of colon polyps, unspecified; Z87.442 Personal history of urinary calculi; Z88.5 Allergy status to narcotic agent; Z79.82 Long term (current) use of aspirin
CPT/HCPCS: 36415; 74018; 74176; 74250; 80053; 80307; 81001; 82270; 83036; 83605; 83690; 83735; 84100; 84443; 84478; 84484; 85025; 85048; 85652; 86141; 86256; 86671; 87045; 87427; 87493; 93005; 96365; 96375; G0378; J2405; J2470; J3480; J3490; J7131

== ENCOUNTER 2024-09-12 09:24 | Emergency (ER) | payer MEDICAID ==
[~2024-09-12] VITALS: Ht 177.8 cm; Wt 67.7 kg
[~2024-09-12 09:24] MED LIST changes: +AUG875T PO; +AZIT-43 PO; -CEPH500C PO; +ONDA-180 PO; -PANT40TA2 PO; -SUCR1TAB31 PO
--- NOTE | 2024-09-12 09:45 | ED.PDOC ---
GI ASSESSMENT HPI Comments This is a 29 year old male presenting to the ED with chief complaint of abdominal pain. Patient reports that he has been experiencing epigastric/periumbilical abdominal pain with associated nausea and vomiting since last week. Patient relays that he was admitted last week for sepsis due to colitis, being eventually discharged with antibiotics, which he finished, but no relief was noted. Patient notes he is also on Protonix with no relief. Patient denies any diarrhea, fever, chills, dizziness, chest pain, or flank pain. Chief Complaint: Abdominal Pain Time Seen by MD: 09:43 Primary Care Provider: UNKNOWN Reviewed Notes: Nurses Notes, Medications, Allergies Allergies: Coded Allergies: Fentanyl (Verified Allergy, Severe, 04/13/19) Home Meds Active Scripts Azithromycin (Azithromycin) 250 Mg Tab, 250 MG PO DAILY MDD 500 for 3 Days, #3 TAB 0 Refills 2 TABLETS ORALLY ON DAY ONE, THEN 1 TABLET ORALLY DAILY FOR 4 DAYS Prov:ESSENCE PRITCHARD RESIDENT 09/01/24 Ondansetron Odt 4MG Tab (ZOFRAN PO) 4 Mg Tb, 4 MG PO BID PRN for 10 Days, #20 TAB ODT TAB-DISSOLVE IN MOUTH, THEN SWALLOW Prov:ESSENCE PRITCHARD RESIDENT 08/31/24 Amoxicillin & Pot Clavulanate (AUGMENTIN TABLET) 875 Mg Tb, 875 MG PO BID for 5 Days, #10 TAB Prov:ESSENCE PRITCHARD RESIDENT 08/31/24 Metoclopramide Hcl (Reglan) 10 Mg Tab, 10 MG PO BID, #30 TAB Prov:JASMINA MANZO 04/04/24 Acetaminophen (Tylenol Extra Strength Fo) 500 Mg Tab, 1000 MG PO BID, #40 TAB Prov:JASMINA MANZO 04/04/24 Ibuprofen Micronized (MOTRIN TABLET) 600 Mg Tb, 600 MG PO TID PRN for 3 Days, #9 TAB *Black box warning-NSAIDS can increase risk of MD & hypertension, GI irritation, ulceration, bleed, perferation. Do not use post cardiac surgery. Use short duration/lowest effective dose. Prov:LORIE JENSEN MD 03/25/24 Lidocaine (Anorectal) (Lidocaine 5%) 5 % Cre, 5 % EX DAILY, #30 CRE Prov:JASMINA MANZO 11/22/23 Pantoprazole Sodium Sesquihydr (Pantoprazole Sodium) 40 Mg Tab, 40 MG PO BID, #100 TAB Prov:LUCILA ALMANZAR MD 04/26/17 Reported Medications Ondansetron HCl (Ondansetron Hydrochloride) 8 Mg Tab, PO PRN for NAUSEA / VOMITING 08/28/24 [Hydrocodone/Acetaminophen] 7.5/325MG No Conflict Check, PO Q4HPRN PRN for MODERATE PAIN, #60 07/24/14 Trazodone Hcl (Trazodone Hcl) 150 Mg Tab, 150 MG PO QHSP PRN for FOR INSOMNIA, #30 07/24/14 Carisoprodol (Carisoprodol) 350 Mg Tab, 350 MG PO TID, #90 07/24/14 Information Source: Patient Mode of Arrival: Ambulatory Timing: Days Duration: Since onset Prehospital treatment: None Quality: Sharp Vomitus: Watery Stool: Normal Severity: Moderate Recent: None Recent Hx of: None Pain Location: Epigastric, Periumbilical Modifying Factors: Nothing Associated sign and symptoms: Nausea, Vomiting, Abdominal Pain Past Medical History PAST MEDICAL HISTORY: Asthma, GERD, Kidney Stones Surgical History: Tonsillectomy Family History Family History: Reviewed,noncontributory to illness Social History Smoker: Non-Smoker Alcohol: Denies ETOH Use Drugs: Marijuana Lives In: Home Constitutional: denies: chills, diaphoresis, fatigue, fever, malaise, sweats, weakness, others EENTM: denies: blurred vision, double vision, ear bleeding, ear discharge, ear drainage, ear pain, ear ringing, eye pain, eye redness, hearing loss, mouth pain, mouth swelling, nasal discharge, nose bleeding, nose congestion, nose pain, photophobia, tearing, throat pain, throat swelling, voice changes, others Respiratory: denies: cough, hemoptysis, orthopnea, SOB at rest, shortness of breath, SOB with excertion, stridor, wheezing, others Cardiovascular: denies: chest pain, dizzy spells, diaphoresis, Dyspnea on exertion, edema, irregular heart beat, left arm pain, lightheadedness, palpitations, PND, syncope, others Gastrointestinal: reports: abdominal pain, nausea, vomiting; denies: abdomen distended, blood streaked bowels, constipated, diarrhea, dysphagia, difficulty swallowing, hematemesis, melena, poor appetite, poor fluid intake, rectal bleeding, rectal pain, others Genitourinary: denies: burning, dysuria, flank pain, frequency, hematuria, incontinence, penile discharge, penile sore, pain, testicle pain, testicle swel ling, urgency, others Neurological: denies: dizziness, fainting, headache, left sided numbness, left sided weakness, numbness, paresthesia, pre-existing deficit, right sided numbness, right sided weakness, seizure, speech problems, tingling, tremors, weakness, others Musculoskeletal: denies: back pain, gout, joint pain, joint swelling, muscle pain, muscle stiffness, neck pain, others Integumetry: denies: bruises, change in color, change in hair/nails, dryness, laceration, lesions, lumps, rash, wounds, others Allergic/Immunocompromised: denies: Difficulty Healing, Frequent Infections, Hives, Itching, others Hematologic/Lymphatic: denies: anemia, blood clots, easy bleeding, easy bruising, swollen glands, others Endocrine: denies: excessive hunger, excessive sweating, excessive thirst, excessive urination, flushing, intolerance to cold, intolerance to heat, unexplained weight gain, unexplained weight loss, others Psychiatric: denies: anxiety, bipolar disorder, depression, hopeless, panic disorder, schizophrenia, sleepless, suicidal, others All Other Systems: Reviewed and Negative Physical Exam General Appearance: Moderate Distress, Normal HEENT: Normal ENT Inspection, Pharynx Normal, TMs Normal Neck: Full Range of Motion, Non-Tender, Normal, Normal Inspection Respiratory: Chest Non-Tender, Lungs Clear, No Accessory Muscle Use, No Respiratory Distress, Normal Breath Sounds Cardiovascular: No Edema, No JVD, No Murmur, No Gallop, Normal Peripheral Pulses, Regular Rate/Rhythm Breast Exam: Deferred Gastrointestinal: No Organomegaly, Non Tender, No Pulsatile Mass, Normal Bowel Sounds, Soft Genitalia: Deferred Pelvic: Deferred Rectal: Deferred Extremities: No calf tenderness, Normal capillary refill, Normal inspection, Normal range of motion, Non-tender, No pedal edema Musculoskeletal : Apperance: Normal Neurologic: Alert, icer machine II-XII nml as Tested, No Motor Deficits, Normal Affect, Normal Mood, No Sensory Deficits Cerebellar Function: Normal Reflexes: Normal Skin: Dry, Normal Color, Warm Peripheral Pulses: 3+ Radial (R), 3+ Radial (L) Lymphatic: No Adenopathy Was a procedure done? Was a procedure done?: No GI differential Dx Differential Diagnosis: Constipation, Diverticular disease, Esophagitis, Gastritis/PUD, Gastroenteritis X-Ray, Labs, Meds, VS Vital Signs Date Time Temp Pulse Resp B/P (MAP) Pulse Ox O2 Delivery O2 Flow Rate FiO2 09/12/24 10:40 84 15 136/74 09/12/24 10:16 78 15 128/80 09/12/24 10:16 98.0 78 15 128/80 (96) 98 98.0 09/12/24 09:33 98.8 80 16 131/83 (99) 97 98.8 Lab Test 09/12/24 09:53 Range/Units White Blood Count 7.5 4.4-10.8 10^3/uL Red Blood Count 3.99 L 4.5-5.90 10^6/uL Hemoglobin 12.7 L 13.5-17.5 g/dL Hematocrit 37.6 L 41.0-53.0 % Mean Corpuscular Volume 94.2 80.0-100.0 fL Mean Corpuscular Hemoglobin 31.8 28.0-32.0 pg Mean Corpuscular Hemoglobin Concent 33.7 32.0-36.0 g/dL Red Cell Distribution Width 13.8 11.8-14.3 % Platelet Count 317 140-450 10^3/uL Mean Platelet Volume 7.0 6.9-10.8 fL Neutrophils (%) (Auto) 77.7 37.0-80.0 % Lymphocytes (%) (Auto) 11.0 10.0-50.0 % Monocytes (%) (Auto) 10.4 0.0-12.0 % Eosinophils (%) (Auto) 0.4 0.0-7.0 % Basophils (%) (Auto) 0.5 0.0-2.0 % Neutrophils # (Auto) 5.9 1.6-8.6 10 ^3/uL Lymphocytes # (Auto) 0.8 0.4-5.4 10 ^3/uL Monocytes # (Auto) 0.8 0-1.3 10 ^3/uL Eosinophils # (Auto) 0 0-0.8 10 ^3/uL Basophils # (Auto) 0 0-0.2 10 ^3/uL Nucleated Red Blood Cells 0.0 % Sodium Level 142 136-145 mmol/L Potassium Level 4.0 3.5-5.1 mmol/L Chloride Level 106 98-107 mmol/L Carbon Dioxide Level 29 20-31 mmol/L Anion Gap 7 5-15 Blood Urea Nitrogen 7 L 9-23 mg/dL Creatinine 0.81 0.700-1.30 mg/dL Glomerular Filtration Rate Calc 121 >90 mL/min BUN/Creatinine Ratio 8.6 L 10.0-20.0 Serum Glucose 97 74-106 mg/dL Calcium Level 9.5 8.7-10.4 mg/dL Current Medications Medications (Trade) Dose Ordered Sig/Miller Route Start Time Stop Time Status Last Admin Ondansetron HCl (Zofran) 4 mg ONCE ONCE IV 09/12/24 09:45 09/12/24 09:46 DC 09/12/24 10:15 Morphine Sulfate 4 mg ONCE ONCE IV 09/12/24 09:45 09/12/24 09:46 DC 09/12/24 10:16 Sodium Chloride 1,000 ml @ 1,000 mls/hr Q1H ONCE IV 09/12/24 10:15 09/12/24 11:14 DC 09/12/24 10:16 Patient active. No sign of distress. Abdomen is soft nontender. WBC within normal limits. Was given pain medication. Was given Zofran. Establish intravenous access. Was given fluids. He is comfortable. Reviewed his previous visit. Explained to the patient. Was told to follow up with his primary care physician. Was told to come back if there is any problem. Time of 1ST Reevaluation: 10:42 Reevaluation 1ST: Improved Time of 2ND Reevaluation: 11:59 Reevaluation 2ND: Improved Patient Education/Counseling: Diagnosis, Treatment Family Education/Counseling: No Family Present SEPSIS Sepsis Screen Date sepsis recognized/suspect: Sep 12, 2024 Time Sepsis recognized/suspect: 929 Recent Procedure: No On Antibiotic Therapy: No Respiratory Rate >20: No Heart Rate >90: No Temp<36 C (96.8 F) or >38.3 C: No SBP <90 or MAP <65 mmHG: No New Acute Mental Status Change: No Is the patient on CPAP, BIPAP,: No Physician Orders Urinalysis (09/12/24 09:43) Drug Screen (09/12/24 09:43) Vital Signs Date Time Temp Pulse Resp B/P (MAP) Pulse Ox O2 Delivery O2 Flow Rate FiO2 09/12/24 10:40 84 15 136/74 09/12/24 10:16 78 15 128/80 09/12/24 10:16 98.0 78 15 128/80 (96) 98 98.0 09/12/24 09:33 98.8 80 16 131/83 (99) 97 98.8 Laboratory Tests Test 09/12/24 09:53 White Blood Count 7.5 10^3/uL (4.4-10.8) Medications Medications Dose Ordered Sig/Miller Route Start Time Stop Time Status Last Admin Dose Admin Morphine Sulfate 4 mg ONCE ONCE IV 09/12/24 09:45 09/12/24 09:46 DC 09/12/24 10:16 Ondansetron HCl 4 mg ONCE ONCE IV 09/12/24 09:45 09/12/24 09:46 DC 09/12/24 10:15 Sodium Chloride 1,000 ml @ 1,000 mls/hr Q1H ONCE IV 09/12/24 10:15 09/12/24 11:14 DC 09/12/24 10:16 Departure 1 Departure Time of Disposition: 12:00 Impression: Primary Impression: Ileus Disposition: 01 HOME / SELF CARE / HOMELESS Condition: Good Discharged With: Self Critical Care Note Critical Care Time?: No Stability Stability form required: No Heart Score Heart Score: Heart Score Response (Comments) Value History N/A 0 EKG N/A 0 Age N/A 0 Risk Factors N/A 0 Troponin N/A 0 Total 0 I personally scribed for LORIE JENSEN MD ([email or web address]) on 09/12/24 at 09:45. Electronically submitted by Fox Ontiveros ([email or web address]). LORIE JENSEN MD Sep 12, 2024 09:45
[2024-09-12] MEDS: ONDANSETRON HCL 4 MG/2 ML VIAL IV ONE (10:15)
[2024-09-12] MEDS: SODIUM CHLORIDE 0.9% 1,000 ML IV ONE (10:16)
[2024-09-12] MEDS: MORPHINE SULFATE 4 MG/ML SYR/VIAL IV ONE (10:16)
[2024-09-12 10:23] LABS: Hematocrit 37.6 % (41.0-53.0); Hemoglobin 12.7 g/dL (13.5-17.5); Mean Corpuscular Hemoglobin 31.8 pg (28.0-32.0); Mean Corpuscular Volume 94.2 fL (80.0-100.0); Nucleated Red Blood Cells % 0.0 %
[2024-09-12 10:25] LABS: Chloride 106 mmol/L (98-107); Potassium 4.0 mmol/L (3.5-5.1); Sodium 142 mmol/L (136-145)
[2024-09-12 10:26] LABS: Anion Gap 7 (5-15); Calcium 9.5 mg/dL (8.7-10.4); Carbon Dioxide 29 mmol/L (20-31)
[2024-09-12 10:31] LABS: BUN/Creatinine Ratio 8.6 (10.0-20.0); Glucose 97 mg/dL (74-106)
[2024-09-12 10:33] LABS: Blood Urea Nitrogen 7 mg/dL (9-23)
[2024-09-12 12:23] VITALS: BP 137/81; PULSE 88; RESP 20; TEMP 98; O2SAT 96
[2024-09-12 12:34] LABS: Urine Protein, UAD Negative (Negative)
[2024-09-12 12:45] LABS: Amphetamine Screen, Urine Neg (NEGATIVE); Barbiturate Scree,Urine Neg (NEGATIVE); Benzodiazephine Screen, Urine Neg (NEGATIVE); Cannabinoid Screen, Urine Pos (NEGATIVE); Cocaine Screen, Urine Neg (NEGATIVE); Opiate Scree,Urine Pos (NEGATIVE); Phencyclidine Screen, Urine Neg (NEGATIVE)
== END 2024-09-12 12:27 | disposition home or self-care (01) ==
LOC: ER 09:47
DX: K56.7 Ileus, unspecified (principal); J45.909 Unspecified asthma, uncomplicated; Z79.899 Other long term (current) drug therapy; Z90.89 Acquired absence of other organs; Z88.5 Allergy status to narcotic agent
CPT/HCPCS: 36415; 80048; 80307; 81001; 85025; 96374; 96375; 99284; J2270; J2405; J7030

== ENCOUNTER 2025-01-01 10:33 | Inpatient (IN) | payer MEDICAID ==
[~2025-01-01] VITALS: Ht 177.8 cm; Wt 63.5 kg
[2025-01-01] MEDS: ONDANSETRON HCL 4 MG/2 ML VIAL IV ONE (11:00)
[2025-01-01] MEDS: MORPHINE SULFATE INJ 2 MG/ml SYRG IV ONE ×2 (11:00→19:40)
--- NOTE | 2025-01-01 11:02 | ED.PDOC ---
GI ASSESSMENT HPI Comments Mr. Neal is a 29-year-old male with prior medical history of GERD and kidney stones, who presents today with chief complaint of bilateral flank pain. He states 3 days ago he had onset of left-sided flank pain described as sharp radiating towards his groin, 10/10 intensity, associated with nausea, vomiting, urinary tenesmus, dribbling, and dark urine, minimally improved by hot showers. Additionally refers that since yesterday he began to present similar pain on the right side as well and onset of diarrhea this morning. He denies fever, chest pain, shortness of breath, palpitations, loss of conscious, bloody vomit, and bloody bowel movements. Due to persistence of symptoms, he presents today to the ED for evaluation. On initial evaluation, he seems uncomfortable due to pain, afebrile, hypertensive, and saturating appropriately on room air. Chief Complaint: Flank Pain Time Seen by MD: 10:45 Primary Care Provider: UNKNOWN Reviewed Notes: Nurses Notes, Medications, Allergies Allergies: Coded Allergies: Fentanyl (Verified Allergy, Severe, 04/13/19) Home Meds Active Scripts Azithromycin (Azithromycin) 250 Mg Tab, 250 MG PO DAILY MDD 500 for 3 Days, #3 TAB 0 Refills 2 TABLETS ORALLY ON DAY ONE, THEN 1 TABLET ORALLY DAILY FOR 4 DAYS Prov:ESSENCE PRITCHARD RESIDENT 09/01/24 Ondansetron Odt 4MG Tab (ZOFRAN PO) 4 Mg Tb, 4 MG PO BID PRN for 10 Days, #20 TAB ODT TAB-DISSOLVE IN MOUTH, THEN SWALLOW Prov:ESSENCE PRITCHARD RESIDENT 08/31/24 Amoxicillin & Pot Clavulanate (AUGMENTIN TABLET) 875 Mg Tb, 875 MG PO BID for 5 Days, #10 TAB Prov:ESSENCE PRITCHARD RESIDENT 08/31/24 Metoclopramide Hcl (Reglan) 10 Mg Tab, 10 MG PO BID, #30 TAB Prov:JASMINA MANZO 04/04/24 Acetaminophen (Tylenol Extra Strength Fo) 500 Mg Tab, 1000 MG PO BID, #40 TAB Prov:JASMINA MANZO 04/04/24 Ibuprofen Micronized (MOTRIN TABLET) 600 Mg Tb, 600 MG PO TID PRN for 3 Days, #9 TAB *Black box warning-NSAIDS can increase risk of [place] & hypertension, GI irritation, ulceration, bleed, perferation. Do not use post cardiac surgery. Use short duration/lowest effective dose. Prov:LORIE JENSEN MD 03/25/24 Lidocaine (Anorectal) (Lidocaine 5%) 5 % Cre, 5 % EX DAILY, #30 CRE Prov:JASMINA MANZO 11/22/23 Pantoprazole Sodium Sesquihydr (Pantoprazole Sodium) 40 Mg Tab, 40 MG PO BID, #100 TAB Prov:LUCILA ALMANZAR MD 04/26/17 Reported Medications Ondansetron HCl (Ondansetron Hydrochloride) 8 Mg Tab, PO PRN for NAUSEA / VOMITING 08/28/24 [Hydrocodone/Acetaminophen] 7.5/325MG No Conflict Check, PO Q4HPRN PRN for MODERATE PAIN, #60 07/24/14 Trazodone Hcl (Trazodone Hcl) 150 Mg Tab, 150 MG PO QHSP PRN for FOR INSOMNIA, #30 07/24/14 Carisoprodol (Carisoprodol) 350 Mg Tab, 350 MG PO TID, #90 07/24/14 Information Source: Patient Mode of Arrival: Ambulatory Timing: Days Duration: Since onset Quality: Sharp Vomitus: Watery Stool: Loose Severity: Moderate Recent: None Recent Hx of: None Pain Location: Other (Flank ) Modifying Factors: Nothing Associated sign and symptoms: Nausea, Vomiting Past Medical History PAST MEDICAL HISTORY: Asthma, GERD, Kidney Stones Surgical History: Tonsillectomy Surgical History (Other): Uretheral stent, lithotripsy Family History Family History: Reviewed,noncontributory to illness, Family hx of DM, Family hx of Cancer, Family hx of HTN Social History Smoker: Non-Smoker Alcohol: Denies ETOH Use Drugs: Marijuana Lives In: Home Constitutional: denies: chills, diaphoresis, fatigue, fever, malaise, sweats, weakness EENTM: reports: others; denies: blurred vision, double vision, eye redness, hearing loss, mouth pain, mouth swelling, nasal discharge, nose bleeding, nose congestion, nose pain, photophobia, throat swelling Respiratory: denies: cough, hemoptysis, orthopnea, shortness of breath Cardiovascular: denies: chest pain, dizzy spells, diaphoresis, Dyspnea on exertion, edema, irregular heart beat, left arm pain, lightheadedness, palpitations Gastrointestinal: reports: abdominal pain, nausea, vomiting; denies: abdomen distended, blood streaked bowels, constipated, diarrhea, dysphagia, difficulty swallowing, hematemesis, melena, poor appetite, poor fluid intake, rectal bleeding, rectal pain Genitourinary: reports: others (Tenesmus); denies: burning, dysuria, flank pain, frequency, hematuria, incontinence, urgency Neurological: denies: dizziness, fainting, headache, numbness, paresthesia, pre-existing deficit, seizure, tingling, tremors, weakness Musculoskeletal: denies: back pain, joint pain, joint swelling, muscle pain, muscle stiffness, neck pain Integumetry: denies: bruises, laceration, lesions, lumps, rash, wounds Physical Exam General Appearance: Moderate Distress HEENT: Normal ENT Inspection, PERRL/EOMI, Pharynx Normal Neck: Full Range of Motion, Non-Tender, Normal Inspection Respiratory: Accessory Muscle Use, Chest Non-Tender, No Accessory Muscle Use, No Respiratory Distress, Normal Breath Sounds Cardiovascular: No Edema, No Murmur Breast Exam: Deferred Gastrointestinal: Other (Abdomen nondistended, normoactive bowel sounds, pain to palpation of lower abdominal quadrants, bilateral CVA tendernes) Genitalia: Deferred Pelvic: Deferred Rectal: Deferred Extremities: Normal capillary refill, Normal inspection, Normal range of motion, Non-tender, No pedal edema Neurologic: Alert, Normal Affect, Normal Mood Cerebellar Function: NOT DONE Reflexes: NOT DONE Skin: Normal Color Peripheral Pulses: 4+ dorsalis pedis (R), 4+ dorsalis pedis (L) Lymphatic: Other (No cervical adenopathy ) Was a procedure done? Was a procedure done?: No GI differential Dx Differential Diagnosis: Appendicitis, Bowel Obstruction, Cholangitis, Cholecystitis, Constipation, Diverticular disease, Gastritis/PUD, Gastroenteritis, GI hemorrhage, Hernia, Ischemic Bowel, Pancreatitis, UTI, Urolithiasis, Food Poisoning, Kidney Stone X-Ray, Labs, Meds, VS Vital Signs Date Time Temp Pulse Resp B/P (MAP) Pulse Ox O2 Delivery O2 Flow Rate FiO2 01/01/25 12:34 65 17 110/65 (80) 98 01/01/25 12:27 65 17 110/65 01/01/25 11:55 98.7 78 18 115/75 (88) 97 98.7 01/01/25 11:00 78 10 115/75 01/01/25 10:35 98.3 87 18 149/89 97 98.3 Lab Test 01/01/25 12:13 01/01/25 11:18 Range/Units Urine Color Yellow Yellow Urine Clarity Clear Clear Urine pH 6.0 5.0-9.0 Urine Specific [place] 1.024 1.001-1.035 Urine Protein Negative Negative Urine Ketones Negative Negative Urine Blood Negative Negative /uL Urine Nitrite Negative Negative Urine Bilirubin Negative Negative Urine Urobilinogen Normal Negative mg/dL Urine Leukocyte Esterase 1+ Negative /uL Urine RBC 2 0 - 3 /hpf Urine Microscopic WBC 3 0-3 /HPF Urine Squamous Epithelial Cells Few <5 /hpf Urine Bacteria None seen None Seen /hpf Urine Mucus Few None Seen Urine Glucose Normal Normal mg/dL White Blood Count 7.1 4.4-10.8 10^3/uL Red Blood Count 4.70 4.5-5.90 10^6/uL Hemoglobin 14.6 13.5-17.5 g/dL Hematocrit 43.5 41.0-53.0 % Mean Corpuscular Volume 92.5 80.0-100.0 fL Mean Corpuscular Hemoglobin 31.1 28.0-32.0 pg Mean Corpuscular Hemoglobin Concent 33.6 32.0-36.0 g/dL Red Cell Distribution Width 14.3 11.8-14.3 % Platelet Count 284 140-450 10^3/uL Mean Platelet Volume 6.8 L 6.9-10.8 fL Neutrophils (%) (Auto) 75.7 37.0-80.0 % Lymphocytes (%) (Auto) 18.7 10.0-50.0 % Monocytes (%) (Auto) 4.6 0.0-12.0 % Eosinophils (%) (Auto) 0.5 0.0-7.0 % Basophils (%) (Auto) 0.5 0.0-2.0 % Neutrophils # (Auto) 5.4 1.6-8.6 10 ^3/uL Lymphocytes # (Auto) 1.3 0.4-5.4 10 ^3/uL Monocytes # (Auto) 0.3 0-1.3 10 ^3/uL Eosinophils # (Auto) 0 0-0.8 10 ^3/uL Basophils # (Auto) 0 0-0.2 10 ^3/uL Nucleated Red Blood Cells 0.1 % Sodium Level 142 136-145 mmol/L Potassium Level 4.4 3.5-5.1 mmol/L Chloride Level 110 H 98-107 mmol/L Carbon Dioxide Level 26 20-31 mmol/L Anion Gap 6 5-15 Blood Urea Nitrogen 8 L 9-23 mg/dL Creatinine 0.89 0.700-1.30 mg/dL Glomerular Filtration Rate Calc 118 >90 mL/min BUN/Creatinine Ratio 9.0 L 10.0-20.0 Serum Glucose 84 74-106 mg/dL Calcium Level 9.5 8.7-10.4 mg/dL Current Medications Medications (Trade) Dose Ordered Sig/Miller Route Start Time Stop Time Status Last Admin Ondansetron HCl (Zofran) 4 mg ONCE ONCE IV 01/01/25 11:00 01/01/25 11:06 DC 01/01/25 11:00 Morphine Sulfate 2 mg ONCE ONCE IV 01/01/25 11:00 01/01/25 11:08 DC 01/01/25 11:00 Sodium Chloride 1,000 ml @ 1,000 mls/hr Q1H ONCE IV 01/01/25 12:45 01/01/25 13:44 DC 01/01/25 13:03 Ketorolac Tromethamine (Toradol Injection) 15 mg ONCE ONCE IV 01/01/25 12:45 01/01/25 12:53 DC 01/01/25 13:10 Images Reviewed?: Images reviewed and evaluated by me Time of 1ST Reevaluation: 12:30 Reevaluation 1ST: Unchanged Time of 2ND Reevaluation: 13:50 Reevaluation 2ND: Improved Patient Education/Counseling: Diagnosis, Treatment, Prognosis Family Education/Counseling: No Family Present Comments He presents today with chief complaint of abdominal pain On initial evaluation, the patient is uncomfortable due to pain, afebrile, hypertensive, ambulating with mild to pain, and saturating appropriately on room air Physical examination is positive for pain on palpation of lower abdominal quadrants and bilateral CVA tenderness CBC and BMP are within normal range, UA is without significant findings Abdominal CT shows punctate nonobstructing left renal calculus measuring 2 mm, mild bowel wall thickening of the ascending and transverse colon with surrounding stranding which could represent sequela of colitis, inflammatory bowel disease, and trace free pelvic fluid. The patient was given morphine 2 mg IV and Toradol 15 mg IV for pain, Zofran 4 mg IV for nausea, and NS 1000 cc IV bolus On secondary evaluation, the patient continues to state he is in intense pain, vitals continue to be states The patient will be admitted for IV antibiotic treatment and pain control SEPSIS Sepsis Screen Date sepsis recognized/suspect: Jan 01, 2025 Time Sepsis recognized/suspect: 1035 Recent Procedure: No On Antibiotic Therapy: No Respiratory Rate >20: No Heart Rate >90: No Temp<36 C (96.8 F) or >38.3 C: No SBP <90 or MAP <65 mmHG: No New Acute Mental Status Change: No Is the patient on CPAP, BIPAP,: No Physician Orders Ct Ab Pel Wo Con-No Oral Or Iv (01/01/25 11:00) Lipase (01/01/25 14:13) Hepatic Panel (01/01/25 14:13) Ceftriaxone 1gm/50ml (Rocephin) (01/01/25 14:30) Metronidazole 500mg/100ml (Flagyl 500mg/ (01/01/25 14:30) Vital Signs Date Time Temp Pulse Resp B/P (MAP) Pulse Ox O2 Delivery O2 Flow Rate FiO2 01/01/25 12:34 65 17 110/65 (80) 98 01/01/25 12:27 65 17 110/65 01/01/25 11:55 98.7 78 18 115/75 (88) 97 98.7 01/01/25 11:00 78 10 115/75 01/01/25 10:35 98.3 87 18 149/89 97 98.3 Laboratory Tests Test 01/01/25 11:18 White Blood Count 7.1 10^3/uL (4.4-10.8) Medications Medications Dose Ordered Sig/Miller Route Start Time Stop Time Status Last Admin Dose Admin Ketorolac Tromethamine 15 mg ONCE ONCE IV 01/01/25 12:45 01/01/25 12:53 DC 01/01/25 13:10 Morphine Sulfate 2 mg ONCE ONCE IV 01/01/25 11:00 01/01/25 11:08 DC 01/01/25 11:00 Ondansetron HCl 4 mg ONCE ONCE IV 01/01/25 11:00 01/01/25 11:06 DC 01/01/25 11:00 Sodium Chloride 1,000 ml @ 1,000 mls/hr Q1H ONCE IV 01/01/25 12:45 01/01/25 13:44 DC 01/01/25 13:03 Departure 1 Departure Time of Disposition: 14:18 Impression: Primary Impression: Intractable abdominal pain Additional Impression: Colitis Disposition: ADMITTED INPATIENT Admit to: Med Surg Condition: Stable Critical Care Note Critical Care Time?: No Stability Stability form required: NICOL Crystal Jan 01, 2025 11:02 KELLI JUNIOR MD Jan 01, 2025 14:22
[2025-01-01 11:29] LABS: Hematocrit 43.5 % (41.0-53.0); Hemoglobin 14.6 g/dL (13.5-17.5); Mean Corpuscular Hemoglobin 31.1 pg (28.0-32.0); Mean Corpuscular Volume 92.5 fL (80.0-100.0); Nucleated Red Blood Cells % 0.1 %
--- NOTE | 2025-01-01 11:35 | DVH ---
Indication: R/o nephrolithiasis Technique: CT axial images of the abdomen and pelvis are obtained without contrast. Coronal and sagittal reformats were obtained. Radiation Dose Information: CTDI volume is 5 mGy. Dose-length product is 257 mGy*cm Comparison: CT CT AB PEL WO CON-NO ORAL OR IV on DOS: 08/27/24 FINDINGS: There is limited interpretation of the abdomen and pelvis without administration of intravenous contrast. Lung bases demonstrate no pleural effusion. Adrenal glands, spleen, pancreas unremarkable in shape. Liver unremarkable in shape. Gallbladder contracted. Kidneys demonstrate no hydronephrosis. Punctate nonobstructing left renal calculus measuring 2 mm. Stomach is partially distended. Small bowel loops are moderately distended. Moderate volume stool in the colon. Mild bowel wall thickening of the ascending and transverse colon with surrounding stranding. Normal appendix. Bladder partially distended. Trace free pelvic fluid. No inguinal lymphadenopathy. No aggressive osseous process. IMPRESSION: Limited evaluation without contrast. Punctate nonobstructing left renal calculus measuring 2 mm. Mild bowel wall thickening of the ascending and transverse colon with surrounding stranding which could represent sequela of colitis, inflammatory bowel disease. Trace free pelvic fluid. Other findings as described.
[2025-01-01 11:39] LABS: Potassium 4.4 mmol/L (3.5-5.1); Sodium 142 mmol/L (136-145)
[2025-01-01 11:40] LABS: Anion Gap 6 (5-15); Carbon Dioxide 26 mmol/L (20-31); Chloride 110 mmol/L (98-107)
[2025-01-01 11:41] LABS: Calcium 9.5 mg/dL (8.7-10.4)
[2025-01-01 11:45] LABS: BUN/Creatinine Ratio 9.0 (10.0-20.0); Glucose 84 mg/dL (74-106)
[2025-01-01 11:52] LABS: Blood Urea Nitrogen 8 mg/dL (9-23)
[2025-01-01 12:35] LABS: Urine Protein, UAD Negative (Negative)
[2025-01-01] MEDS: SODIUM CHLORIDE 0.9% 1,000 ML IV ONE (13:03)
[2025-01-01] MEDS: KETOROLAC TROMETH 30 MG/ML 1ML VIAL IV ONE ×2 (13:10→17:41)
[2025-01-01 15:28] LABS: Alanine Aminotransferase 11.0 U/L (7-40); Albumin 4.6 g/dL (3.2-4.8); Alkaline Phosphatase 59.0 U/L (46-116); Bilirubin, Direct 0.3 mg/dL (<0.3); Bilirubin, Total 0.9 mg/dL (0.2-1.0); Total Protein 7.5 g/dL (5.7-8.2)
[2025-01-01 15:40] LABS: Lipase 39.0 U/L (12-53)
[2025-01-01 17:13] VITALS: PULSE 61; RESP 18; O2SAT 98
[2025-01-01] MEDS: TAMSULOSIN HYDROCHLORIDE 0.4 MG CAP PO ONE ×2 (19:40→22:46)
[2025-01-01] MEDS ORDERED: ACETAMINOPHEN 325 MG TAB PO PRN (20:45)
--- NOTE | 2025-01-01 21:05 | DVHHPRES ---
History of Present Illness Resident Creating Document: RANDY CAUSEY History of Present Illness Patient is a 29-year-old male with past medical history of GERD and kidney stones, presented to [facility] ED with complaint of bilateral flank pain. He reports that three days ago he developed left-sided flank pain described as sharp, radiating toward his groin, rated 10/10 in intensity, and associated with nausea, vomiting, urinary tenesmus, dribbling, and dark urine. The pain was minimally relieved by hot showers. Since yesterday, he has experienced similar pain on the right side and developed diarrhea this morning. He denies fever, chest pain, shortness of breath, palpitations, loss of consciousness, hematemesis, or bloody bowel movements. Due to persistence of symptoms, he presents today for evaluation. On evaluation in the ED, patient is afebrile, vitals are stable. Initial labs show within normal limit. Abdominal CT shows punctate nonobstructing left renal calculus measuring 2 mm and mild bowel wall thickening of the ascending and transverse colon with surrounding stranding. The patient was started on IV antibiotics and IV fluids. Patient is admitted for further evaluation and management. Past Medical History GERD and kidney stones Past Surgical History: None Family History: None Smoke: No ALCOHOL: none Drugs: None Lives: with Family Review of Systems Review of Systems Eyes: No Pain, No Vision change, No Conjunctivae inflammation, No Eyelid inflammation, No Other, No Redness ENT: No Ear pain, No Ear discharge, No Nose pain, No Nose discharge, No Nose congestion, No Mouth pain, No Mouth swelling, No Throat pain, No Throat swe lling, No Other Cardiovascular: No Chest Pain, No Palpitations, No Orthopnea, No Paroxysmal No Dyspnea, No Edema, No Lt Headedness, No Other Respiratory: No Cough, No Dry, No Shortness of breath, No SOB with exertion, No Wheezing, No Hemoptysis, No Pleuritic Pain, No Sputum, No Other Gastrointestinal: Nausea, Vomiting, Abdominal Pain, flank pain, Diarrhea, No Constipation, No Melena, No Hematochezia, No Other Genitourinary: Tenesmus. No Dysuria, No Frequency, No Incontinence, No Hematuria, No Retention, No Other Musculoskeletal: No other, No neck pain, No shoulder pain, No arm pain, No back pain, No hand pain, No leg pain, No foot pain Skin: No Rash, No Lesions, No Jaundice, No Bruising, No Other Allergies: Coded Allergies: Fentanyl (Verified Allergy, Severe, 04/13/19) Flu Virus Vaccine (Verified Allergy, Unknown, 01/01/25) Exam Vital Signs Vital Signs Date Time Temp Pulse Resp B/P (MAP) Pulse Ox O2 Delivery O2 Flow Rate FiO2 01/01/25 20:18 58 20 123/80 01/01/25 20:18 98 01/01/25 19:40 97.8 97.8 01/01/25 17:13 Room Air* 0 21 Exam General Appearance: Cooperative. Well developed. Well nourished. NAD Head Exam: Normal inspection Neck Exam: Normal inspection. Non-tender. Normal alignment Pulmonary/Respiratory: Chest non-tender. Clear bilateral breath sounds, no crackles, no wheezing. Cardiovascular/Chest: Regular rate and rhythm. No murmurs. No JVD. Peripheral Pulses: 2+ Radial (R). 2+ Radial (L). 2+ Pedal (R). 2+ Pedal (L) Abdominal Exam: Abdomen nondistended, normoactive bowel sounds, pain to palpation of lower abdominal quadrants, bilateral CVA tenderness Ankle Exam: Negative ankle edema Lower extremities: Negative lower extremity edema Neuro/Mental Status: A&O x4. Coherent. Thoughts/Psych: Normal thought pattern. Appropriate mood and affect. Good judgement and insight Skin Exam: Normal inspection. Normal color. Warm. Dry Labs/Xrays Labs Test 01/01/25 12:13 01/01/25 11:18 Range/Units Urine Color Yellow Yellow Urine Clarity Clear Clear Urine pH 6.0 5.0-9.0 Urine Specific [place] 1.024 1.001-1.035 Urine Protein Negative Negative Urine Ketones Negative Negative Urine Blood Negative Negative /uL Urine Nitrite Negative Negative Urine Bilirubin Negative Negative Urine Urobilinogen Normal Negative mg/dL Urine Leukocyte Esterase 1+ Negative /uL Urine RBC 2 0 - 3 /hpf Urine Microscopic WBC 3 0-3 /HPF Urine Squamous Epithelial Cells Few <5 /hpf Urine Bacteria None seen None Seen /hpf Urine Mucus Few None Seen Urine Glucose Normal Normal mg/dL White Blood Count 7.1 4.4-10.8 10^3/uL Red Blood Count 4.70 4.5-5.90 10^6/uL Hemoglobin 14.6 13.5-17.5 g/dL Hematocrit 43.5 41.0-53.0 % Mean Corpuscular Volume 92.5 80.0-100.0 fL Mean Corpuscular Hemoglobin 31.1 28.0-32.0 pg Mean Corpuscular Hemoglobin Concent 33.6 32.0-36.0 g/dL Red Cell Distribution Width 14.3 11.8-14.3 % Platelet Count 284 140-450 10^3/uL Mean Platelet Volume 6.8 L 6.9-10.8 fL Neutrophils (%) (Auto) 75.7 37.0-80.0 % Lymphocytes (%) (Auto) 18.7 10.0-50.0 % Monocytes (%) (Auto) 4.6 0.0-12.0 % Eosinophils (%) (Auto) 0.5 0.0-7.0 % Basophils (%) (Auto) 0.5 0.0-2.0 % Neutrophils # (Auto) 5.4 1.6-8.6 10 ^3/uL Lymphocytes # (Auto) 1.3 0.4-5.4 10 ^3/uL Monocytes # (Auto) 0.3 0-1.3 10 ^3/uL Eosinophils # (Auto) 0 0-0.8 10 ^3/uL Basophils # (Auto) 0 0-0.2 10 ^3/uL Nucleated Red Blood Cells 0.1 % Sodium Level 142 136-145 mmol/L Potassium Level 4.4 3.5-5.1 mmol/L Chloride Level 110 H 98-107 mmol/L Carbon Dioxide Level 26 20-31 mmol/L Anion Gap 6 5-15 Blood Urea Nitrogen 8 L 9-23 mg/dL Creatinine 0.89 0.700-1.30 mg/dL Glomerular Filtration Rate Calc 118 >90 mL/min BUN/Creatinine Ratio 9.0 L 10.0-20.0 Serum Glucose 84 74-106 mg/dL Calcium Level 9.5 8.7-10.4 mg/dL Total Bilirubin 0.9 0.2-1.0 mg/dL Direct Bilirubin 0.3 <0.3 mg/dL Aspartate Amino Transferase (AST) 13 13-40 U/L Alanine Aminotransferase (ALT) 11 7-40 U/L Alkaline Phosphatase 59 46-116 U/L Total Protein 7.5 5.7-8.2 g/dL Albumin 4.6 3.2-4.8 g/dL Lipase 39 12-53 U/L SEPSIS Sepsis Screen Date sepsis recognized/suspect: Jan 01, 2025 Time Sepsis recognized/suspect: 1712 Recent Procedure: No On Antibiotic Therapy: No Respiratory Rate >20: No Heart Rate >90: No Temp<36 C (96.8 F) or >38.3 C: No SBP <90 or MAP <65 mmHG: No New Acute Mental Status Change: No Is the patient on CPAP, BIPAP,: No Physician Orders Admit (01/01/25 20:41) Allergies (01/01/25 20:41) Code Status (01/01/25 20:41) Hydrocodone-Acet 5/325mg Tab ([place] 5/32 (01/01/25 20:45) Ondansetron Hcl (Zofran) (01/01/25 20:45) Complete Blood Count (01/02/25 04:00) Comprehensive Metabolic Panel (01/02/25 04:00) Condition: Fair (01/01/25 20:41) Acetaminophen Tablet (Tylenol Tablet) (01/01/25 20:45) Stat Ekg For Chest Pain (01/01/25 20:41) Notify Md Of Changes From Base (01/01/25 20:41) Soft Diet (01/02/25 Breakfast) NS (01/01/25 20:45) Drug Screen (01/01/25 20:41) Hydromorphone Injection (Dilaudid Inject (01/01/25 20:45) Tamsulosin Hydrochloride (Flomax) (01/01/25 20:45) Tamsulosin Hydrochloride (Flomax) (01/02/25 18:00) Chest Xray 1 View (01/01/25 20:41) Urine Bacterial Culture (01/01/25 20:41) Strain All Urine For Stones (01/01/25 20:41) Pantoprazole (Protonix) (01/01/25 20:45) Pantoprazole (Protonix) (01/02/25 10:00) Zolpidem Tartrate (Ambien) (01/01/25 20:45) Vital Signs Date Time Temp Pulse Resp B/P (MAP) Pulse Ox O2 Delivery O2 Flow Rate FiO2 01/01/25 20:18 58 20 123/80 01/01/25 20:18 58 20 123/80 (94) 98 01/01/25 19:40 97.8 63 18 110/81 (91) 98 97.8 01/01/25 19:40 63 18 110/81 01/01/25 17:13 61 18 98 Room Air* 0 21 01/01/25 17:13 98.5 61 18 126/77 (93) 98 98.5 01/01/25 15:47 98.0 59 16 124/86 (99) 97 98.0 Laboratory Tests Test 01/01/25 11:18 White Blood Count 7.1 10^3/uL (4.4-10.8) Medications Medications Dose Ordered Sig/Miller Route Start Time Stop Time Status Last Admin Dose Admin Ceftriaxone Sodium 50 ml @ 100 mls/hr ONCE ONCE IV 01/01/25 14:30 01/01/25 14:59 DC 01/01/25 15:24 100 MLS/HR Ketorolac Tromethamine 15 mg ONCE ONCE IV 01/01/25 12:45 01/01/25 12:53 DC 01/01/25 13:10 15 MG Ketorolac Tromethamine 15 mg ONCE ONCE IV 01/01/25 17:30 01/01/25 17:37 DC 01/01/25 17:41 15 MG Metronidazole 100 ml @ 100 mls/hr ONCE ONCE IV 01/01/25 14:30 01/01/25 15:29 DC 01/01/25 15:24 100 MLS/HR Morphine Sulfate 2 mg ONCE ONCE IV 01/01/25 11:00 01/01/25 11:08 DC 01/01/25 11:00 2 MG Morphine Sulfate 2 mg ONCE ONCE IV 01/01/25 19:30 01/01/25 19:31 DC 01/01/25 19:40 2 MG Ondansetron HCl 4 mg ONCE ONCE IV 01/01/25 11:00 01/01/25 11:06 DC 01/01/25 11:00 4 MG Sodium Chloride 1,000 ml @ 1,000 mls/hr Q1H ONCE IV 01/01/25 12:45 01/01/25 13:44 DC 01/01/25 13:03 1,000 MLS/HR Tamsulosin HCl 0.4 mg ONCE ONCE PO 01/01/25 19:30 01/01/25 19:31 DC 01/01/25 19:40 0.4 MG Assessment/Plan Assessment/Plan Nonobstructing left renal calculus Possible colitis, inflammatory bowel disease Intractable flank pain due to above Intractable abdominal pain due to above Abdomen/Pelvis CT: Punctate nonobstructing left renal calculus measuring 2 mm. Mild bowel wall thickening of the ascending and transverse colon with surrounding stranding which could represent sequela of colitis, inflammatory bowel disease. Trace free pelvic fluid. Chest X-ray: No acute cardiopulmonary disease. Pain management with Tylenol, [place] and Dilaudid Ceftriaxone IV daily Metronidazole IV q8h IV NS 100 MLS/HR Zofran 4 MG IV q4h Tamsulosin 0.4 MG PO qpm Acute urinary retention Bladder scan: >437ml Clarke catheter GERD Protonix 40 MG IV daily Insomnia Zolpidem 10 MG PO hs prn Diet: Soft Goals of care: Full code, discussed for >30 minutes on 01/02/25 Plan discussed with patient Plan discussed with Dr. Harmon Plan discussed with: Patient My Orders Orders - RANDY CAUSEY RESIDENT Procedure Category Date Status Time Admit ADMIT 01/01/25 Verified 20:41 Allergies HINA 01/01/25 Verified 20:41 Code Status CODE 01/01/25 Verified 20:41 Hydrocodone-Acet PHA 01/01/25 Verified 5/325mg Tab ([place] 20:45 Ondansetron Hcl PHA 01/01/25 Verified (Zofran) 20:45 Complete Blood Count LAB 01/02/25 Verified 04:00 Comprehensive LAB 01/02/25 Verified Metabolic Panel 04:00 Condition: Fair HINA 01/01/25 Verified 20:41 Acetaminophen Tablet PHA 01/01/25 Verified (Tylenol Tablet) 20:45 Stat Ekg For Chest HINA 01/01/25 Verified Pain 20:41 Notify Of Changes HINA 01/01/25 Verified From Base 20:41 Soft Diet DIET 01/02/25 Verified Breakfast NS PHA 01/01/25 Verified 20:45 Drug Screen LAB 01/01/25 Verified 20:41 Hydromorphone PHA 01/01/25 Verified Injection (Dilaudid 20:45 Tamsulosin PHA 01/01/25 Verified Hydrochloride (Flomax) 20:45 Tamsulosin PHA 01/02/25 Verified Hydrochloride (Flomax) 18:00 Chest Xray 1 View XY 01/01/25 Verified 20:41 Urine Bacterial CHIDI 01/01/25 Verified Culture 20:41 Strain All Urine For HINA 01/01/25 Verified Stones 20:41 Pantoprazole PHA 01/01/25 Verified (Protonix) 20:45 Pantoprazole PHA 01/02/25 Verified (Protonix) 10:00 Zolpidem Tartrate PHA 01/01/25 Verified (Ambien) 20:45 Date of Service: Jan 01, 2025 Billing Provider: LAMBERTO HARMON MD Common Visit Codes: [id number] INP/OBS CARE (HIGH) Secondary Visit Codes: [id number] CARE PLAN 30 MINUTES RANDY CAUSEY RESIDENT Jan 01, 2025 21:05 EMILI MARRERO RESIDENT Jan 02, 2025 07:03
--- NOTE | 2025-01-01 21:53 | DVH ---
CHEST RADIOGRAPH Indication: chest pain Technique: Single frontal view of the chest was obtained Comparison: XY CHEST PORTABLE on DOS: 02/08/24, CHEST PORTABLE on DOS: 08/27/19 FINDINGS: Lines and Tubes: None Lungs: No focal consolidation. Pleura: No effusion. No pneumothorax. Cardiomediastinal contours: Unremarkable Bones: No acute osseous abnormality. IMPRESSION: No acute cardiopulmonary disease.
[2025-01-01] MEDS: PANTOPRAZOLE 40 MG/10 ML VIAL INJ IV ONE (23:00)
[2025-01-01] MEDS: HYDROmorphone HCL 2 MG/ML VL/or syr IV PRN (23:00)
[2025-01-01 23:11] VITALS: BP 110/66; PULSE 69; RESP 18
[2025-01-01] MEDS: SODIUM CHLORIDE 0.9% 1,000 ML IV SCH (23:47)
[2025-01-02] VITALS (8 sets, daily range): BP systolic 110–152; BP diastolic 55–95; PULSE 65–75; RESP 14–19; TEMP 97.6–98.7; O2SAT 97–100
[2025-01-02] MEDS ORDERED: PANT40TA2 PO (00:02)
[2025-01-02] MEDS ORDERED: ZOLP10TA PO (00:02)
[2025-01-02] MEDS: ZOLPIDEM TARTRATE 5 MG TAB PO PRN (01:15)
[2025-01-02] MEDS: HYDROcodone-ACET 5/325MG TAB PO PRN (02:42)
--- NOTE | 2025-01-02 04:01 | DVH ---
MEDICAL RECORDS NUMBER: [id number] PROCEDURE: CT CT ABD PELVIS W CON-ORAL IV DATE: 01/02/2025 12:51 AM HISTORY: abdominal pain TECHNIQUE: CT of the abdomen and pelvis is performed with IV contrast. IV Contrast: Omnipaque 300, 100 cc Oral Contrast: No oral contrast was utilized. COMPARISON: CT CT AB PEL WITH IV CON ONLY on DOS: 09/01/23, CT ABD/PEL W - IV on DOS: 10/19/22, CT ABD PELVIS WO CONTRAST on DOS: 10/21/20 RADIATION DOSE INFORMATION: Automated exposure control dose reduction techniques were used. FINDINGS: Lung bases: Limited evaluation of the lung bases demonstrates no focal airspace process or pneumothorax. Mediastinum:Lower mediastinal structures appear unremarkable. Liver: The liver is normal in size. There is no focal liver lesion. Biliary ducts: There is no evidence of intrahepatic or extrahepatic biliary ductal dilatation. Gallbladder: No abnormality is seen of the gallbladder. Spleen: The spleen is normal in size without focal lesion. Stomach: The stomach appears unremarkable. Pancreas: The pancreas is unremarkable. Adrenal glands: The adrenal glands are unremarkable. Kidneys: The kidneys appear grossly unremarkable. No hydronephrosis is seen. No focal lesions are seen. No renal or ureteral stones are seen. Aorta and IVC: The aorta and IVC are patent and are normal in size. Mesenteric vessels: Major mesenteric vessels appear to be intact. Bowel: The visualized portions of the small and large bowel are normal in caliber. Appendix: The appendix is unremarkable. Pelvis:Pelvic structures appear unremarkable. Lymph nodes: There is no evidence of lymphadenopathy. Osseous structures: The osseous structures are intact. No lytic or blastic osseous lesion is noted. Free fluid/free air: None IMPRESSION: 1. No acute process is seen. No findings are seen to explain the patient's symptoms.
[2025-01-02 04:37] LABS: Hematocrit 38.3 % (41.0-53.0); Hemoglobin 13.0 g/dL (13.5-17.5); Mean Corpuscular Hemoglobin 31.4 pg (28.0-32.0); Mean Corpuscular Volume 92.8 fL (80.0-100.0); Nucleated Red Blood Cells % 0.1 %
[2025-01-02 04:54] LABS: Alkaline Phosphatase 49 U/L (46-116); Anion Gap 6 (5-15); Calcium 8.9 mg/dL (8.7-10.4); Carbon Dioxide 25 mmol/L (20-31); Potassium 3.6 mmol/L (3.5-5.1); Sodium 142 mmol/L (136-145)
[2025-01-02 04:55] LABS: BUN/Creatinine Ratio 9.2 (10.0-20.0); Glucose 90 mg/dL (74-106)
[2025-01-02 04:56] LABS: Albumin 3.7 g/dL (3.2-4.8); Total Protein 6.2 g/dL (5.7-8.2)
[2025-01-02 04:57] LABS: Bilirubin, Total 1.2 mg/dL (0.2-1.0)
[2025-01-02 05:04] LABS: Alanine Aminotransferase < 9 U/L (7-40); Blood Urea Nitrogen 8 mg/dL (9-23); Chloride 111 mmol/L (98-107)
[2025-01-02] MEDS: SODIUM CHLORIDE 0.9% 1,000 ML IV ONE (07:59)
[2025-01-02] MEDS: IOHEXOL 300 MG/ML 100ML BOTTLE IJ ONE (08:03)
[2025-01-02 08:09] LABS: Cocaine Screen, Urine Neg (NEGATIVE)
[2025-01-02 08:10] LABS: Amphetamine Screen, Urine Neg (NEGATIVE); Barbiturate Scree,Urine Neg (NEGATIVE); Benzodiazephine Screen, Urine Neg (NEGATIVE); Cannabinoid Screen, Urine Pos (NEGATIVE); Opiate Scree,Urine Pos (NEGATIVE); Phencyclidine Screen, Urine Neg (NEGATIVE)
[2025-01-02] MEDS: PANTOPRAZOLE 40 MG/10 ML VIAL INJ IV SCH (09:01)
--- NOTE | 2025-01-02 14:52 | DVHPN2 ---
Subjective Patient is seen and examined at bedside. The patient complained of abdominal pain. Reviewed: Care Plan, H&P, Labs, Medications, Previous Orders Changes from previous H/P or p: No Changes Objective Vitals Vital Signs Date Time Temp Pulse Resp B/P (MAP) Pulse Ox O2 Delivery O2 Flow Rate FiO2 01/02/25 13:02 65 18 128/74 01/02/25 13:00 98.2 98 98.2 01/01/25 23:11 Room Air* 0 21 Intake/Output Intake and Output 01/02/25 07:00 Intake Total 1722 ml Output Total 500 ml Balance 1222 ml Intake Oral 472 ml IV Total 1250 ml Output Urine Total 500 ml General Appearance: Alert, Oriented X3, Cooperative, No acute distress HEENT: Atraumatic, PERRLA, EOMI, Mucous membr. moist/pink Neck: Supple Lungs: Clear to auscultation, Normal air movement Cardiovascular: Regular rate, Normal S1, Normal S2, No murmurs, Gallops, Rubs Abdomen: Normal bowel sounds, Soft, No tenderness Neuro: Cranial nerves 3-12 NL Psych/Mental Status: Mental status NL Medications Current Medications Medications Dose Ordered Sig/Miller Route Start Time Stop Time Status Last Admin Dose Admin Acetaminophen/ Hydrocodone Bitart 1 tab Q4HP PRN PO 01/01/25 20:45 01/02/25 09:00 1 TAB Ondansetron HCl 4 mg Q4HP PRN IV 01/01/25 20:45 Acetaminophen 650 mg Q6HP PRN PO 01/01/25 20:45 Hydromorphone HCl 0.5 mg Q4HPRN PRN IV 01/01/25 20:45 01/02/25 13:02 0.5 MG Tamsulosin HCl 0.4 mg QPM PO 01/02/25 18:00 Pantoprazole Sodium 40 mg DAILY IV 01/02/25 10:00 01/02/25 09:01 40 MG Zolpidem Tartrate 10 mg HSPRN PRN PO 01/01/25 20:45 01/02/25 01:15 10 MG Sodium Chloride 1,000 ml @ 125 mls/hr Q8H IV 01/01/25 23:30 01/02/25 09:07 125 MLS/HR Ceftriaxone Sodium 50 ml @ 100 mls/hr DAILY@09 IV 01/02/25 09:00 01/02/25 09:01 100 MLS/HR Metronidazole 100 ml @ 100 mls/hr Q8HR IV 01/02/25 06:00 01/02/25 13:03 100 MLS/HR Laboratory Results Laboratory Tests 01/02/25 04:03 Chemistry Test 01/02/25 04:03 Albumin 3.7 g/dL (3.2-4.8) Calcium Level 8.9 mg/dL (8.7-10.4) Total Protein 6.2 g/dL (5.7-8.2) LFT Test 01/02/25 04:03 Alanine Aminotransferase (ALT) < 9 U/L (7-40) Alkaline Phosphatase 49 U/L (46-116) Aspartate Amino Transferase (AST) 12 U/L (13-40) L Total Bilirubin 1.2 mg/dL (0.2-1.0) H Urinalysis Test 01/01/25 12:13 Urine Color Yellow (Yellow) Urine Clarity Clear (Clear) Urine pH 6.0 (5.0-9.0) Urine Specific [place] 1.024 (1.001-1.035) Urine Protein Negative (Negative) Urine Ketones Negative (Negative) Urine Blood Negative /uL (Negative) Urine Nitrite Negative (Negative) Urine Bilirubin Negative (Negative) Urine Urobilinogen Normal mg/dL (Negative) Urine Leukocyte Esterase 1+ /uL (Negative) Urine RBC 2 /hpf (0 - 3) Urine Microscopic WBC 3 /HPF (0-3) Urine Squamous Epithelial Cells Few /hpf (<5) Urine Bacteria None seen /hpf (None Seen) Urine Mucus Few (None Seen) Urine Glucose Normal mg/dL (Normal) Labs and/or images reviewed: Labs reviewed by me Assessment/Plan Assessment/Plan Nonobstructing left renal calculus Possible colitis, inflammatory bowel disease Intractable flank pain due to above Intractable abdominal pain due to above Abdomen/Pelvis CT: Punctate nonobstructing left renal calculus measuring 2 mm. Mild bowel wall thickening of the ascending and transverse colon with surrounding stranding which could represent sequela of colitis, inflammatory bowel disease. Trace free pelvic fluid. Chest X-ray: No acute cardiopulmonary disease. Pain management with Tylenol, [place] and Dilaudid Ceftriaxone IV daily Metronidazole IV q8h IV NS 100 MLS/HR Zofran 4 MG IV q4h Tamsulosin 0.4 MG PO qpm Acute urinary retention Bladder scan: >437ml Clarke catheter GERD Protonix 40 MG IV daily Insomnia Zolpidem 10 MG PO hs prn Diet: Soft Continuing current management Plan discussed with: Patient Date of Service: Jan 02, 2025 Billing Provider: RAMON CLAY MD Common Visit Codes: [id number] INP/OBS CARE(HIGH) RAMON CLAY MD Jan 02, 2025 14:52
[2025-01-02] MEDS: PHENAZOPYRIDINE HCL 100 MG TAB PO SCH (18:09)
[2025-01-02] MEDS: TAMSULOSIN HYDROCHLORIDE 0.4 MG CAP PO SCH (18:18)
--- NOTE | 2025-01-02 18:53 | DVH ---
Date: 01/02/2025 04:34 PM Examination: XY KUB ABDOMEN SINGLE VIEW History: rule out left renal calculus, colitis Comparison: XY KUB ABDOMEN SINGLE VIEW on DOS: 08/29/24, XY ACUTE AB SERIES on DOS: 09/12/23, XY KUB ABDOMEN SINGLE VIEW on DOS: 09/02/23, CT ABD/PEL on DOS: 05/05/23, CT ABD/PEL W - IV on DOS: 10/19/22 TECHNIQUE: Frontal views of the abdomen was obtained. FINDINGS: Bowel gas pattern is unremarkable. The lung bases are unremarkable. No acute osseous abnormality identified. IMPRESSION: Nonobstructive bowel gas pattern. Large stool [place]. No radiopaque calculus
[2025-01-02] MEDS: ONDANSETRON HCL 4 MG/2 ML VIAL IV PRN (22:50)
[2025-01-03 01:00] VITALS: BP 115/69; PULSE 64; RESP 17; TEMP 98; O2SAT 97
[2025-01-03 05:00] VITALS: BP 124/80; PULSE 63; RESP 17; TEMP 98.3; O2SAT 98
[2025-01-03 08:00] VITALS: PULSE 72; RESP 19; O2SAT 98
[2025-01-03 08:54] VITALS: BP 123/76; PULSE 60; RESP 20; TEMP 98.7; O2SAT 95
[2025-01-03 12:46] VITALS: BP 133/73; PULSE 79; RESP 20; TEMP 97.9; O2SAT 95
--- NOTE | 2025-01-03 14:59 | DVHDS2 ---
Discharge Summary Date of Admission Jan 01, 2025 at 20:41 Date of Discharge: Jan 03, 2025 Admitting Diagnosis Nonobstructing left renal calculus Possible colitis, inflammatory bowel disease Intractable flank pain due to above Intractable abdominal pain due to above Acute urinary retention GERD Insomnia Labs/Diagnostic Data: Laboratory Results Test 01/02/25 05:00 01/02/25 04:03 01/01/25 12:13 01/01/25 11:18 Urine Opiates Screen Pos (NEGATIVE) Urine Fentanyl Screen Neg (NEGATIVE) Urine Barbiturates Screen Neg (NEGATIVE) Urine Phencyclidine Screen Neg (NEGATIVE) Urine Amphetamines Screen Neg (NEGATIVE) Urine Benzodiazepines Screen Neg (NEGATIVE) Urine Cocaine Screen Neg (NEGATIVE) Urine Cannabinoids Screen Pos (NEGATIVE) White Blood Count 5.6 10^3/uL (4.4-10.8) Red Blood Count 4.12 10^6/uL (4.5-5.90) Hemoglobin 13.0 g/dL (13.5-17.5) Hematocrit 38.3 % (41.0-53.0) Mean Corpuscular Volume 92.8 fL (80.0-100.0) Mean Corpuscular Hemoglobin 31.4 pg (28.0-32.0) Mean Corpuscular Hemoglobin Concent 33.8 g/dL (32.0-36.0) Red Cell Distribution Width 14.1 % (11.8-14.3) Platelet Count 230 10^3/uL (140-450) Mean Platelet Volume 6.9 fL (6.9-10.8) Neutrophils (%) (Auto) 51.6 % (37.0-80.0) Lymphocytes (%) (Auto) 36.0 % (10.0-50.0) Monocytes (%) (Auto) 9.1 % (0.0-12.0) Eosinophils (%) (Auto) 2.6 % (0.0-7.0) Basophils (%) (Auto) 0.7 % (0.0-2.0) Neutrophils # (Auto) 2.9 10 ^3/uL (1.6-8.6) Lymphocytes # (Auto) 2.0 10 ^3/uL (0.4-5.4) Monocytes # (Auto) 0.5 10 ^3/uL (0-1.3) Eosinophils # (Auto) 0.1 10 ^3/uL (0-0.8) Basophils # (Auto) 0 10 ^3/uL (0-0.2) Nucleated Red Blood Cells 0.1 % Erythrocyte Sedimentation Rate 2 mm/hr (0-20) Sodium Level 142 mmol/L (136-145) Potassium Level 3.6 mmol/L (3.5-5.1) Chloride Level 111 mmol/L (98-107) Carbon Dioxide Level 25 mmol/L (20-31) Anion Gap 6 (5-15) Blood Urea Nitrogen 8 mg/dL (9-23) Creatinine 0.87 mg/dL (0.700-1.30) Glomerular Filtration Rate Calc 118 mL/min (>90) BUN/Creatinine Ratio 9.2 (10.0-20.0) Serum Glucose 90 mg/dL (74-106) Calcium Level 8.9 mg/dL (8.7-10.4) Total Bilirubin 1.2 mg/dL (0.2-1.0) Aspartate Amino Transferase (AST) 12 U/L (13-40) Alanine Aminotransferase (ALT) < 9 U/L (7-40) Alkaline Phosphatase 49 U/L (46-116) C-Reactive Protein High Sensitivity < 0.02 mg/dL (<1.0) Total Protein 6.2 g/dL (5.7-8.2) Albumin 3.7 g/dL (3.2-4.8) Urine Color Yellow (Yellow) Urine Clarity Clear (Clear) Urine pH 6.0 (5.0-9.0) Urine Specific [place] 1.024 (1.001-1.035) Urine Protein Negative (Negative) Urine Ketones Negative (Negative) Urine Blood Negative /uL (Negative) Urine Nitrite Negative (Negative) Urine Bilirubin Negative (Negative) Urine Urobilinogen Normal mg/dL (Negative) Urine Leukocyte Esterase 1+ /uL (Negative) Urine RBC 2 /hpf (0 - 3) Urine Microscopic WBC 3 /HPF (0-3) Urine Squamous Epithelial Cells Few /hpf (<5) Urine Bacteria None seen /hpf (None Seen) Urine Mucus Few (None Seen) Urine Glucose Normal mg/dL (Normal) Direct Bilirubin 0.3 mg/dL (<0.3) Lipase 39 U/L (12-53) Other Laboratory Tests 01/02/25 04:03 Brief Hx & Hospital Course: Patient is a 29-year-old male with past medical history of GERD and kidney stones, presented to [facility] ED with complaint of bilateral flank pain. He reports that three days ago he developed left-sided flank pain described as sharp, radiating toward his groin, rated 10/10 in intensity, and associated with nausea, vomiting, urinary tenesmus, dribbling, and dark urine. The pain was minimally relieved by hot showers. Since yesterday, he has experienced similar pain on the right side and developed diarrhea this morning. He denies fever, chest pain, shortness of breath, palpitations, loss of consciousness, hematemesis, or bloody bowel movements. Due to persistence of symptoms, he presents today for evaluation. The patient was given IV fluid. The repeat CT scan showed no stone or no abnormality. The patient also was empirically put on IV antibiotic with Rocephin and Flagyl. Patient remained afebrile in the hospital. So today he tolerated diet. No more flank pain. I am going to discharge him home. Advised him to follow up with primary care physician 1-2 weeks. Activity as tolerated. Diet per home diet. Physical exam: HEENT: Normocephalic atraumatic pupils equal react to light and accommodation. Extraocular muscles intact, conjunctiva pink, oropharynx moist, no thrush, no exudate. Lymphatic: No lymphadenopathy Cardiovascular exam: S1, S2 was heard. No murmurs, rubs, gallops Lung: Clear on auscultation bilaterally, no wheeze, rale, rhonchi. GI: Abdominal soft, nondistended, nontenderness, positive bowel sounds. Extremity: No crepitus, cyanosis, edema. Pedal pulses present bilateral. Full range of motion. Skin: Normal turgor, no rash. Psych: Alert, oriented x3. Neurology: No focal deficits, cranial nerve II to XII grossly intact. This medical document was created using an electronic medical record system with [employer] direct computerized dictation system. Although this document has been carefully reviewed, there may still be some phonetic and typographical errors. These areas are purely typographical due to imperfections of the software programs, and do not reflect any compromise in the patient's medical care. Condition at Discharge: Stable Final Diagnosis/Problems List Nonobstructing left renal calculus Possible colitis, inflammatory bowel disease Intractable flank pain due to above Intractable abdominal pain due to above Acute urinary retention, resolved GERD Insomnia Discharge Disposition: Home Discharge Instruct/Medications Scheduled Acetaminophen (Tylenol Extra Strength Fo), 1,000 MG PO BID Amoxicillin & Pot Clavulanate (Augmentin Tablet), 875 MG PO BID Azithromycin (Azithromycin), 250 MG PO DAILY Carisoprodol (Carisoprodol), 350 MG PO TID, (Reported) Lidocaine (Anorectal) (Lidocaine 5%), 5 % EX DAILY Metoclopramide Hcl (Reglan), 10 MG PO BID Pantoprazole Sodium Sesquihydr (Pantoprazole Sodium), 40 MG PO BID Pantoprazole Sodium Sesquihydr (Protonix), 40 MG PO DAILY, (Reported) Zolpidem Tartrate (Ambien), 1 TAB PO QPM, (Reported) Scheduled PRN Ibuprofen Micronized (Motrin Tablet), 600 MG PO TID PRN Ondansetron HCl (Ondansetron Hydrochloride), PO for NAUSEA / VOMITING, (Reported) Ondansetron Odt 4MG Tab (Zofran Po), 4 MG PO BID PRN Trazodone Hcl (Trazodone Hcl), 150 MG PO QHSP PRN for FOR INSOMNIA, (Reported) [Hydrocodone/Acetaminophen], PO Q4HPRN PRN for MODERATE PAIN, (Reported) Discharge Statement: "Patient was advised to return to the ER or call 911 if any headaches, dizziness, shortness of breath, chest pain, abdominal pain, bleeding, fevers, or worsening of medical condition. Patient was counseled about treatment plan, medications, possible side effects, patientverbalized understanding. All questions were answered to the best of my ability. This discharge took greater then 30 minutes in planning, reviewing documentation, counseling the patient, and discussing with other team members." ASSESSMENT ASSESSMENT Assessment Date of Service: Jan 03, 2025 Billing Provider: RAMON CLAY MD Common Visit Codes: 41705-ZBT/OBS DISCH DAY >30min RAMON CLAY MD Jan 03, 2025 14:59
[2025-01-03 15:58] VITALS: BP 133/73; PULSE 79; RESP 20; TEMP 97.9; O2SAT 95
== END 2025-01-03 16:45 | disposition home or self-care (01) | DRG 249 ==
LOC: ER 10:33 → OVERFLOW 20:41 → WEST WING 01-02 18:31
PROVIDERS: ATTEND Internal Medicine
DX: K52.9 Noninfective gastroenteritis and colitis, unspecified (principal); G47.00 Insomnia, unspecified; J45.909 Unspecified asthma, uncomplicated; K21.9 Gastro-esophageal reflux disease without esophagitis; R33.9 Retention of urine, unspecified; N20.0 Calculus of kidney; Z88.8 Allergy status to other drugs, medicaments and biological substances; Z83.3 Family history of diabetes mellitus; Z82.49 Family history of ischemic heart disease and other diseases of the circulatory system; Z80.9 Family history of malignant neoplasm, unspecified; Z87.442 Personal history of urinary calculi
CPT/HCPCS: 36415; 71045; 74018; 74176; 74177; 80048; 80053; 80076; 80307; 81001; 83690; 85025; 85652; 86141; 87086; G0378; J1885; J2405; J2470; J3490

== ENCOUNTER 2025-02-09 08:58 | Emergency (ER) | payer MEDICAID ==
[~2025-02-09] VITALS: Ht 177.8 cm; Wt 66.0 kg
[~2025-02-09 08:58] MED LIST changes: +PANT40TA2 PO; +ZOLP10TA PO
[2025-02-09 10:10] LABS: Hematocrit 44.4 % (41.0-53.0); Hemoglobin 15.3 g/dL (13.5-17.5); Mean Corpuscular Hemoglobin 31.5 pg (28.0-32.0); Mean Corpuscular Volume 91.3 fL (80.0-100.0); Nucleated Red Blood Cells % 0.1 %
--- NOTE | 2025-02-09 10:12 | ED.PDOC ---
History of Present Illness HPI Comments This is a 29-year old male with past medical history of GERD, colitis and kidney stones who presented to the ED with the chief complaint of abdominal pain. He states he woke up from sleep 2 days ago with abdominal pain, rated as 10/10 in intensity, intermittent, cramping type, more on the right side. This was associated with nausea, multiple episodes of non bilious vomiting and watery diarrhea. He has had multiple hospitalisations recently for similar complaints and was diagnosed with colitis and possible cannabis hyperemesis syndrome. He was also found to have a 2mm kidney stone along with the complaint of hematuria. Chief Complaint: Abdominal Pain Time Seen by MD: 09:10 Primary Care Provider: UNKNOWN Allergies: Coded Allergies: Fentanyl (Verified Allergy, Severe, 04/13/19) Flu Virus Vaccine (Verified Allergy, Unknown, 01/01/25) Home Meds Active Scripts Azithromycin (Azithromycin) 250 Mg Tab, 250 MG PO DAILY MDD 500 for 3 Days, #3 TAB 0 Refills 2 TABLETS ORALLY ON DAY ONE, THEN 1 TABLET ORALLY DAILY FOR 4 DAYS Prov:ESSENCE PRITCHARD 09/01/24 Ondansetron Odt 4MG Tab (ZOFRAN PO) 4 Mg Tb, 4 MG PO BID PRN for 10 Days, #20 TAB ODT TAB-DISSOLVE IN MOUTH, THEN SWALLOW Prov:ESSENCE PRITCHARD RESIDENT 08/31/24 Amoxicillin & Pot Clavulanate (AUGMENTIN TABLET) 875 Mg Tb, 875 MG PO BID for 5 Days, #10 TAB Prov:ESSENCE PRITCHARD RESIDENT 08/31/24 Metoclopramide Hcl (Reglan) 10 Mg Tab, 10 MG PO BID, #30 TAB Prov:JASMINA MANZO 04/04/24 Acetaminophen (Tylenol Extra Strength Fo) 500 Mg Tab, 1000 MG PO BID, #40 TAB Prov:JASMINA MANZO 04/04/24 Ibuprofen Micronized (MOTRIN TABLET) 600 Mg Tb, 600 MG PO TID PRN for 3 Days, #9 TAB *Black box warning-NSAIDS can increase risk of SC & hypertension, GI irritation, ulceration, bleed, perferation. Do not use post cardiac surgery. Use short duration/lowest effective dose. Prov:LORIE JENSEN MD 03/25/24 Lidocaine (Anorectal) (Lidocaine 5%) 5 % Cre, 5 % EX DAILY, #30 CRE Prov:JASMINA MANZO 11/22/23 Pantoprazole Sodium Sesquihydr (Pantoprazole Sodium) 40 Mg Tab, 40 MG PO BID, #100 TAB Prov:LUCILA ALMANZAR MD 04/26/17 Reported Medications Pantoprazole Sodium Sesquihydr (Protonix) 40 Mg Tab, 40 MG PO DAILY, #30 TAB 01/02/25 Zolpidem Tartrate (Ambien) 10 Mg Tab, 1 TAB PO QPM, #30 TAB 5 Refills 01/02/25 Ondansetron HCl (Ondansetron Hydrochloride) 8 Mg Tab, PO PRN for NAUSEA / VOMITING 08/28/24 [Hydrocodone/Acetaminophen] 7.5/325MG No Conflict Check, PO Q4HPRN PRN for MODERATE PAIN, #60 07/24/14 Trazodone Hcl (Trazodone Hcl) 150 Mg Tab, 150 MG PO QHSP PRN for FOR INSOMNIA, #30 07/24/14 Carisoprodol (Carisoprodol) 350 Mg Tab, 350 MG PO TID, #90 07/24/14 Information Source: Patient Mode of Arrival: Ambulatory Severity: Moderate Timing: Days Prehospital treatment: None Past Medical History PAST MEDICAL HISTORY: Asthma, GERD, Kidney Stones Surgical History: Tonsillectomy Family History Family History: Reviewed,noncontributory to illness, Family hx of DM, Family hx of Cancer, Family hx of HTN Social History Smoker: Non-Smoker Alcohol: Denies ETOH Use Drugs: Marijuana Lives In: Home Constitutional: denies: chills, diaphoresis, fatigue, fever, malaise, sweats, weakness, others EENTM: denies: blurred vision, double vision, ear bleeding, ear discharge, ear drainage, ear pain, ear ringing, eye pain, eye redness, hearing loss, mouth pain, mouth swelling, nasal discharge, nose bleeding, nose congestion, nose pain, photophobia, tearing, throat pain, throat swelling, voice changes, others Respiratory: denies: cough, hemoptysis, orthopnea, SOB at rest, shortness of breath, SOB with excertion, stridor, wheezing, others Cardiovascular: denies: chest pain, dizzy spells, diaphoresis, Dyspnea on exertion, edema, irregular heart beat, left arm pain, lightheadedness, palpitations, PND, syncope, others Gastrointestinal: reports: abdominal pain, diarrhea, nausea, vomiting; denies: abdomen distended, blood streaked bowels, constipated, dysphagia, difficulty swallowing, hematemesis, melena, poor appetite, poor fluid intake, rectal bleeding, rectal pain, others Genitourinary: denies: burning, dysuria, flank pain, frequency, hematuria, incontinence, penile discharge, penile sore, pain, testicle pain, testicle swelling, urgency, others Neurological: denies: dizziness, fainting, headache, left sided numbness, left sided weakness, numbness, paresthesia, pre-existing deficit, right sided numbness, right sided weakness, seizure, speech problems, tingling, tremors, weakness, others Musculoskeletal: denies: back pain, gout, joint pain, joint swelling, muscle pain, muscle stiffness, neck pain, others Integumetry: denies: bruises, change in color, change in hair/nails, dryness, laceration, lesions, lumps, rash, wounds, others Allergic/Immunocompromised: denies: Difficulty Healing, Frequent Infections, Hives, Itching, others Hematologic/Lymphatic: denies: anemia, blood clots, easy bleeding, easy bruising, swollen glands, others Endocrine: denies: excessive hunger, excessive sweating, excessive thirst, excessive urination, flushing, intolerance to cold, intolerance to heat, unexplained weight gain, unexplained weight loss, others Psychiatric: denies: anxiety, bipolar disorder, depression, hopeless, panic disorder, schizophrenia, sleepless, suicidal, others Physical Exam General Appearance: Thin HEENT: Normal ENT Inspection Neck: Non-Tender, Normal Inspection Respiratory: Chest Non-Tender, Lungs Clear, Normal Breath Sounds Cardiovascular: No Edema, No Murmur, Normal Peripheral Pulses Breast Exam: Normal Gastrointestinal: Normal Bowel Sounds, RLQ, Suprapubic Genitalia: Deferred Pelvic: Deferred Rectal: Deferred Extremities: Normal inspection, Normal range of motion, Non-tender, No pedal edema Neurologic: No Motor Deficits, Normal Affect, No Sensory Deficits Cerebellar Function: Normal Reflexes: Normal Skin: Normal Color Lymphatic: No Adenopathy Was a procedure done? Was a procedure done?: No Differential Dx Considerations may include: colitis, UTI, cannabis hyperemesis syndrome, gastroenteritis X-Ray, Labs, Meds, VS Vital Signs Date Time Temp Pulse Resp B/P (MAP) Pulse Ox O2 Delivery O2 Flow Rate FiO2 02/09/25 09:00 98.3 84 18 121/76 98 98.3 Lab Test 02/09/25 09:42 Range/Units White Blood Count Pending Red Blood Count Pending Hemoglobin Pending Hematocrit Pending Mean Corpuscular Volume Pending Mean Corpuscular Hemoglobin Pending Mean Corpuscular Hemoglobin Concent Pending Red Cell Distribution Width Pending Platelet Count Pending Mean Platelet Volume Pending Neutrophils (%) (Auto) Pending Lymphocytes (%) (Auto) Pending Monocytes (%) (Auto) Pending Basophils (%) (Auto) Pending Neutrophils # (Auto) Pending Lymphocytes # (Auto) Pending Monocytes # (Auto) Pending Sodium Level Pending Potassium Level Pending Chloride Level Pending Carbon Dioxide Level Pending Anion Gap Pending Blood Urea Nitrogen Pending Creatinine Pending Glomerular Filtration Rate Calc Pending BUN/Creatinine Ratio Pending Serum Glucose Pending Lactic Acid Level Pending Calcium Level Pending Time of 1ST Reevaluation: 09:30 Reevaluation 1ST: Unchanged Patient Education/Counseling: Diagnosis, Treatment, Prognosis Family Education/Counseling: No Family Present SEPSIS Sepsis Screen Date sepsis recognized/suspect: Feb 09, 2025 Time Sepsis recognized/suspect: 899 Recent Procedure: No On Antibiotic Therapy: No Respiratory Rate >20: No Heart Rate >90: No Temp<36 C (96.8 F) or >38.3 C: No SBP <90 or MAP <65 mmHG: No New Acute Mental Status Change: No Is the patient on CPAP, BIPAP,: No Physician Orders Complete Blood Count (02/09/25 09:25) Basic Metabolic Panel (02/09/25 09:25) Urinalysis (02/09/25 09:25) Urine Bacterial Culture (02/09/25 09:25) Drug Screen (02/09/25 09:28) Lactic Acid W/ Reflex Order (02/09/25 09:32) Morphine Sulfate Injection (02/09/25 10:00) Vital Signs Date Time Temp Pulse Resp B/P (MAP) Pulse Ox O2 Delivery O2 Flow Rate FiO2 02/09/25 09:00 98.3 84 18 121/76 98 98.3 Laboratory Tests Test 02/09/25 09:42 Lactic Acid Level Pending White Blood Count Pending Departure 1 Departure Time of Disposition: 09:15 Impression: Primary Impression: Colitis Additional Impressions: Gastroenteritis Cannabis hyperemesis syndrome concurrent with and due to cannabis abuse Urinary tract infection Disposition: 30 STILL A PATIENT Condition: Fair Critical Care Note Critical Care Time?: No Stability Stability form required: FANNIE Chapa RESIDENT Feb 09, 2025 10:12
[2025-02-09 10:16] LABS: Potassium 4.2 mmol/L (3.5-5.1); Sodium 142 mmol/L (136-145)
[2025-02-09 10:17] LABS: Anion Gap 2 (5-15); Calcium 9.9 mg/dL (8.7-10.4); Carbon Dioxide 27 mmol/L (20-31); Chloride 113 mmol/L (98-107)
[2025-02-09 10:22] LABS: BUN/Creatinine Ratio 5.9 (10.0-20.0); Glucose 90 mg/dL (74-106)
[2025-02-09 10:32] LABS: Blood Urea Nitrogen 6 mg/dL (9-23)
[2025-02-09] MEDS: MORPHINE SULFATE 4 MG/ML SYR/VIAL IM ONE (10:42)
[2025-02-09] MEDS: KETOROLAC TROMETH 60MG/2ML VIAL IM ONE (10:50)
[2025-02-09 11:49] VITALS: BP 120/88; PULSE 86; RESP 20; TEMP 98.3; O2SAT 98
[2025-02-09] MEDS: ONDANSETRON ODT 4 MG TAB PO ONE (11:59)
[2025-02-09] MEDS: LORazepam 2MG/ML-1ML VIAL IV ONE (12:15)
[2025-02-09] MEDS ORDERED: LORazepam 0.5 MG TAB PO ONE (12:15)
[2025-02-09 12:30] LABS: Urine Protein, UAD 1+ (Negative)
[2025-02-09 13:02] LABS: Amphetamine Screen, Urine Neg (NEGATIVE); Barbiturate Scree,Urine Neg (NEGATIVE); Benzodiazephine Screen, Urine Neg (NEGATIVE); Cannabinoid Screen, Urine Pos (NEGATIVE); Cocaine Screen, Urine Neg (NEGATIVE); Opiate Scree,Urine Neg (NEGATIVE); Phencyclidine Screen, Urine Neg (NEGATIVE)
== END 2025-02-09 14:48 | disposition home or self-care (01) ==
LOC: ER 08:58
DX: K52.9 Noninfective gastroenteritis and colitis, unspecified (principal); N39.0 Urinary tract infection, site not specified; R11.16 Cannabis hyperemesis syndrome; J45.909 Unspecified asthma, uncomplicated; Z79.899 Other long term (current) drug therapy; Z88.5 Allergy status to narcotic agent; Z90.89 Acquired absence of other organs
CPT/HCPCS: 36415; 80048; 80307; 81001; 83605; 85025; 96372; 99283; J1885; Q0162